=== PATIENT | male | born 1935 | race Caucasian/White ===

== ENCOUNTER → 2016-11-20 | Outpatient (CLI) | payer OTHER, MEDICARE | LOC: MOB LAB 11:53 | DX: E11.9 Type 2 diabetes mellitus without complications (principal); Z79.4 Long term (current) use of insulin; E55.9 Vitamin D deficiency, unspecified | CPT/HCPCS: 36415; 82306; 83036 ==

== ENCOUNTER 2016-12-12 16:05 | Inpatient (IN) | payer OTHER, MEDICARE ==
[2016-12-12] MEDS ORDERED: NORMAL SALINE 10 ML SYRINGE FLUSH IVP PRN ×2 (16:29→20:23)
[2016-12-12] MEDS ORDERED: Pantoprazole Inj 40 MG in Normal Saline Flush 10 ML IVP ONE (16:29)
[2016-12-12] MEDS ORDERED: Sodium Chloride 0.9% 1,000 ML PRIMARY IV ONE (16:29)
[2016-12-12] MEDS ORDERED: MORPHINE SULFATE 2 MG/1 ML IVP ONE ×2 (16:29→19:04)
[2016-12-12] MEDS ORDERED: ONDANSETRON 4 MG/2 ML VIAL IVP ONE (16:29)
[2016-12-12 16:41] LABS: HEMATOCRIT 55.8 % (42.0-52.0); HEMOGLOBIN 18.8 g/dL (14.0-18.0); MEAN CORPUSCULAR HGB CONC 33.7 g/dL (33-37); MEAN CORPUSCULAR VOLUME 86.1 FL (80-90); RED BLOOD COUNT 6.48 10^6/uL (4.70-6.10)
--- NOTE | 2016-12-12 16:50 | PDOC ---
General Adult HPI - General Chief Complaint: Abdomen Pain Stated Complaint: ABD PAIN X24 HOURS Date Seen by Provider: 12/12/16 Time Seen by Provider: 16:30 Source: POSITIVE: Patient Exam Limitations: POSITIVE: No limitations Nurse's Notes Reviewed & Considered: Yes - History of Present Illness Initial Comment: The patient is an 81-year-old male who presents to the emergency department with abdominal pain. He states that for the past 3 or 4 days he has not really had a normal bowel movement. Starting earlier this morning he developed some pain in the epigastric region. He states initially he had taken some ibuprofen and had fairly good pain relief. His pain returned this afternoon and was unimproved after taking another dose of Tylenol. He does not have any associated nausea or vomiting. He denies urinary complaints. He has not had any fevers or chills. He describes the pain is generalized in his abdomen however more intense towards the top of his abdomen. He does have some component of burning pain. He also has some radiation of pain through to his back. He has had previous inguinal hernia repairs however denies any other abdominal surgery. He did have an episode of pancreatitis some years back and was subsequently referred to the handbook writer in [place] and had a stent placed in his bile duct. He has not had any recurrence of that problem since then. He does report he thinks he has some problems with his gallbladder. He states that about once a month he gets pain in the right upper quadrant. He also reports that he had an upper endoscopy at one point that did show an ulcer and he was treated for H. pylori at that time. Have you received a tetanus shot in the past 10 years?: Unknown - Patient Home Medications Home Medications: Home Medications Nifedipine [Nifedipine ER] 30 mg PO DAILY 05/10/14 metFORMIN Tab [Glucophage Tab] 850 mg PO BID 05/10/14 Blood Sugar Diagnostic [Glucose Test Strip] 1 each IN PRN strip 05/12/14 Syring W-Ndl,Disp,Insul,0.5 ml [Insulin Syringe] 1 each MC PRN box 05/12/14 Losartan Potassium 1 tab PO DAILY #90 tab 07/21/14 Metoprolol Tartrate 1 tab PO BID #180 tab 07/21/14 Simvastatin 0.5 tab PO HS #45 tab 07/21/14 Triamcinolone Acetonide 15 gm TP QD #1 tube 07/21/14 Ibuprofen [Advil] 400 mg PO Q4H PRN 12/05/14 Aspirin 1 tab PO DAILY #30 tab 02/24/15 Tamsulosin HCl 1 cap PO QD #30 cap 02/24/15 Cholecalciferol (Vitamin D3) [Vitamin D3] 1 cap PO QD #30 cap 07/05/15 - Patient Allergies Allergies/Adverse Reactions: Allergies Allergy/AdvReac Type Severity Reaction Status Date / Time clopidogrel bisulfate Allergy MUSCLE Verified 12/12/16 16:41 [From Plavix] ACHES Penicillins Allergy HIVES Verified 12/12/16 16:41 Past Medical History - heen HEENT History: Cataracts Cardiovascular History: Hypertension, Previous KS, Hyperlipidemia, Other ( please comment) Additional Cardiovasular History: stent Respiratory History: Denies History Gastrointestinal History: Denies History Genitourinary History: Other (please comment) Additional Genitourinary History: URINARY RETENTION. UTI Endocrine History: Type 2 Diabetes (insulin) Musculoskeletal History: Denies History Prosthesis or Implant: No Neurological History: Denies History Blood Disorders: Denies History Psychiatric History: Denies History History of Sexually Transmitted Diseases: No Cancer History: Denies History History of MDRO: Unknown History of Other Communicable Diseases: No Alcohol Use: None Substance Use Type: None Previous Surgical History: Yes Type / Date of Surgery: CATARACT SX 06/2015. CAROTID ARTERY LT. CARDIAC STENT. KNEE SCOPE 2001. TONSILLECTOMY. MULTIPLE HERNIA REPAIRS Significant Family History: No pertinent family hx Past Medical History Reviewed: Reviewed - No Changes ROS - Limitations ROS Limitations: No Limitations Constitution: DENIES: Chills, Fever Cardiovascular: REPORTS: Denies Cardiac Symptoms. DENIES: Chest Pain Respiratory: REPORTS: Denies Resp Symptoms, Other (He was hypoxic on arrival here with oxygen saturations around 86% on room air. He states that his oxygen levels are always low and they checked them. He does not wear oxygen at home. He does have a history of smoking for 50 years and quit approximately 10 years ago.). DENIES: Shortness Of Breath Neurological: REPORTS: Denies Neuro Symptoms Gastrointestinal: REPORTS: Abdominal Pain, Constipation. DENIES: Nausea, Vomitting, Black Stools, Bloody Stools Endocrine: REPORTS: Denies Symptoms Musculoskeletal: REPORTS: Denies MS Symptoms Genitourinary: REPORTS: Denies Symptoms. DENIES: Dysuria, Difficulty Urinating Eyes: REPORTS: Denies Symptoms ENT: REPORTS: Denies Symptoms Skin: DENIES: Rash General Adult Exam - General Appearance General Appearance: POSITIVE: Alert, Cooperative, No Acute Distress - HEENT HEENT: POSITIVE: Head Inspection Nml, Eyes Inspection Nml, Ears Inspection Nml, Pharynx Inspect. Nml, PERRL, EOMI - Neck Neck: POSITIVE: Normal Inspection. NEGATIVE: Lymphadenopathy - Respiratory Respiratory: POSITIVE: No Respiratory Distress, Breath Sounds Normal - Cardiovascular Cardiovascular: POSITIVE: Regular Rate & Rhythm, No Murmur - Abdomen Abdomen: Soft: (All Quadrants) Additional Abdominal Details: His abdomen is slightly distended, he does have generalized abdominal tenderness although this is more prominent in the upper abdomen, no guarding or rebound tenderness, no palpable mass. - Skin Skin: POSITIVE: Normal Color, No Rash - Extremities Extremity: Normal ROM: (All Extremities), Normal Inspection: (All Extremities) - Neurological / Psychological Neurological: POSITIVE: Oriented X3, Motor Normal, Sensation Normal General Adult Progress - Results Reviewed by me Xrays/CTs/US Reviewed by me: Yes Discussed with Radiologist: Yes Radiology Findings: CT scan of the abdomen and pelvis with IV contrast reveals a cecal mass with associated dilated ileum and decompressed colon consistent with obstruction per radiologist. In addition he has other findings including cholelithiasis, small hypodense lesion in the liver, left adrenal mass, small right lower lung lesion. Lab Results Reviewed: Yes Lab Results:: Laboratory Results 12/12/16 Range/Units 16:30 WBC 14.23 H (4.8-10.8) 10^3/uL RBC 6.48 H (4.70-6.10) 10^6/uL Hgb 18.8 H (14.0-18.0) g/dL Hct 55.8 H (42.0-52.0) % MCV 86.1 (80-90) FL MCH 29.0 (27-31) PG MCHC 33.7 (33-37) g/dL RDW Std Deviation 47.3 (39-50) fL RDW Coeff of Mercedes 14.9 H (11.5-14.5) % Plt Count 230 (140-350) 10*3/uL MPV 10.0 (7.4-12.2) FL Neutrophils % (Manual) 73 (50-80) % Band Neutrophils % 1 (0-10) % Lymphocytes % (Manual) 18 (10-50) % Monocytes % (Manual) 7 (0-12) % Eosinophils % (Manual) 1 (0-8) % Basophils % (Manual) 0 (0-1) % Metamyelocytes % 0 % Myelocytes % 0 % Promyelocytes % 0 % Blast Cells 0 (0-1) % WBC Morphology Comment See comments (NORM) Plt Morphology Comment Normal morphology (NORM) RBC Morph Comment Normal morphology (NORM) Sodium 140 (135-145) meq/L Potassium 4.8 (3.8-5.2) meq/L Chloride 102 (98-112) meq/L Carbon Dioxide 27 (23-33) meq/L Anion Gap 11 (5-20) BUN 25 H (7-22) mg/dL Creatinine 1.2 (0.70-1.50) mg/dL Estimated GFR (>60 ml/min/1.73m(2)) BUN/Creatinine Ratio 20.83 H (6-20) Glucose 189 H (78-110) mg/dL Calculated Osmolality 298.0 H (267-292) mOsm/kg Calcium 9.4 (8.7-10.7) mg/dL Magnesium 1.9 (1.6-2.4) mg/dL Total Bilirubin 1.0 (0.3-1.2) mg/dL AST 41 (21-57) IU/L ALT 29 (21-72) IU/L Alkaline Phosphatase 90 (38-126) IU/L Troponin I < 0.012 (< 0.040) ng/mL C-Reactive Protein 1.0 H (0.0-0.9) mg/dL Total Protein 7.8 (6.1-8.0) g/dL Albumin 4.2 (3.5-4.8) g/dL Globulin 3.6 (2.50-4.10) g/dL Albumin/Globulin Ratio 1.10 L (1.3-2.0) mg/g Amylase 68 (30-110) U/L Lipase < 10 L (23-300) IU/L Serum Alcohol < 10 (0-10) mg/dL - Patient's Progress MDM / ED Course: An IV was established and the patient did receive 2 mg of morphine and 4 mg of Zofran IV as well as Protonix 40 mg IV. He did have pain relief initially. After CT the findings were discussed with the patient. A surgical consultation was obtained from Dr. Nobles. He recommended admission to the hospitalist and will see the patient in consultation. I subsequently discussed patient with Dr. Myers and he has agreed to admit the patient for further evaluation and treatment. He did receive a second dose of morphine 2 mg IV secondary to recurrent pain. He did not have any vomiting here in the emergency department. - Consult Counseled: POSITIVE: Patient, Family, RE: Lab Results, RE: Radiology Results, RE : DX Patient Care Time - Estimated PCT Patient Care Time (In Minutes): 45 Vital Signs - Recent Vital Signs Vital Signs: Vital Signs (Last 8 hours) Temp Pulse Resp BP Pulse Ox 12/12/16 16:15 84 16 91 12/12/16 16:05 96.2 F L 87 16 166/96 85 - VS Reviewed Vital Signs Reviewed: Yes Discharge Clinical Impression: Mass of cecum, Intestinal obstruction Discharge Disposition: Admit to Inpatient Condition: Stable Date Decision to Admit to Inpatient: 12/12/16 Time Decision to Admit to Inpatient: 18:45
--- NOTE | 2016-12-12 16:51 | EKG ---
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
[2016-12-12 16:57] LABS: BLOOD UREA NITROGEN 25 mg/dL (7-22); BUN/CREATININE RATIO 20.83 (6-20); CALCIUM 9.4 mg/dL (8.7-10.7); LIPASE < 10 IU/L (23-300); SERUM ALBUMIN 4.2 g/dL (3.5-4.8)
[2016-12-12 16:58] LABS: MAGNESIUM 1.9 mg/dL (1.6-2.4)
[2016-12-12 17:00] LABS: PLATELET MORPHOLOGY COMMENT NORMAL MORPHOLOGY (NORM); RBC MORPHOLOGY COMMENT NORMAL MORPHOLOGY (NORM)
[2016-12-12 17:01] LABS: BAND NEUTROPHILS % 1 % (0-10); BASOPHILS % (MANUAL) 0 % (0-1); EOSINOPHILS % (MANUAL) 1 % (0-8); LYMPHOCYTES % (MANUAL) 18 % (10-50); METAMYELOCYTES % 0 %; MONOCYTES % (MANUAL) 7 % (0-12); MYELOCYTES % 0 %; NEUTROPHILS % (MANUAL) 73 % (50-80); PROMYELOCYTES % 0 %; WBC MORPHOLOGY COMMENT SEE COMMENTS (NORM)
--- NOTE | 2016-12-12 18:19 | DI ---
CT ABDOMEN SCAN WITH IV CONTRAST, 12/12/2016 4:30 PM : Clinical History: Abdominal pain. Previous Exam: None at this facility. Scans are performed from the lower lung bases through the liver and kidneys with IV contrast. 75 ml o f Isovue 300 was injected IV. No oral or rectal contrast was ordered. 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 There is a sof t tissue mass measuring about 20 mm in diameter between the posteromedial aspect of the right diaphra gm and the right lateral margin of T12 vertebral body. Coronary artery calcifications are present in the right coronary artery distribution. There is a 10 mm low-density lesion along the anterolateral m argin of the right lobe of the liver and the density is indeterminate for representing either a cysti c lesion or a solid lesion. Calcified gallstones are present in the neck of the gallbladder without e vidence of acute cholecystitis. There is no abnormality of the spleen, pancreas, and right adrenal gl and. There is a 14 mm high density, probably enhancing lesion, of the left adrenal gland. Both kidney s are normal in size, shape, position and contour. There is no hydronephrosis or hydroureter. No thao l or ureteral calculi are present. There are no abnormal retrocrural or periaortic nodes. No ascites is present. READIN. 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 2. There is a 10 mm low-density lesion located along the anterolateral margin of the right lower honey er and this is indeterminate as to whether it is a solid or cystic lesion. 3. Cholelithiasis. 4. 14 mm lesion of the left adrenal gland, with possible enhancement. 5. Coronary artery disease with dense calcifications in the right coronary artery distribution. CT PELVIS SCAN WITH IV CONTRAST, 12/12/2016 4:30 PM: Clinical History: See above. Previous Exam: None at this facility. Scans are performed from just superior to the umbilicus to the symphysis pubis with IV contrast. This is the same bolus of contrast used for the CT scans of the abdomen. There is no ascites. The colon is completely decompressed and does contain some gas in minimal amount s of stool and there is the appearance of an enhancing 4-5 cm mass in what should be the region of th e cecum. No periserosal inflammatory changes are identified. The appendix is not visualized. The dist al ileum arising from this mass and extending retrograde to the junction between the jejunum and ileu m is dilated and has air-fluid levels. The jejunum is decompressed. The differential would be between a cecal mass involving the ileocecal valve versus appendicitis with an abscess. This latter possibil ity is felt to be much less likely. There are no hernias. There is marked prostatic hypertrophy. Ther e are no blastic or lytic bony changes noted. READIN. There is evidence of distention of the ileum from the junction near the jejunum although we to wh at should be the terminal ileum with an associated 4-5 cm enhancing lesion in the area of the cecum. 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 If a [facility] definitive procedure is required, consider a repeat CT scan of the abdomen and pelvis with IV con trast and water for rectal contrast, provided there are no signs of peritonitis. 2. Prosthetic hypertrophy. There is no evidence of blastic or lytic bony changes.
[2016-12-12] MEDS ORDERED: LIDOCAINE W/ SODIUM BICARB 0.5 ML SYR SUBD PRN ×2 (20:23→20:39)
[2016-12-12] MEDS ORDERED: Lactated Ringers 1,000 ML PRIMARY IV SCH (20:30)
--- NOTE | 2016-12-12 20:42 | CONSULT ---
Consult Note - Consult Consult Date: 12/12/16 Reason for Consult: PreOp Consulation : General Surgery Requesting Physician: Dr. Quinetro, Dr. Myers. Primary Care Provider: Joe Ma MD - History of Present Illness History of Present Illness: Patient is an 81-year-old male who reports problems started a couple days ago. Yesterday he didn't have much appetite and had some abdominal discomfort. He ate fruit for dinner. This morning he awoke and felt bloated. He drink some coffee and developed severe abdominal pain. He took some Advil with resolution. He then ate beams and ham for lunch and developed severe pain. He presented to the emergency room for the same. He has not had a normal bowel movement since late last week. He has had a decreased appetite. He feels bloated. His abdomen is distended. He has had no nausea or vomiting. He has never had anything like this before. Patient reports he has had a colonoscopy but the last one was at least 12 years ago. He reports his bowel function had been normal until late last week. On presentation his abdomen was bloated with generalized tenderness. His white count was elevated at 14,000. He had a CAT scan of his abdomen and pelvis. He has gallstones in his gallbladder. He has dilation of his terminal ileum with fecalization of the small bowel contents. There is an enhancing lesion in the cecum. The colon is decompressed passed the cecum. The appendix was not clearly seen. There is a lesion in his left adrenal gland. There are several in his liver. There is one between his diaphragm and his 12th thoracic vertebrae. These are indeterminate at this time. I have personally reviewed the CT scans and discussed them with the radiologist. The patient has a bowel obstruction. The proximal bowel is not particularly dilated. I discussed all these findings with the patient and his family. Patient will be admitted to the hospitalist service and tuned up and hydrated overnight. We' ll check his labs in the morning. We'll get an ultrasound of his liver to see if we need to address these lesions at the time of surgery. If they are simple cysts no biopsies will be needed. Proceed with exploratory laparotomy with planned right hemicolectomy with anastomosis with possible cholecystectomy and possible liver biopsy as indicated at the time of surgery. We will plan surgery for approximately noon tomorrow. Review of Systems - Gastrointestinal Gastrointestinal / Abdominal: REPORTS: Abdominal Pain, Poor Appetite, Bloating, See HPI Past Medical History Medical History: COPD. Diabetes. Hypertension. Hyperlipidemia. Coronary artery disease with previous myocardial infarction and coronary stent placement. Cerebrovascular disease. Peripheral vascular disease. Gout. Surgical History: Bilateral inguinal herniorrhaphy. Subsequent right inguinal herniorrhaphy. Final right inguinal herniorrhaphy in 2006. Left carotid endarterectomy. Tonsillectomy and adenoidectomy. Bilateral cataract surgery. Knee arthroscopy. Remote colonoscopy. Tobacco Use: Former Smoker Substance Use Type: None Medication / Allergies Home Medications: Home Medications Medication Instructions Recorded Confirmed Type Nifedipine [Nifedipine ER] 30 mg PO DAILY 05/10/14 12/12/16 History metFORMIN Tab [Glucophage Tab] 850 mg PO BID 05/10/14 12/12/16 History Blood Sugar Diagnostic [Glucose 1 each IN PRN strip 05/12/14 12/12/16 History Test Strip] Syring W-Ndl,Disp,Insul,0.5 ml 1 each MC PRN box 05/12/14 12/12/16 History [Insulin Syringe] Losartan Potassium 1 tab PO DAILY #90 tab 07/21/14 12/12/16 Clinic Metoprolol Tartrate 1 tab PO BID #180 tab 07/21/14 12/12/16 Clinic Simvastatin 0.5 tab PO HS #45 tab 07/21/14 12/12/16 Clinic Triamcinolone Acetonide 15 gm TP QD #1 tube 07/21/14 12/12/16 Clinic Ibuprofen [Advil] 400 mg PO Q4H PRN 12/05/14 12/12/16 History Aspirin 1 tab PO DAILY #30 tab 02/24/15 12/12/16 Clinic Tamsulosin HCl 1 cap PO QD #30 cap 02/24/15 12/12/16 Clinic Cholecalciferol (Vitamin D3) 1 cap PO QD #30 cap 07/05/15 12/12/16 Clinic [Vitamin D3] Allergies/Adverse Reactions: Allergies Allergy/AdvReac Type Severity Reaction Status Date / Time clopidogrel bisulfate Allergy MUSCLE Verified 12/12/16 20:22 [From Plavix] ACHES Penicillins Allergy HIVES Verified 12/12/16 20:22 Exam - Vitals Vital Signs: Vital Signs Weight 76.748 kg - General General Appearance: POSITIVE: No Acute Distress, Cooperative - Respiratory Respiratory Exam: POSITIVE: Clear to Auscultation - Bilaterally, Breathing Non Labored - Cardiovascular Cardiovascular Exam: POSITIVE: RRR, No Murmur - GI/Abdominal GI/Abdominal Exam: POSITIVE: Soft, Hypoactive Bowel Sounds Additional GI/Abdominal Exam Details: Abdomen is distended but soft. Dilated bowel loops can be palpated through his thin abdominal wall. No peritoneal signs. Diffusely tender. No obvious masses. Obstructive bowel tones. 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 Needs surgical correction. Plan right colectomy with planned anastomosis tomorrow. The possibility of an ostomy has been discussed. Possible liver biopsy as well as possible cholecystectomy has also been discussed.The procedure has been discussed with the patient in complete yet simple terms including benefits, risks, and alternatives. All questions have been answered. Informed consent has been obtained. (2) Cecum mass Current Visit: Yes Status: Acute Priority: High Diagnosis Date: 12/12/16 Comment: Causing obstruction as above. Possible liver, lung, and adrenal metastases. (3) Cholelithiasis Current Visit: Yes Status: Chronic Priority: Low Diagnosis Date: 12/12/16 Comment: No obvious symptoms. Does not appear to have acute cholecystitis. Possible cholecystectomy at time of surgery depending on how he is doing.
--- NOTE | 2016-12-12 20:47 | PDOC ---
History and Physical - History of Present Illness Date and Time of Service: 12/12/2016 8:30 PM Chief Complaint: Abdominal pain of one day duration History of Present Illness: This is a 81 years old male with medical history significant for history of diabetes, hypertension, hyperlipidemia, coronary artery disease with previous infarct, peripheral vascular disease who presented to the ER with history of abdominal pain. He said he didn't feel good yesterday with some discomfort but this morning he woke up and felt bloated he had some coffee and then had severe abdominal pain all over he took some Advil and that seemed to help. He ate and then after that the pain started again was severe and the because of that he came into the ER. There was no vomiting, he did say that he is been constipated for the last few days. He is bloated. There is no melena. Because of all the symptoms he came into the ER evaluation in the ER with a CT suggested distention of the ileum from the Jejunum, there is 5 cm enhancing lesion in the area of the cecum. 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 This was discussed with Dr. Nobles who suggested admission to the hospitalist service. He is more comfortable he said now after the morphine that he got in the ER. He is not nauseated. Still bloated. He's not passing gas. He is denying currently shortness of breath or chest pain. Past Medical History Medical History: 1. Coronary artery disease with previous TN and stenting in 2000. 2. Diabetes since 2000. 3. Hypertension. 4. Hyperlipidemia. 5. History of acute pancreatitis in 2001 Surgical History: 1. Status post the carotid endarterectomy 2011. 2. Bilateral inguinal hernia repair in the 80s. 3. Right inguinal hernia repair in 2006. 4. Tonsillectomy. 5. Cataract surgery Pertinent Family History: Sister had colon cancer at age 44, father at age 74 from pancreatic cancer Past Social History: Used to smoke quit more than 10 years ago, occasionally drinks, no drugs. Tobacco Use: Former Smoker Substance Use Type: None Alcohol Use: Occasionally Medication / Allergies Home Medications: Home Medications Medication Instructions Recorded Confirmed Type Nifedipine [Nifedipine ER] 30 mg PO DAILY 05/10/14 12/12/16 History metFORMIN Tab [Glucophage Tab] 850 mg PO BID 05/10/14 12/12/16 History Blood Sugar Diagnostic [Glucose 1 each IN PRN strip 05/12/14 12/12/16 History Test Strip] Syring W-Ndl,Disp,Insul,0.5 ml 1 each MC PRN box 05/12/14 12/12/16 History [Insulin Syringe] Losartan Potassium 1 tab PO DAILY #90 tab 07/21/14 12/12/16 Clinic Metoprolol Tartrate 1 tab PO BID #180 tab 07/21/14 12/12/16 Clinic Simvastatin 0.5 tab PO HS #45 tab 07/21/14 12/12/16 Clinic Triamcinolone Acetonide 15 gm TP QD #1 tube 07/21/14 12/12/16 Clinic Ibuprofen [Advil] 400 mg PO Q4H PRN 12/05/14 12/12/16 History Aspirin 1 tab PO DAILY #30 tab 02/24/15 12/12/16 Clinic Tamsulosin HCl 1 cap PO QD #30 cap 02/24/15 12/12/16 Clinic Cholecalciferol (Vitamin D3) 1 cap PO QD #30 cap 07/05/15 12/12/16 Clinic [Vitamin D3] Allergies/Adverse Reactions: Allergies Allergy/AdvReac Type Severity Reaction Status Date / Time clopidogrel bisulfate Allergy MUSCLE Verified 12/13/16 06:50 [From Plavix] ACHES Penicillins Allergy HIVES Verified 12/13/16 06:50 Review of Systems - Review of Systems All Systems: Reviewed & No Additional Complaints Except as Stated Exam - Vitals Vital Signs: Vital Signs Height 6 ft Weight 169 lb 3.2 oz - General General Appearance: POSITIVE: No Acute Distress - Head Head Exam: POSITIVE: Normal Inspection, Atraumatic - Eye Eye Exam: POSITIVE: Normal Appearance - ENT ENT Exam: POSITIVE: Normal Exam - Neck Neck Exam: POSITIVE: Normal Inspection - Respiratory Respiratory Exam: POSITIVE: Clear to Auscultation - Bilaterally - Cardiovascular Cardiovascular Exam: POSITIVE: RRR - GI/Abdominal GI/Abdominal Exam: POSITIVE: Non Tender, Soft, Distended, No Organomegaly - Rectal Rectal Exam: POSITIVE: Deferred - External Exam: POSITIVE: Deferred - Extremities Extremities Exam: POSITIVE: Normal Inspection - Back Back Exam: POSITIVE: Normal Inspection - Neurological Neurological Exam: POSITIVE: Alert, Oriented x 3, CN II-XII Intact, Speech Intact / Clear, Moves All Extremities Equally - Psychiatric Psychiatric Exam: POSITIVE: Normal Affect - Integumentary Integumentary Exam: POSITIVE: Normal Color Results - Labs CBC and BMP: 12/13/16 04:37 12/13/16 04:37 - EKG Data -: EKG Interpreted by Me Rate: Normal EKG Shows Normal: Sinus Rhythm - EKG Data EKG Interpretation: Other (EKG showed normal sinus rhythm with right axis deviation and right bundle branch block and old inferior TN. This is similar to the EKG that he had back in October 2015) - Imaging Status: Report Reviewed by Me (CT showed of the abdomen showed 2 cm soft tissue mass which is pleural based along the posterior medial margin of the right diaphragm, there is1 cm low-density lesion located along the anterolateral margin of the right lobe of the liver could be solid or cystic, cholelithiasis, 14 mm lesion of the left adrenal gland with possible enhancement, there is evidence of distention of the ileum from the junction near the jejunum there is an associated 4-5 cm enhancing lesion in the area of the cecum this 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 Nobles suggested fluid, pain medications and he'll be taken to surgery tomorrow. Dr. Nobles ordered repeat labs and ordered a ultrasound of the liver. (2) Hypertension Current Visit: Yes Status: Chronic Comment: We'll hold off on the losartan and nifidinpe for now will continue with the beta elvie. (3) History of coronary artery disease Current Visit: Yes Status: Chronic Comment: Continue statin and beta elvie for now. (4) History of BPH Current Visit: Yes Status: Chronic Comment: Same med (5) Diabetes Current Visit: Yes Status: Acute Comment: Hold off on the metformin now because he had contrast Photo / Body Diagrams - Uploaded Photos Uploaded Photos:
[2016-12-12] MEDS: MORPHINE SULFATE 2 MG/1 ML IVP PRN ×2 (20:57→22:47)
[2016-12-12] MEDS: D5-1/2NS + 20mEq KCL 1,000 ML PRIMARY IV SCH (20:58)
[2016-12-12] MEDS: ONDANSETRON 4 MG/2 ML VIAL IVP PRN (21:08)
[2016-12-12] MEDS ORDERED: TAMSULOSIN 0.4 MG CAPSULE PO SCH (21:15)
[2016-12-12] MEDS ORDERED: Simvastatin Tab 40 MG TAB PO SCH (21:30)
[2016-12-12] MEDS: Metoprolol TARTRATE Tab 50 MG TAB PO SCH (22:30)
[2016-12-13] MEDS: MORPHINE SULFATE 2 MG/1 ML IVP PRN ×3 (01:34→10:30)
[2016-12-13 05:08] LABS: BASOPHILS # (AUTO) 0.03 10*3/UL; BASOPHILS % (AUTO) 0.1 % (0-1); EOSINOPHILS # (AUTO) 0 10*3/UL; EOSINOPHILS % (AUTO) 0 % (0-8); HEMATOCRIT 53.3 % (42.0-52.0); HEMOGLOBIN 17.9 g/dL (14.0-18.0); MEAN CORPUSCULAR HEMOGLOBIN 29.4 PG (27-31); MEAN CORPUSCULAR HGB CONC 33.6 g/dL (33-37); MEAN CORPUSCULAR VOLUME 87.7 FL (80-90); MEAN PLATELET VOLUME 10.2 FL (7.4-12.2); MONOCYTES # (AUTO) 2.13 10*3/UL (0.3-0.8); MONOCYTES % (AUTO) 10.5 % (5-15); NEUTROPHILS # (AUTO) 17.14 10*3/UL; NEUTROPHILS % (AUTO) 84.2 % (50-80); RED BLOOD COUNT 6.08 10^6/uL (4.70-6.10)
[2016-12-13] MEDS: D5-1/2NS + 20mEq KCL 1,000 ML PRIMARY IV SCH (05:12)
[2016-12-13 05:26] LABS: PLATELET MORPHOLOGY COMMENT NORMAL MORPHOLOGY (NORM); RBC MORPHOLOGY COMMENT NORMAL MORPHOLOGY (NORM); WBC MORPHOLOGY COMMENT NORMAL MORPHOLOGY (NORM)
[2016-12-13 05:32] LABS: CALCIUM 8.2 mg/dL (8.7-10.7); SERUM ALBUMIN 3.5 g/dL (3.5-4.8)
[2016-12-13] MEDS: ONDANSETRON 4 MG/2 ML VIAL IVP PRN (08:19)
[2016-12-13] MEDS: Metoprolol TARTRATE Tab 50 MG TAB PO SCH (08:39)
[2016-12-13] MEDS ORDERED: TAMSULOSIN 0.4 MG CAPSULE PO SCH (09:00)
[2016-12-13] MEDS: Lactated Ringers 1,000 ML PRIMARY IV SCH ×2 (09:40→18:21)
--- NOTE | 2016-12-13 09:40 | PDOC(PROG) ---
Date and Time of Service: 12/13/2016 9:30 AM Interval History: Started having nausea and vomiting through the night. Has vomited 500 mL. Dry heaves this morning. Still having some pain but no significant change. Feels miserable this morning. He is voiding. No flatus or bowel movement. Objective : Data - Labs CBC and BMP: 12/13/16 04:37 12/13/16 04:37 Labs - Last 24 Hours: Laboratory Results 12/13/16 Range/Units 04:37 WBC 20.36 H (4.8-10.8) 10^3/uL RBC 6.08 (4.70-6.10) 10^6/uL Hgb 17.9 (14.0-18.0) g/dL Hct 53.3 H (42.0-52.0) % MCV 87.7 (80-90) FL MCH 29.4 (27-31) PG MCHC 33.6 (33-37) g/dL RDW Std Deviation 48.4 (39-50) fL RDW Coeff of Mercedes 15.0 H (11.5-14.5) % Plt Count 223 (140-350) 10*3/uL MPV 10.2 (7.4-12.2) FL Immature Gran % (Auto) 0.3 (0-5) % Neut % (Auto) 84.2 H (50-80) % Lymph % (Auto) 4.9 L (10-50) % [place] % (Auto) 10.5 (5-15) % Eos % (Auto) 0 (0-8) % Baso % (Auto) 0.1 (0-1) % Immature Gran # (Auto) 0.06 10*3/UL Neut # (Auto) 17.14 10*3/UL Lymph # (Auto) 1.00 10*3/uL [place] # (Auto) 2.13 H (0.3-0.8) 10*3/UL Eos # (Auto) 0 10*3/UL Baso # (Auto) 0.03 10*3/UL WBC Morphology Comment Normal morphology (NORM) Plt Morphology Comment Normal morphology (NORM) RBC Morph Comment Normal morphology (NORM) Sodium 140 (135-145) meq/L Potassium 5.1 (3.8-5.2) meq/L Chloride 102 (98-112) meq/L Carbon Dioxide 28 (23-33) meq/L Anion Gap 10 (5-20) BUN 23 H (7-22) mg/dL Creatinine 1.0 (0.70-1.50) mg/dL Estimated GFR (>60 ml/min/1.73m(2)) BUN/Creatinine Ratio 23.00 H (6-20) Glucose 211 H (78-110) mg/dL Calculated Osmolality 299.0 H (267-292) mOsm/kg Calcium 8.2 L (8.7-10.7) mg/dL Total Bilirubin 1.1 (0.3-1.2) mg/dL AST 65 H (21-57) IU/L ALT 25 (21-72) IU/L Alkaline Phosphatase 73 (38-126) IU/L Total Protein 6.6 (6.1-8.0) g/dL Albumin 3.5 (3.5-4.8) g/dL Globulin 3.2 (2.50-4.10) g/dL Albumin/Globulin Ratio 1.00 L (1.3-2.0) mg/g - Vital Signs Vital Signs and I&O: Vital Signs - Last Taken Temperature 98.8 F 12/13/16 08:05 Pulse Rate 92 12/13/16 08:05 Respiratory Rate 18 12/13/16 08:05 Blood Pressure 146/82 12/13/16 08:05 Pulse Ox 91 12/13/16 08:05 Intake and Output (24hr x 4 totals) 12/11/16 12/12/16 12/13/16 12/14/16 05:59 05:59 05:59 05:59 Intake Total 1000 Output Total 950 150 Balance 50 -150 Objective : Exam - General General Appearance: Cooperative, Mild Distress - Respiratory Respiratory Exam: Clear to Auscultation - Bilaterally, Breathing Non Labored - Cardiovascular Cardiovascular Exam: RRR, No Murmur - GI/Abdominal GI/Abdominal Exam: Distended Additional GI/Abdominal Exam Details: Abdomen distended but soft. Few bowel tones. Obstructive in nature. Diffuse tenderness. No peritoneal signs. - Neurological Neurological Exam: Alert, Oriented x 3 - Psychiatric Psychiatric Exam: Normal Affect, Normal Mood Assessment and Plan - Patient Problems (1) Bowel obstruction Current Visit: Yes Status: Acute Priority: High Diagnosis Date: 12/12/16 Comment: Plan surgical correction at approximately noon today. Patient is dry. We will increase his IV fluids. Discussed with patient and the family. Ultrasound liver pending at this time. (2) Cecum mass Current Visit: Yes Status: Acute Priority: High Diagnosis Date: 12/12/16 Comment: Plan surgical resection today. (3) Cholelithiasis Current Visit: Yes Status: Chronic Priority: Low Diagnosis Date: 12/12/16 Comment: Evaluated at the time of operation today.
--- NOTE | 2016-12-13 10:57 | DI ---
GALLBLADDER AND LIVER ULTRASOUND, 12/13/2016 7:00 AM: Clinical History: Abnormal CT scan of the abdomen revealed 2 low-density 10 mm lesions of the liver a nd cholelithiasis. Previous Exam: None at this facility. Technique: Scans are performed through the right upper quadrant in multiple projections. The patient was unable to tolerate any position except almost a true left lateral decubitus position for this brigette dy. The gallbladder is well distended and has a normal wall thickness. There are gallstones. There is no Del Toro's sign. The common bile duct and pancreas, right kidney, and aorta were not imaged. The IVC is normal. There is a small amount of ascites. Readin. Scans through the liver were technically difficult because the approach could also be made with t he patient in the decubitus position and through the intercostal spaces. The liver itself appears nor mal. The 2 previous 10 mm low density lesion seen on the CT scan could not be visualized. 2. Cholelithiasis. There is no Del Toro's sign. 3. Small amount of ascites.
[2016-12-13] MEDS ORDERED: Lactated Ringers 1,000 ML PRIMARY IV SCH (11:00)
[2016-12-13] MEDS ORDERED: Albumin Human Soln 25% 200 ML IV ONE (11:23)
[2016-12-13] MEDS ORDERED: Lactated Ringers 1,000 ML PRIMARY IV ONE ×3 (11:27→13:52)
[2016-12-13] MEDS ORDERED: LIDOCAINE W/ SODIUM BICARB 0.5 ML SYR ONE (11:27)
[2016-12-13] MEDS ORDERED: fentaNYL Inj 250 MCG/5 ML VIAL ONE (11:29)
[2016-12-13] MEDS ORDERED: MIDAZOLAM 5 MG/1 ML ONE (11:29)
[2016-12-13] MEDS ORDERED: MORPHINE SULFATE/PF 10 MG/10 ML AMPULE ONE (11:29)
[2016-12-13] MEDS ORDERED: Ertapenem Inj 1 GM in Sodium Chloride 0.9% 100 ML IV SCH (11:30)
[2016-12-13] MEDS ORDERED: Prochlorperazine Edisylate Inj 10mg/2ml vial ONE (11:49)
[2016-12-13] MEDS ORDERED: SUCCINYLCHOLINE CHLORIDE 20 MG/1 ML - 10 ML ONE (12:11)
[2016-12-13] MEDS ORDERED: ROCURONIUM 10 MG/1 ML - 5 ML VIAL IVP ONE (12:11)
[2016-12-13] MEDS ORDERED: ERTAPENEM 1 GM VIAL ONE (12:23)
[2016-12-13] MEDS ORDERED: Sodium Chloride 0.9% 100 ML IV ONE (12:23)
[2016-12-13] MEDS ORDERED: OXYMETAZOLINE 0.05% 15 ML NASAL SPRAY ONE (12:44)
[2016-12-13] MEDS ORDERED: LIDOCAINE MPF 2% - 5 ML (20 MG/1 ML) ONE ×3 (12:47→14:56)
[2016-12-13] MEDS ORDERED: Sodium Chloride 0.9% 250 ML IV ONE (13:07)
[2016-12-13] MEDS ORDERED: PHENYLEPHRINE 10,000 MCG/1 ML VIAL ONE (13:07)
[2016-12-13] MEDS ORDERED: NORMAL SALINE 10 ML SYRINGE FLUSH IVP PRN ×3 (13:27→17:10)
[2016-12-13] MEDS ORDERED: HYDROmorphone 2 MG/1 ML IVP PRN (13:27)
[2016-12-13] MEDS ORDERED: Nalbuphine Inj 20 MG/ML Ampule IVP PRN (13:27)
[2016-12-13] MEDS ORDERED: Prochlorperazine Edisylate Inj 10mg/2ml vial IVP PRN (13:27)
--- NOTE | 2016-12-13 13:27 | CRNA.PROCE ---
Central Neuraxis Block Placemt - - Safety Measures: Time Out Taken - - Type of Block: Epidural Reason for Block: Surgical, Analgesia Positioning: Sitting Skin Prep Used: ChloroPrep Draped: Yes Skin Infiltration - Enter Amount Used in Comment Field: 1% Xylocaine (mL): Yes ( skin wheal) Spinal Needle Used: 18 Hustead 80 mm Local Anesthetic - Enter Amount Used in Comment Field: 1.5 % Xylocaine with Epinephrine 1:200,000 (mL): Yes (5ml) Number of Centimeters Catheter Threaded: 4 (L2L3) Bioclusive Dressing Applied: Yes
[2016-12-13] MEDS ORDERED: SODIUM CHLORIDE 0.9% EPIDURAL SCH ×2 (13:30→18:42)
[2016-12-13] MEDS ORDERED: BUPIVACAINE EPIDURAL SCH ×2 (13:30→18:42)
[2016-12-13] MEDS ORDERED: SUGAMMADEX SODIUM 200 MG/2 ML VIAL IV ONE (13:55)
[2016-12-13] MEDS ORDERED: HALOPERIDOL LACTATE 5 MG/1 ML AMPULE IVP ONE (14:00)
[2016-12-13] MEDS ORDERED: Water, Sterile for Inj 10 ML ONE (14:05)
[2016-12-13] MEDS ORDERED: LIDOCAINE HCL 2 % 10 ML JELLY URO-JECT TOPICAL ONE (14:11)
--- NOTE | 2016-12-13 14:46 | GEN.OPNOTE ---
Operative Note Surgery Date: 12/13/16 Preoperative Diagnosis: Cecal mass. Distal small bowel obstruction secondary to cecal mass. Cholelithiasis. Liver lesions. Postoperative Diagnosis: Same. Colon cancer. Procedure: #1 Right hemicolectomy with ileocolostomy. #2 cholecystectomy. #3 wedge biopsy of liver. Surgeon: Deangelo Nobles MD Woven Wood Shade Assembler: Ishmael Gomez MD Anesthesia Provider: Antonio Hobson CRNA Anesthesia Type: General Estimated Blood Loss (mL): 20 Fluids: 3000 mL of crystalloid. 200 mL of albumin. 1 g of IV Invanz at the start of the procedure. Pathology: Specimens to pathology included the resected colon specimen, the gallbladder, and the liver biopsy. Indications: Patient presented last evening with what appeared to be a high-grade distal small bowel obstruction with an enhancing lesion in his cecum. He was hydrated overnight and taken to the operating room for definitive correction of his bowel obstruction. 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 Chronic cholecystitis. Right lobe liver lesion. No evidence of carcinomatosis. Complications: None. Operative Summary: The patient was taken to the operating suite and placed in the operating table in a supine position. Following the induction of general anesthetic the abdomen was prepped and draped in a sterile fashion. A surgical timeout was done. A transverse incision was made and carried through the subcutaneous tissue with electrocautery. The anterior sheath was transected with electrocautery. The rectus muscle was transected. The posterior sheath and peritoneum were elevated and incised. An Thiago wound retractor was placed. Palpation of the abdomen revealed the liver lesions as described below. There was a mass at the ileocecal valve. There was diverticulosis. No other intra- abdominal pathology. There was a palpable lesion in the right lobe of the liver and the left lobe of the liver. The right lobe was amenable to biopsy. A wedge biopsy was performed with a 15 scalpel blade. The cavity was treated with electrocautery. Hemostasis was assured. The right colonic attachments were taken down with electrocautery. The ileal transection site was chosen. The ileum was cleaned of fatty tissue and transected with a linear stapler. The colon transection site was chosen. This was the proximal transverse colon. The fatty tissues were cleared from the colon and the colon was transected with a linear stapler. The mesocolon was taken down by serially clamping, dividing, and ligating the mesenteric vessels with 0 and 2-0 Vicryl sutures until the specimen could be removed. The specimen was removed from the operative field. I then proceeded with an open cholecystectomy. The cystic duct was isolated. It was clipped twice distally and once proximally and divided. The cystic artery was isolated. It was clipped twice proximally and once distally and divided. The gallbladder was taken from the hepatic bed using electrocautery. Hemostasis was assured. Appropriate irrigation and suctioning were performed. Attention was then turned back to the bowel. The mesenteric defect was closed with running 2-0 Vicryl. The bowel was placed [id number]. The bowel was opened both on the ileal and colonic ends. A linear stapler was placed intraluminally, closed and fired. The defect created from the stapler was closed transversely with a TA 60 stapler. This created a [id number] yet functional end to end anastomosis. The anastomosis was inspected circumferentially and was intact. There was some bleeding from the bowel at the staple lines and this was taken care of with [id number] sutures of 3-0 Vicryl. A stitch was placed in the crotch of the anastomosis for security. The anastomosis was widely patent. At this point the surgeons and quality analyst/technical writer changed gowns and gloves. Extensive irrigation was undertaken. Hemostasis was assured. The intestinal contents were returned to the relative anatomic position and covered with the omentum. Bowel edges were viable at the anastomosis. The posterior sheath and peritoneum were closed with running #1 Vicryl. The anterior sheath was closed with running #1 Vicryl. The wound was irrigated. Hemostasis was assured. The wound was closed with surgical mercedes followed by a sterile dressing. The Whatley was not draining during the procedure. I removed the Whatley catheter which had been placed by the preoperative nurse. A 14 Coude catheter was replaced. There was return of urine. The balloon was inflated and the catheter was placed to gravity drainage. Patient tolerated the procedure well without complication. He was taken to the recovery room in stable condition. All counts were correct. Patient Problems - Patient Problem List (1) Bowel obstruction Current Visit: Yes Status: Acute Diagnosis Date: 12/12/16 Priority: High (2) Cecum mass Current Visit: Yes Status: Acute Diagnosis Date: 12/12/16 Priority: High (3) Cholelithiasis Current Visit: Yes Status: Chronic Diagnosis Date: 12/12/16 Priority: Low
[2016-12-13] MEDS ORDERED: D5-LR + 20mEq KCL 1,000 ML PRIMARY IV SCH (15:24)
[2016-12-13] MEDS ORDERED: ONDANSETRON 4 MG/2 ML VIAL IVP PRN ×3 (15:24→17:10)
--- NOTE | 2016-12-13 15:49 | PDOC(PROG) ---
Interval History: Patient seen in the recovery room still not fully awake yet had 4 bowel movements postop. He underwent hemicolectomy and cholecystectomy and liver biopsy secondary to colon CA Objective : Data - Labs CBC and BMP: 12/13/16 04:37 12/13/16 04:37 Labs - Last 24 Hours: Laboratory Results 12/13/16 Range/Units 04:37 WBC 20.36 H (4.8-10.8) 10^3/uL RBC 6.08 (4.70-6.10) 10^6/uL Hgb 17.9 (14.0-18.0) g/dL Hct 53.3 H (42.0-52.0) % MCV 87.7 (80-90) FL MCH 29.4 (27-31) PG MCHC 33.6 (33-37) g/dL RDW Std Deviation 48.4 (39-50) fL RDW Coeff of Mercedes 15.0 H (11.5-14.5) % Plt Count 223 (140-350) 10*3/uL MPV 10.2 (7.4-12.2) FL Immature Gran % (Auto) 0.3 (0-5) % Neut % (Auto) 84.2 H (50-80) % Lymph % (Auto) 4.9 L (10-50) % [place] % (Auto) 10.5 (5-15) % Eos % (Auto) 0 (0-8) % Baso % (Auto) 0.1 (0-1) % Immature Gran # (Auto) 0.06 10*3/UL Neut # (Auto) 17.14 10*3/UL Lymph # (Auto) 1.00 10*3/uL [place] # (Auto) 2.13 H (0.3-0.8) 10*3/UL Eos # (Auto) 0 10*3/UL Baso # (Auto) 0.03 10*3/UL WBC Morphology Comment Normal morphology (NORM) Plt Morphology Comment Normal morphology (NORM) RBC Morph Comment Normal morphology (NORM) Sodium 140 (135-145) meq/L Potassium 5.1 (3.8-5.2) meq/L Chloride 102 (98-112) meq/L Carbon Dioxide 28 (23-33) meq/L Anion Gap 10 (5-20) BUN 23 H (7-22) mg/dL Creatinine 1.0 (0.70-1.50) mg/dL Estimated GFR (>60 ml/min/1.73m(2)) BUN/Creatinine Ratio 23.00 H (6-20) Glucose 211 H (78-110) mg/dL Calculated Osmolality 299.0 H (267-292) mOsm/kg Calcium 8.2 L (8.7-10.7) mg/dL Total Bilirubin 1.1 (0.3-1.2) mg/dL AST 65 H (21-57) IU/L ALT 25 (21-72) IU/L Alkaline Phosphatase 73 (38-126) IU/L Total Protein 6.6 (6.1-8.0) g/dL Albumin 3.5 (3.5-4.8) g/dL Globulin 3.2 (2.50-4.10) g/dL Albumin/Globulin Ratio 1.00 L (1.3-2.0) mg/g Objective : Exam - Respiratory Respiratory Exam: Clear to Auscultation - Bilaterally, Breathing Non Labored, Normal To Percussion - Cardiovascular Cardiovascular Exam: RRR, No Murmur, No Clicks - GI/Abdominal GI/Abdominal Exam: Non Distended, Soft Assessment and Plan - Patient Problems (1) Bowel obstruction Current Visit: Yes Status: Acute Priority: High Diagnosis Date: 12/12/16 Comment: Status post hemicolectomy and liver biopsy and cholecystectomy discussed with surgery patient is postop had 4 BMs in the recovery room (2) Cecum mass Current Visit: Yes Status: Acute Priority: High Diagnosis Date: 12/12/16 (3) History of coronary artery disease Current Visit: Yes Status: Chronic Comment: We will cut in half his metoprolol to 25 twice a day and monitor patient closely Photo / Body Diagrams - Uploaded Photos Uploaded Photos:
--- NOTE | 2016-12-13 16:05 | CD ---
[facility] Interpretive Statements [email or web address]
--- NOTE | 2016-12-13 16:14 | DI ---
AP CHEST X-RAY, 12/13/2016 3:29 PM : Clinical History: Pulmonary edema. Previous Exam: None at this facility. There is no acute soft tissue or bony abnormality. There is cardiomegaly with perivascular haziness i ndicating interstitial pulmonary edema. There is no acute infiltrate or effusion. There is pulmonary arterial hypertension. There are no pulmonary nodules. Readin. Cardiomegaly with CHF manifested by interstitial pulmonary edema. 2. There is pulmonary arterial hypertension.
[2016-12-13 16:22] LABS: ABG BASE EXCESS -5 MMOL/L (-2-2); ABG PCO2 53 MMHG (34-38); ABG PH 7.23 (7.35-7.45); ABG PO2 70 MMHG (65-75); COLLECTION SITE L RADIAL
[2016-12-13 16:23] LABS: ABG OXYGEN SATURATION 90 % (90-100); ALLEN TEST N
--- NOTE | 2016-12-13 17:24 | EKG ---
[address] [address] Measurements Intervals [place] Rate: 117 P: 50 SD: 140 QRS: 258 QRSD: 149 T: 0 QT: 289 QTc: 359 Interpretive Statements SINUS TACHYCARDIA MARKED RIGHT AXIS DEVIATION RIGHT BUNDLE BRANCH BLOCK NEW ST SEGMENT ELEVATION IN INFERIOR LEADS INFERIOR MYOCARDIAL INFARCTION POSSIBLY ACUTE ACUTE SC Compared to ECG 12/12/2016 16:48:09 Sinus rhythm no longer present Myocardial infarct finding still present Electronically Signed On 12-14-16 12:32:46 MDT by Heriberto Reagan [email or web address]
[2016-12-13] MEDS: D5-LR + 20mEq KCL 1,000 ML PRIMARY IV SCH (18:12)
[2016-12-13] MEDS ORDERED: METOPROLOL TARTRATE 5 MG/5 ML VIAL IVP STA ×3 (18:30→19:40)
[2016-12-13] MEDS ORDERED: METOPROLOL TARTRATE 5 MG/5 ML VIAL IVP ONE ×2 (18:32→18:34)
[2016-12-13] MEDS ORDERED: FUROSEMIDE 10 MG/1 ML - 4 ML IVP ONE (18:33)
[2016-12-13] MEDS ORDERED: Sodium Chloride 0.9% 500 ML PRIMARY IV ONE (19:49)
[2016-12-13] MEDS ORDERED: Sodium Chloride 0.9% 500 ML ONE ×2 (19:56→20:30)
[2016-12-13] MEDS ORDERED: Albumin Human Soln 25% 25 GM in Premix 1 BAG IV ONE (20:24)
[2016-12-13] MEDS ORDERED: Sodium Chloride 0.9% 500 ML IV ONE ×2 (20:48→21:45)
[2016-12-13] MEDS ORDERED: Metoprolol TARTRATE Tab 50 MG TAB PO SCH ×3 (21:00)
[2016-12-13] MEDS: Metoprolol TARTRATE Tab 25 MG TAB PO SCH (21:58)
[2016-12-14] MEDS: D5-LR + 20mEq KCL 1,000 ML PRIMARY IV SCH ×5 (01:38→23:09)
[2016-12-14 04:39] LABS: BASOPHILS # (AUTO) 0.01 10*3/UL; BASOPHILS % (AUTO) 0.1 % (0-1); EOSINOPHILS # (AUTO) 0 10*3/UL; EOSINOPHILS % (AUTO) 0 % (0-8); HEMATOCRIT 48.2 % (42.0-52.0); LYMPHOCYTES # (AUTO) 1.15 10*3/uL; MEAN CORPUSCULAR HEMOGLOBIN 29.8 PG (27-31); MEAN CORPUSCULAR HGB CONC 33.2 g/dL (33-37); MEAN CORPUSCULAR VOLUME 89.8 FL (80-90); MEAN PLATELET VOLUME 10.7 FL (7.4-12.2); MONOCYTES # (AUTO) 1.83 10*3/UL (0.3-0.8); MONOCYTES % (AUTO) 17.9 % (5-15); NEUTROPHILS % (AUTO) 70.4 % (50-80); RED BLOOD COUNT 5.37 10^6/uL (4.70-6.10)
[2016-12-14 04:41] LABS: PLATELET MORPHOLOGY COMMENT NORMAL MORPHOLOGY (NORM); RBC MORPHOLOGY COMMENT NORMAL MORPHOLOGY (NORM); WBC MORPHOLOGY COMMENT NORMAL MORPHOLOGY (NORM)
[2016-12-14 04:51] LABS: CALCIUM 8.3 mg/dL (8.7-10.7); SERUM ALBUMIN 3.1 g/dL (3.5-4.8)
[2016-12-14] MEDS: Metoprolol TARTRATE Tab 25 MG TAB PO SCH (08:20)
[2016-12-14] MEDS ORDERED: Pantoprazole Inj 40 MG in Normal Saline Flush 10 ML IVP SCH ×2 (09:00)
--- NOTE | 2016-12-14 11:55 | PDOC(PROG) ---
Interval History: Patient is doing much better today his blood pressure stabilized as well as his heart rate. He has no complaints he is thirsty no chest pain nausea or vomiting Objective : Data - Labs CBC and BMP: 12/14/16 04:08 12/14/16 04:08 Labs - Last 24 Hours: Laboratory Results 12/13/16 12/13/16 12/14/16 Range/Units 16:08 17:15 00:01 WBC (4.8-10.8) 10^3/uL RBC (4.70-6.10) 10^6/uL Hgb (14.0-18.0) g/dL Hct (42.0-52.0) % MCV (80-90) FL MCH (27-31) PG MCHC (33-37) g/dL RDW Std Deviation (39-50) fL RDW Coeff of Mercedes (11.5-14.5) % Plt Count (140-350) 10*3/uL MPV (7.4-12.2) FL Immature Gran % (Auto) (0-5) % Neut % (Auto) (50-80) % Lymph % (Auto) (10-50) % [place] % (Auto) (5-15) % Eos % (Auto) (0-8) % Baso % (Auto) (0-1) % Immature Gran # (Auto) 10*3/UL Neut # (Auto) 10*3/UL Lymph # (Auto) 10*3/uL [place] # (Auto) (0.3-0.8) 10*3/UL Eos # (Auto) 10*3/UL Baso # (Auto) 10*3/UL WBC Morphology Comment (NORM) Plt Morphology Comment (NORM) RBC Morph Comment (NORM) ABG pH 7.23 L (7.35-7.45) ABG pCO2 53 H (34-38) MMHG ABG pO2 70 (65-75) MMHG ABG HCO3 22 (22-26) ABG Total CO2 24 (23-27) MMOL/L ABG O2 Saturation 90 (90-100) % ABG Base Excess -5 L (-2-2) MMOL/L Calvin Test N FiO2 100% vapo Sodium (135-145) meq/L Potassium (3.8-5.2) meq/L Chloride (98-112) meq/L Carbon Dioxide (23-33) meq/L Anion Gap (5-20) BUN (7-22) mg/dL Creatinine (0.70-1.50) mg/dL Estimated GFR (>60 ml/min/1.73m(2)) BUN/Creatinine Ratio (6-20) Glucose (78-110) mg/dL Calculated Osmolality (267-292) mOsm/kg Calcium (8.7-10.7) mg/dL Total Bilirubin (0.3-1.2) mg/dL AST (21-57) IU/L ALT (21-72) IU/L Alkaline Phosphatase (38-126) IU/L Troponin I < 0.012 0.018 (< 0.040) ng/mL Total Protein (6.1-8.0) g/dL Albumin (3.5-4.8) g/dL Globulin (2.50-4.10) g/dL Albumin/Globulin Ratio (1.3-2.0) mg/g /02/24 Range/Units 04:08 WBC 10.23 (4.8-10.8) 10^3/uL RBC 5.37 (4.70-6.10) 10^6/uL Hgb 16.0 (14.0-18.0) g/dL Hct 48.2 (42.0-52.0) % MCV 89.8 (80-90) FL MCH 29.8 (27-31) PG MCHC 33.2 (33-37) g/dL RDW Std Deviation 49.9 (39-50) fL RDW Coeff of Mercedes 15.2 H (11.5-14.5) % Plt Count 163 (140-350) 10*3/uL MPV 10.7 (7.4-12.2) FL Immature Gran % (Auto) 0.4 (0-5) % Neut % (Auto) 70.4 (50-80) % Lymph % (Auto) 11.2 (10-50) % [place] % (Auto) 17.9 H (5-15) % Eos % (Auto) 0 (0-8) % Baso % (Auto) 0.1 (0-1) % Immature Gran # (Auto) 0.04 10*3/UL Neut # (Auto) 7.20 10*3/UL Lymph # (Auto) 1.15 10*3/uL [place] # (Auto) 1.83 H (0.3-0.8) 10*3/UL Eos # (Auto) 0 10*3/UL Baso # (Auto) 0.01 10*3/UL WBC Morphology Comment Normal morphology (NORM) Plt Morphology Comment Normal morphology (NORM) RBC Morph Comment Normal morphology (NORM) ABG pH (7.35-7.45) ABG pCO2 (34-38) MMHG ABG pO2 (65-75) MMHG ABG HCO3 (22-26) ABG Total CO2 (23-27) MMOL/L ABG O2 Saturation (90-100) % ABG Base Excess (-2-2) MMOL/L Calvin Test FiO2 Sodium 141 (135-145) meq/L Potassium 4.5 (3.8-5.2) meq/L Chloride 106 (98-112) meq/L Carbon Dioxide 25 (23-33) meq/L Anion Gap 10 (5-20) BUN 20 (7-22) mg/dL Creatinine 0.8 (0.70-1.50) mg/dL Estimated GFR (>60 ml/min/1.73m(2)) BUN/Creatinine Ratio 25.00 H (6-20) Glucose 182 H (78-110) mg/dL Calculated Osmolality 299.0 H (267-292) mOsm/kg Calcium 8.3 L (8.7-10.7) mg/dL Total Bilirubin 1.4 H (0.3-1.2) mg/dL AST 54 (21-57) IU/L ALT 48 (21-72) IU/L Alkaline Phosphatase 36 L (38-126) IU/L Troponin I (< 0.040) ng/mL Total Protein 5.4 L (6.1-8.0) g/dL Albumin 3.1 L (3.5-4.8) g/dL Globulin 2.3 L (2.50-4.10) g/dL Albumin/Globulin Ratio 1.30 (1.3-2.0) mg/g Objective : Exam - General General Appearance: Cooperative - Respiratory Respiratory Exam: Clear to Auscultation - Bilaterally, Breathing Non Labored, Normal To Percussion - Cardiovascular Cardiovascular Exam: RRR, No Murmur, No Clicks, No Gallops - GI/Abdominal GI/Abdominal Exam: Normal Bowel Sounds, Non Tender, Soft - Extremities Extremities Exam: No Clubbing Present, No Edema Present - Neurological Neurological Exam: Alert, Oriented x 3, CN II-XII Intact, No Facial Droop, Speech Intact / Clear Assessment and Plan - Patient Problems (1) Bowel obstruction Current Visit: Yes Status: Acute Priority: High Diagnosis Date: 12/12/16 Comment: Status post hemicolectomy, cholecystectomy and liver biopsies patient is doing much better this morning postop his white count is normalized to 10, 000 last night we have some issues with the hypotension he was fluid resuscitated with normal saline and albumin also was given IV beta blockers for his heart rate in the 130s he was restarted his metoprolol at 12.5 by mouth twice a day he still nothing by mouth I will leave this up to the surgeon but he does have bowel sounds I think the patient is stable at present time and will transfer him out of the ICU most likely I believe the the fluids could be stopped at this present patient about positive for 5 L we will discuss the this with Dr. Nobles as well I discussed all this with family members patient and nursing on agreement (2) Cecum mass Current Visit: Yes Status: Acute Priority: High Diagnosis Date: 12/12/16 (3) History of coronary artery disease Current Visit: Yes Status: Chronic Comment: Continue with the beta elvie and EKGs were reviewed patient has a right bundle branch block and negative troponins Photo / Body Diagrams - Uploaded Photos Uploaded Photos:
[2016-12-14] MEDS ORDERED: Ertapenem Inj 1 GM in Sodium Chloride 0.9% 100 ML IV SCH ×2 (12:00)
--- NOTE | 2016-12-14 12:26 | PDOC(PROG) ---
Subjective Post Op Day: 1 Pain Management: Epidural SLEEVE WHEEL MAKER Whatley Catheter: Yes Flatus: No Diet: NPO Ambulating: Yes Date and Time of Service: 12/14/2016 12:15 PM Interval History: Patient had a rough awakening after surgery. Was combative. Took a while to recover from sedation. Was observed in the ICU overnight. Patient did have 4 bowel movements from the operating room to arriving at the floor. No bowel movements or flatus since. Has minimal nausea. Minimal abdominal pain. Decreased abdominal distention. Only complaint is that he is thirsty and that his mouth is dry. Has started up to get in a chair. He is sitting comfortably in a chair at this time. We discussed the surgical findings. The patient's was present. Overall he reports he feels pretty good. Objective : Data - Labs CBC and BMP: 12/14/16 04:08 12/14/16 04:08 Labs - Last 24 Hours: Laboratory Results 12/13/16 12/13/16 12/14/16 Range/Units 16:08 17:15 00:01 WBC (4.8-10.8) 10^3/uL RBC (4.70-6.10) 10^6/uL Hgb (14.0-18.0) g/dL Hct (42.0-52.0) % MCV (80-90) FL MCH (27-31) PG MCHC (33-37) g/dL RDW Std Deviation (39-50) fL RDW Coeff of Mercedes (11.5-14.5) % Plt Count (140-350) 10*3/uL MPV (7.4-12.2) FL Immature Gran % (Auto) (0-5) % Neut % (Auto) (50-80) % Lymph % (Auto) (10-50) % [place] % (Auto) (5-15) % Eos % (Auto) (0-8) % Baso % (Auto) (0-1) % Immature Gran # (Auto) 10*3/UL Neut # (Auto) 10*3/UL Lymph # (Auto) 10*3/uL [place] # (Auto) (0.3-0.8) 10*3/UL Eos # (Auto) 10*3/UL Baso # (Auto) 10*3/UL WBC Morphology Comment (NORM) Plt Morphology Comment (NORM) RBC Morph Comment (NORM) ABG pH 7.23 L (7.35-7.45) ABG pCO2 53 H (34-38) MMHG ABG pO2 70 (65-75) MMHG ABG HCO3 22 (22-26) ABG Total CO2 24 (23-27) MMOL/L ABG O2 Saturation 90 (90-100) % ABG Base Excess -5 L (-2-2) MMOL/L Calvin Test N FiO2 100% vapo Sodium (135-145) meq/L Potassium (3.8-5.2) meq/L Chloride (98-112) meq/L Carbon Dioxide (23-33) meq/L Anion Gap (5-20) BUN (7-22) mg/dL Creatinine (0.70-1.50) mg/dL Estimated GFR (>60 ml/min/1.73m(2)) BUN/Creatinine Ratio (6-20) Glucose (78-110) mg/dL Calculated Osmolality (267-292) mOsm/kg Calcium (8.7-10.7) mg/dL Total Bilirubin (0.3-1.2) mg/dL AST (21-57) IU/L ALT (21-72) IU/L Alkaline Phosphatase (38-126) IU/L Troponin I < 0.012 0.018 (< 0.040) ng/mL Total Protein (6.1-8.0) g/dL Albumin (3.5-4.8) g/dL Globulin (2.50-4.10) g/dL Albumin/Globulin Ratio (1.3-2.0) mg/g 12/14/17 Range/Units 04:08 WBC 10.23 (4.8-10.8) 10^3/uL RBC 5.37 (4.70-6.10) 10^6/uL Hgb 16.0 (14.0-18.0) g/dL Hct 48.2 (42.0-52.0) % MCV 89.8 (80-90) FL MCH 29.8 (27-31) PG MCHC 33.2 (33-37) g/dL RDW Std Deviation 49.9 (39-50) fL RDW Coeff of Mercedes 15.2 H (11.5-14.5) % Plt Count 163 (140-350) 10*3/uL MPV 10.7 (7.4-12.2) FL Immature Gran % (Auto) 0.4 (0-5) % Neut % (Auto) 70.4 (50-80) % Lymph % (Auto) 11.2 (10-50) % [place] % (Auto) 17.9 H (5-15) % Eos % (Auto) 0 (0-8) % Baso % (Auto) 0.1 (0-1) % Immature Gran # (Auto) 0.04 10*3/UL Neut # (Auto) 7.20 10*3/UL Lymph # (Auto) 1.15 10*3/uL [place] # (Auto) 1.83 H (0.3-0.8) 10*3/UL Eos # (Auto) 0 10*3/UL Baso # (Auto) 0.01 10*3/UL WBC Morphology Comment Normal morphology (NORM) Plt Morphology Comment Normal morphology (NORM) RBC Morph Comment Normal morphology (NORM) ABG pH (7.35-7.45) ABG pCO2 (34-38) MMHG ABG pO2 (65-75) MMHG ABG HCO3 (22-26) ABG Total CO2 (23-27) MMOL/L ABG O2 Saturation (90-100) % ABG Base Excess (-2-2) MMOL/L Calvin Test FiO2 Sodium 141 (135-145) meq/L Potassium 4.5 (3.8-5.2) meq/L Chloride 106 (98-112) meq/L Carbon Dioxide 25 (23-33) meq/L Anion Gap 10 (5-20) BUN 20 (7-22) mg/dL Creatinine 0.8 (0.70-1.50) mg/dL Estimated GFR (>60 ml/min/1.73m(2)) BUN/Creatinine Ratio 25.00 H (6-20) Glucose 182 H (78-110) mg/dL Calculated Osmolality 299.0 H (267-292) mOsm/kg Calcium 8.3 L (8.7-10.7) mg/dL Total Bilirubin 1.4 H (0.3-1.2) mg/dL AST 54 (21-57) IU/L ALT 48 (21-72) IU/L Alkaline Phosphatase 36 L (38-126) IU/L Troponin I (< 0.040) ng/mL Total Protein 5.4 L (6.1-8.0) g/dL Albumin 3.1 L (3.5-4.8) g/dL Globulin 2.3 L (2.50-4.10) g/dL Albumin/Globulin Ratio 1.30 (1.3-2.0) mg/g - Vital Signs Vital Signs and I&O: Vital Signs - Last Taken Temperature 98.8 F 12/14/16 09:00 Pulse Rate 84 12/14/16 12:00 Respiratory Rate 22 12/14/16 12:00 Blood Pressure 154/74 12/14/16 12:00 Pulse Ox 95 12/14/16 12:00 Intake and Output (24hr x 4 totals) 12/12/16 12/13/16 12/14/16 12/15/16 05:59 05:59 05:59 05:59 Intake Total 1000 6352 Output Total 950 795 Balance 50 5557 Objective : Exam - General General Appearance: No Acute Distress, Cooperative - Respiratory Respiratory Exam: Breathing Non Labored, Decreased Breath Sounds (At the bases.) - Cardiovascular Cardiovascular Exam: RRR, No Murmur - GI/Abdominal GI/Abdominal Exam: Non Distended, Soft, Hypoactive Bowel Sounds Additional GI/Abdominal Exam Details: Dressing is clean and dry and intact. Minimal incisional tenderness. Abdomen is soft. No peritoneal signs. - Rectal Rectal Exam: Deferred - Neurological Neurological Exam: Alert, Oriented x 3 - Psychiatric Psychiatric Exam: Normal Affect, Normal Mood Assessment and Plan - Patient Problems (1) Bowel obstruction Current Visit: Yes Status: Acute Priority: High Diagnosis Date: 12/12/16 Comment: Resolved postop. (2) Cecum mass Current Visit: Yes Status: Acute Priority: High Diagnosis Date: 12/12/16 Comment: Status post right hemicolectomy with ileocolostomy. Stable postoperative day 1. Status post liver biopsy. Pathology pending. Continue postoperative care. Urine output is improving. Patient can safely be transferred to the medical surgical floor and out of the ICU. Check a.m. labs. Start ambulation. Start small amounts of clear liquids. We will assess epidural and Whatley in the morning. I'm leaning towards leaving it until Sunday. We will discuss with the [facility]ON LINER in the morning. (3) Cholelithiasis Current Visit: Yes Status: Chronic Priority: Low Diagnosis Date: 12/12/16 Comment: Status post cholecystectomy.
[2016-12-14] MEDS ORDERED: SODIUM CHLORIDE 0.9% EPIDURAL SCH (12:41)
[2016-12-14] MEDS ORDERED: BUPIVACAINE EPIDURAL SCH (12:41)
[2016-12-14] MEDS ORDERED: ONDANSETRON 4 MG/2 ML VIAL IVP PRN (12:41)
--- NOTE | 2016-12-14 13:34 | CRNA.PROGR ---
Anesthesia Note Anesthesia Progress Note: Post OP Anesthesia Note Pt is awake alert and oriented, he is sitting up in a chair at the bed side. Pt denies any pain at this moment nor has he had any. The epidural infusion is running well and is still in correct placement. He is tolerating clear fluids at this time and urinary output has been adequate. Will continue to follow through duration of PCEA management. Current VSS. Vital Signs (Last 8 hours) Temp Pulse Pulse Pulse Resp Resp BP 12/14/16 12:00 84 22 154/74 12/14/16 11:00 83 81 21 15 165/82 12/14/16 10:00 85 22 156/76 12/14/16 09:57 12/14/16 09:00 98.8 F 82 21 150/73 12/14/16 08:00 85 16 150/77 12/14/16 07:00 98.8 F 89 84 86 16 18 149/71 12/14/16 06:49 12/14/16 06:00 98.8 F 90 22 150/79 Pulse Ox 12/14/16 12:00 95 12/14/16 11:00 92 12/14/16 10:00 93 12/14/16 09:57 96 12/14/16 09:00 96 12/14/16 08:00 95 12/14/16 07:00 96 12/14/16 06:49 95 12/14/16 06:00 97 Intake and Output (24hr x 4 totals) 12/12/16 12/13/16 12/14/16 12/15/16 05:59 05:59 05:59 05:59 Intake Total 1999 6352 Output Total 950 795 Balance 1050 5557 Weight Obtain Weight Start: 12/12/16 05: 00 Freq: DAILY 0500 Status: Active Document 12/12/16 05:00 [id number] (Rec: 12/12/16 20:53 [id number]) Document 12/13/16 08:04 [id number] (Rec: 12/13/16 08:04 [id number]) Obtain Weight Start: 12/13/16 17: 40 Freq: QAM Status: Inactive Document 12/14/16 07:00 [id number] (Rec: 12/14/16 07:23 [id number])
[2016-12-14] MEDS: Ertapenem Inj 1 GM in Sodium Chloride 0.9% 100 ML IV SCH (15:45)
[2016-12-14] MEDS ORDERED: Metoprolol TARTRATE Tab 25 MG TAB PO SCH (21:00)
[2016-12-15] MEDS: MORPHINE SULFATE 2 MG/1 ML IVP PRN ×4 (03:07→09:12)
[2016-12-15] MEDS: NORMAL SALINE 10 ML SYRINGE FLUSH IVP PRN ×3 (03:08→10:22)
[2016-12-15 05:35] LABS: HEMATOCRIT 46.4 % (42.0-52.0); HEMOGLOBIN 15.1 g/dL (14.0-18.0); MEAN CORPUSCULAR HEMOGLOBIN 29.2 PG (27-31); MEAN CORPUSCULAR HGB CONC 32.5 g/dL (33-37); MEAN CORPUSCULAR VOLUME 89.6 FL (80-90); MEAN PLATELET VOLUME 10.8 FL (7.4-12.2); RED BLOOD COUNT 5.18 10^6/uL (4.70-6.10)
[2016-12-15 05:43] LABS: BUN/CREATININE RATIO 28.57 (6-20); CALCIUM 8.4 mg/dL (8.7-10.7); SERUM ALBUMIN 2.9 g/dL (3.5-4.8)
[2016-12-15] MEDS: D5-LR + 20mEq KCL 1,000 ML PRIMARY IV SCH (06:06)
[2016-12-15 06:23] LABS: PLATELET MORPHOLOGY COMMENT NORMAL MORPHOLOGY (NORM); RBC MORPHOLOGY COMMENT NORMAL MORPHOLOGY (NORM); WBC MORPHOLOGY COMMENT NORMAL MORPHOLOGY (NORM)
[2016-12-15 06:24] LABS: BAND NEUTROPHILS % 0 % (0-10); BASOPHILS % (MANUAL) 0 % (0-1); EOSINOPHILS % (MANUAL) 0 % (0-8); LYMPHOCYTES % (MANUAL) 15 % (10-50); MONOCYTES % (MANUAL) 5 % (0-12); NEUTROPHILS % (MANUAL) 80 % (50-80)
[2016-12-15] MEDS ORDERED: MORPHINE SULFATE 2 MG/1 ML IVP PRN (09:05)
[2016-12-15] MEDS: Metoprolol TARTRATE Tab 25 MG TAB PO SCH ×2 (09:12→20:52)
[2016-12-15] MEDS: Pantoprazole Inj 40 MG in Normal Saline Flush 10 ML IVP SCH (09:12)
[2016-12-15] MEDS: Sodium Chloride 0.9% 1,000 ML IV SCH ×2 (09:26→20:53)
[2016-12-15] MEDS ORDERED: MORPHINE SULFATE 2 MG/1 ML IVP ONE (10:45)
[2016-12-15] MEDS ORDERED: MORPHINE SULFATE/PF PCA 30 MG/30 ML IV PRN ×3 (11:29→13:14)
--- NOTE | 2016-12-15 11:43 | PDOC(PROG) ---
Interval History: Patient had the more BMs last evening he said his pain is a little worse but getting better with the IV morphine otherwise has no complaints no no nausea no vomiting no shortness of breath he is tolerating his 4 ounces of clear liquids Objective : Data - Labs CBC and BMP: 12/15/16 05:26 12/15/16 05:26 Labs - Last 24 Hours: Laboratory Results 12/15/16 Range/Units 05:26 WBC 12.47 H (4.8-10.8) 10^3/uL RBC 5.18 (4.70-6.10) 10^6/uL Hgb 15.1 (14.0-18.0) g/dL Hct 46.4 (42.0-52.0) % MCV 89.6 (80-90) FL MCH 29.2 (27-31) PG MCHC 32.5 L (33-37) g/dL RDW Std Deviation 49.1 (39-50) fL RDW Coeff of Mercedes 15.0 H (11.5-14.5) % Plt Count 151 (140-350) 10*3/uL MPV 10.8 (7.4-12.2) FL Neutrophils % (Manual) 80 (50-80) % Band Neutrophils % 0 (0-10) % Lymphocytes % (Manual) 15 (10-50) % Monocytes % (Manual) 5 (0-12) % Eosinophils % (Manual) 0 (0-8) % Basophils % (Manual) 0 (0-1) % Metamyelocytes % Not Reportable Myelocytes % Not Reportable Promyelocytes % Not Reportable Blast Cells Not Reportable WBC Morphology Comment Normal morphology (NORM) Plt Morphology Comment Normal morphology (NORM) RBC Morph Comment Normal morphology (NORM) Sodium 139 (135-145) meq/L Potassium 4.5 (3.8-5.2) meq/L Chloride 107 (98-112) meq/L Carbon Dioxide 26 (23-33) meq/L Anion Gap 6 (5-20) BUN 20 (7-22) mg/dL Creatinine 0.7 (0.70-1.50) mg/dL Estimated GFR (>60 ml/min/1.73m(2)) BUN/Creatinine Ratio 28.57 H (6-20) Glucose 158 H (78-110) mg/dL Calculated Osmolality 293.0 H (267-292) mOsm/kg Calcium 8.4 L (8.7-10.7) mg/dL Total Bilirubin 0.9 (0.3-1.2) mg/dL AST 39 (21-57) IU/L ALT 49 (21-72) IU/L Alkaline Phosphatase 42 (38-126) IU/L Total Protein 5.4 L (6.1-8.0) g/dL Albumin 2.9 L (3.5-4.8) g/dL Globulin 2.5 (2.50-4.10) g/dL Albumin/Globulin Ratio 1.10 L (1.3-2.0) mg/g Objective : Exam - General General Appearance: Cooperative - Head Head Exam: Normocephalic, Atraumatic - Respiratory Respiratory Exam: Clear to Auscultation - Bilaterally, Breathing Non Labored, Normal To Percussion, Normal to Percussion and Palpation - Cardiovascular Cardiovascular Exam: RRR, No Murmur, No Clicks, No Gallops - GI/Abdominal GI/Abdominal Exam: Soft - Extremities Extremities Exam: No Clubbing Present, No Edema Present - Neurological Neurological Exam: Alert, Oriented x 3, CN II-XII Intact Assessment and Plan - Patient Problems (1) Bowel obstruction Current Visit: Yes Status: Acute Priority: High Diagnosis Date: 12/12/16 Comment: Secondary to possible colon CA postop day #[address] Nobles in regards to diet and pain control (2) Cecum mass Current Visit: Yes Status: Acute Priority: High Diagnosis Date: 12/12/16 (3) History of coronary artery disease Current Visit: Yes Status: Chronic Comment: Stable at present time I will increase his beta elvie to 25 twice a day (4) Diabetes Current Visit: Yes Status: Acute Comment: Stop D5 lactated Ringer's sugars been elevated will transition to normal saline 75 (5) Hypertension Current Visit: Yes Status: Chronic Comment: Adhesive been in the 200 range I will add the lisinopril 40 at this point to his regimen Photo / Body Diagrams - Uploaded Photos Uploaded Photos:
[2016-12-15] MEDS ORDERED: Ertapenem Inj 1 GM in Sodium Chloride 0.9% 100 ML IV SCH (12:00)
--- NOTE | 2016-12-15 12:44 | DI ---
KUB and UPRIGHT ABDOMEN, 12/15/2016 9:33 AM: Clinical History: Post operative abdominal pain. Previous Exam: None at this facility. There is a small right pleural effusion with right middle lobe and right lower lobe atelectasis. Ther e is left lower lobe atelectasis. The patient is status post right colectomy. There are mildly dilate d loops of small bowel, but no significant air-fluid levels are present. Gas is present throughout th e descending colon to the rectum. This pattern is felt to represent a postoperative ileus. There is n o free air or fluid. There are no abnormal radiodensities. A catheter is present in the bladder. Reading: Status post right kidney colectomy. There are dilated loops of small bowel without significant air-fl uid levels and there is gastro-the remainder of the colon. This is felt to represent a postoperative ileus.
[2016-12-15] MEDS ORDERED: NALOXONE 0.4 MG/1 ML VIAL IVP PRN (13:23)
--- NOTE | 2016-12-15 15:03 | PDOC(PROG) ---
Subjective Post Op Day: 2 Pain Management: Peripheral GEOSPATIAL ENGINEER Whatley Catheter: Yes Flatus: Yes Diet: Clear Liquids Ambulating: Yes Date and Time of Service: 12/15/2016 1430 Interval History: The patient had a rough night. He got confusedand combative. He had a bowel movement and tried to get out of bed. Epidural catheter was compromised and needed to be removed. Had some problems initially with pain control with IV morphine. He was switched to a GEOSPATIAL ENGINEER and is much more comfortable now. He denies nausea or vomiting. He is really not hungry. His passed small amounts of gas. He had a bowel movement last night. He has no specific complaints or problems at this time. He has ambulated. Objective : Data - Labs CBC and BMP: 12/15/16 05:26 12/15/16 05:26 Labs - Last 24 Hours: Laboratory Results 12/15/16 Range/Units 05:26 WBC 12.47 H (4.8-10.8) 10^3/uL RBC 5.18 (4.70-6.10) 10^6/uL Hgb 15.1 (14.0-18.0) g/dL Hct 46.4 (42.0-52.0) % MCV 89.6 (80-90) FL MCH 29.2 (27-31) PG MCHC 32.5 L (33-37) g/dL RDW Std Deviation 49.1 (39-50) fL RDW Coeff of Mercedes 15.0 H (11.5-14.5) % Plt Count 151 (140-350) 10*3/uL MPV 10.8 (7.4-12.2) FL Neutrophils % (Manual) 80 (50-80) % Band Neutrophils % 0 (0-10) % Lymphocytes % (Manual) 15 (10-50) % Monocytes % (Manual) 5 (0-12) % Eosinophils % (Manual) 0 (0-8) % Basophils % (Manual) 0 (0-1) % Metamyelocytes % Not Reportable Myelocytes % Not Reportable Promyelocytes % Not Reportable Blast Cells Not Reportable WBC Morphology Comment Normal morphology (NORM) Plt Morphology Comment Normal morphology (NORM) RBC Morph Comment Normal morphology (NORM) Sodium 139 (135-145) meq/L Potassium 4.5 (3.8-5.2) meq/L Chloride 107 (98-112) meq/L Carbon Dioxide 26 (23-33) meq/L Anion Gap 6 (5-20) BUN 20 (7-22) mg/dL Creatinine 0.7 (0.70-1.50) mg/dL Estimated GFR (>60 ml/min/1.73m(2)) BUN/Creatinine Ratio 28.57 H (6-20) Glucose 158 H (78-110) mg/dL Calculated Osmolality 293.0 H (267-292) mOsm/kg Calcium 8.4 L (8.7-10.7) mg/dL Total Bilirubin 0.9 (0.3-1.2) mg/dL AST 39 (21-57) IU/L ALT 49 (21-72) IU/L Alkaline Phosphatase 42 (38-126) IU/L Total Protein 5.4 L (6.1-8.0) g/dL Albumin 2.9 L (3.5-4.8) g/dL Globulin 2.5 (2.50-4.10) g/dL Albumin/Globulin Ratio 1.10 L (1.3-2.0) mg/g - Imaging Imaging Details: Flat and upright abdominal films show atelectasis with a small pleural effusion. He says some dilated small bowel. There is gas throughout the colon in small amounts. No evidence of free air. - Vital Signs Vital Signs and I&O: Vital Signs - Last Taken Temperature 97 F 12/15/16 13:27 Pulse Rate 73 12/15/16 13:27 Respiratory Rate 16 12/15/16 13:27 Blood Pressure 173/98 12/15/16 13:27 Pulse Ox 99 12/15/16 13:27 Intake and Output (24hr x 4 totals) 12/13/16 12/14/16 12/15/16 12/16/16 05:59 05:59 05:59 05:59 Intake Total 1000 6353 2315 Output Total 950 793 650 400 Balance 50 7765 2641 -400 Objective : Exam - General General Appearance: No Acute Distress, Cooperative - Respiratory Respiratory Exam: Decreased Breath Sounds (In the bases.), Coarse Breath Sounds - Cardiovascular Cardiovascular Exam: RRR, No Murmur - GI/Abdominal GI/Abdominal Exam: Soft, Hypoactive Bowel Sounds Additional GI/Abdominal Exam Details: Dressing is clean and dry and intact. Patient has incisional tenderness. Slightly bloated. No acute findings. - Neurological Neurological Exam: Alert, Oriented x 3 - Psychiatric Psychiatric Exam: Normal Affect, Normal Mood Assessment and Plan - Patient Problems (1) Bowel obstruction Current Visit: Yes Status: Acute Priority: High Diagnosis Date: 12/12/16 Comment: Status post right hemicolectomy to remove the blockage. (2) Cecum mass Current Visit: Yes Status: Acute Priority: High Diagnosis Date: 12/12/16 Comment: Status post right colectomy. Await return of GI function. Continue postoperative care. Seems to be doing well. He is fluid long. We will give him some Lasix. We'll start some Reglan to see if we can resolve his mild ileus. He needs more aggressive pulmonary toilet. (3) Cholelithiasis Current Visit: Yes Status: Chronic Priority: Low Diagnosis Date: 12/12/16 Comment: Status post cholecystectomy.
[2016-12-15] MEDS ORDERED: FUROSEMIDE 10 MG/1 ML - 2 ML VIAL IVP ONE (15:10)
[2016-12-15] MEDS: D5-1/2NS + 20mEq KCL 1,000 ML PRIMARY IV SCH (15:37)
[2016-12-15] MEDS: Metoclopramide Inj 10 MG/2 ML VIAL IVP SCH ×2 (15:37→20:52)
[2016-12-15] MEDS: Ertapenem Inj 1 GM in Sodium Chloride 0.9% 100 ML IV SCH (15:38)
[2016-12-16] MEDS: Metoclopramide Inj 10 MG/2 ML VIAL IVP SCH ×4 (04:00→20:32)
[2016-12-16] MEDS: D5-1/2NS + 20mEq KCL 1,000 ML PRIMARY IV SCH ×2 (04:31→16:08)
[2016-12-16 05:51] LABS: BASOPHILS # (AUTO) 0.03 10*3/UL; BASOPHILS % (AUTO) 0.2 % (0-1); EOSINOPHILS # (AUTO) 0.11 10*3/UL; EOSINOPHILS % (AUTO) 0.8 % (0-8); HEMATOCRIT 49.4 % (42.0-52.0); HEMOGLOBIN 16.1 g/dL (14.0-18.0); LYMPHOCYTES # (AUTO) 1.92 10*3/uL; MEAN CORPUSCULAR HGB CONC 32.6 g/dL (33-37); MEAN PLATELET VOLUME 10.8 FL (7.4-12.2); MONOCYTES # (AUTO) 2.06 10*3/UL (0.3-0.8); MONOCYTES % (AUTO) 14.6 % (5-15); NEUTROPHILS # (AUTO) 9.95 10*3/UL; NEUTROPHILS % (AUTO) 70.6 % (50-80); RED BLOOD COUNT 5.55 10^6/uL (4.70-6.10)
[2016-12-16 05:53] LABS: PLATELET MORPHOLOGY COMMENT NORMAL MORPHOLOGY (NORM); RBC MORPHOLOGY COMMENT NORMAL MORPHOLOGY (NORM); WBC MORPHOLOGY COMMENT NORMAL MORPHOLOGY (NORM)
[2016-12-16 06:09] LABS: BUN/CREATININE RATIO 27.14 (6-20); CALCIUM 8.5 mg/dL (8.7-10.7)
[2016-12-16] MEDS ORDERED: LISINOPRIL 20 MG TABLET PO SCH (09:00)
[2016-12-16] MEDS: LISINOPRIL 20 MG TABLET PO SCH ×2 (09:31→10:37)
[2016-12-16] MEDS: Pantoprazole Inj 40 MG in Normal Saline Flush 10 ML IVP SCH (09:32)
[2016-12-16] MEDS: Metoprolol TARTRATE Tab 25 MG TAB PO SCH ×2 (09:32→20:30)
--- NOTE | 2016-12-16 11:42 | PDOC(PROG) ---
Interval History: Patient had a good night sleep feels much better today. He does not want the lisinopril since he gave him bad dreams in the past I told him that was okay we will give him Norvasc 10 mg his pain is controlled on FREIGHT REPRESENTATIVE pump she did take a short walk down the hallway denies chest pain nausea or vomiting Objective : Data - Labs CBC and BMP: 12/16/16 05:46 12/16/16 05:46 Labs - Last 24 Hours: Laboratory Results 12/16/16 Range/Units 05:46 WBC 14.10 H (4.8-10.8) 10^3/uL RBC 5.55 (4.70-6.10) 10^6/uL Hgb 16.1 (14.0-18.0) g/dL Hct 49.4 (42.0-52.0) % MCV 89.0 (80-90) FL MCH 29.0 (27-31) PG MCHC 32.6 L (33-37) g/dL RDW Std Deviation 47.6 (39-50) fL RDW Coeff of Mercedes 14.7 H (11.5-14.5) % Plt Count 181 (140-350) 10*3/uL MPV 10.8 (7.4-12.2) FL Immature Gran % (Auto) 0.2 (0-5) % Neut % (Auto) 70.6 (50-80) % Lymph % (Auto) 13.6 (10-50) % [place] % (Auto) 14.6 (5-15) % Eos % (Auto) 0.8 (0-8) % Baso % (Auto) 0.2 (0-1) % Immature Gran # (Auto) 0.03 10*3/UL Neut # (Auto) 9.95 10*3/UL Lymph # (Auto) 1.92 10*3/uL [place] # (Auto) 2.06 H (0.3-0.8) 10*3/UL Eos # (Auto) 0.11 10*3/UL Baso # (Auto) 0.03 10*3/UL WBC Morphology Comment Normal morphology (NORM) Plt Morphology Comment Normal morphology (NORM) RBC Morph Comment Normal morphology (NORM) Sodium 138 (135-145) meq/L Potassium 4.3 (3.8-5.2) meq/L Chloride 104 (98-112) meq/L Carbon Dioxide 27 (23-33) meq/L Anion Gap 7 (5-20) BUN 19 (7-22) mg/dL Creatinine 0.7 (0.70-1.50) mg/dL Estimated GFR (>60 ml/min/1.73m(2)) BUN/Creatinine Ratio 27.14 H (6-20) Glucose 119 H (78-110) mg/dL Calculated Osmolality 288.0 (267-292) mOsm/kg Calcium 8.5 L (8.7-10.7) mg/dL Objective : Exam - General General Appearance: Cooperative - Respiratory Respiratory Exam: Clear to Auscultation - Bilaterally, Breathing Non Labored, Normal To Percussion - Cardiovascular Cardiovascular Exam: RRR, No Murmur, No Clicks, No Gallops - GI/Abdominal GI/Abdominal Exam: Soft - Extremities Extremities Exam: No Clubbing Present, No Edema Present, No Cyanosis Present - Neurological Neurological Exam: Alert, Oriented x 3 Assessment and Plan - Patient Problems (1) Bowel obstruction Current Visit: Yes Status: Acute Priority: High Diagnosis Date: 12/12/16 Comment: Status post hemicolectomy secondary to the most likely and colon CA pathology is pending. I'm going to stop his normal saline at 75 an hour I had stopped the D5 with potassium since his sugars were climbing. He had both on overnight. The normal saline as stopped now (2) Cecum mass Current Visit: Yes Status: Acute Priority: High Diagnosis Date: 12/12/16 Comment: The status post hemicolectomy deferred. Antibiotics, Fluids and pain management defer to Dr. Nobles (3) History of coronary artery disease Current Visit: Yes Status: Chronic Comment: Continue beta elvie 25 mg by mouth twice a day of metoprolol (4) Diabetes Current Visit: Yes Status: Acute Comment: His last sugar is 133 would recommend treating sugars above 180 and holding metformin check hemoglobin A1c (5) Hypertension Current Visit: Yes Status: Chronic Comment: Patient does not want to take lisinopril I talked to him and I we will start Norvasc 10 mg daily at home patient is on nifedipine ER and losartan. Recent blood pressure 183/91 Photo / Body Diagrams - Uploaded Photos Uploaded Photos:
--- NOTE | 2016-12-16 13:55 | PDOC(PROG) ---
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 Interval History: Had a much better night. Tolerating some clear liquids. No further flatus or bowel movements. He is ambulating. His pain is well controlled. He and his are worried about his blood pressure. I discussed this with Dr. Marquez. He will make some adjustments. Objective : Data - Labs CBC and BMP: 12/16/16 05:46 12/16/16 05:46 Labs - Last 24 Hours: Laboratory Results 12/16/16 Range/Units 05:46 WBC 14.10 H (4.8-10.8) 10^3/uL RBC 5.55 (4.70-6.10) 10^6/uL Hgb 16.1 (14.0-18.0) g/dL Hct 49.4 (42.0-52.0) % MCV 89.0 (80-90) FL MCH 29.0 (27-31) PG MCHC 32.6 L (33-37) g/dL RDW Std Deviation 47.6 (39-50) fL RDW Coeff of Mercedes 14.7 H (11.5-14.5) % Plt Count 181 (140-350) 10*3/uL MPV 10.8 (7.4-12.2) FL Immature Gran % (Auto) 0.2 (0-5) % Neut % (Auto) 70.6 (50-80) % Lymph % (Auto) 13.6 (10-50) % [place] % (Auto) 14.6 (5-15) % Eos % (Auto) 0.8 (0-8) % Baso % (Auto) 0.2 (0-1) % Immature Gran # (Auto) 0.03 10*3/UL Neut # (Auto) 9.95 10*3/UL Lymph # (Auto) 1.92 10*3/uL [place] # (Auto) 2.06 H (0.3-0.8) 10*3/UL Eos # (Auto) 0.11 10*3/UL Baso # (Auto) 0.03 10*3/UL WBC Morphology Comment Normal morphology (NORM) Plt Morphology Comment Normal morphology (NORM) RBC Morph Comment Normal morphology (NORM) Sodium 138 (135-145) meq/L Potassium 4.3 (3.8-5.2) meq/L Chloride 104 (98-112) meq/L Carbon Dioxide 27 (23-33) meq/L Anion Gap 7 (5-20) BUN 19 (7-22) mg/dL Creatinine 0.7 (0.70-1.50) mg/dL Estimated GFR (>60 ml/min/1.73m(2)) BUN/Creatinine Ratio 27.14 H (6-20) Glucose 119 H (78-110) mg/dL Calculated Osmolality 288.0 (267-292) mOsm/kg Calcium 8.5 L (8.7-10.7) mg/dL - Vital Signs Vital Signs and I&O: Vital Signs - Last Taken Temperature 98 F 12/16/16 11:40 Pulse Rate 68 12/16/16 11:40 Respiratory Rate 14 12/16/16 11:40 Blood Pressure 183/91 12/16/16 11:40 Pulse Ox 94 12/16/16 11:40 Intake and Output (24hr x 4 totals) 12/14/16 12/15/16 12/16/16 12/17/16 05:59 05:59 05:59 05:59 Intake Total 6352 2315 3087 90 Output Total 642 487 0016 275 Balance 8229 0417 687 -185 Objective : Exam - General General Appearance: No Acute Distress, Cooperative - Respiratory Respiratory Exam: Clear to Auscultation - Bilaterally, Breathing Non Labored - Cardiovascular Cardiovascular Exam: RRR, No Murmur - GI/Abdominal GI/Abdominal Exam: Soft, Diminished Bowel Sounds Additional GI/Abdominal Exam Details: Bandage was removed. Incision looks good. Abdomen is soft. Has better bowel tones but they are still not normal. Incisional tenderness only. - Neurological Neurological Exam: Alert, Oriented x 3 - Psychiatric Psychiatric Exam: Normal Affect, Normal Mood Assessment and Plan - Patient Problems (1) Bowel obstruction Current Visit: Yes Status: Acute Priority: High Diagnosis Date: 12/12/16 Comment: Surgically corrected. (2) Cecum mass Current Visit: Yes Status: Acute Priority: High Diagnosis Date: 12/12/16 Comment: Status post right hemicolectomy. Fairly typical postoperative course. His bowel function is returning but is not back to normal. Dr. Far's will manage his blood pressure. We will increase him to clear liquids as tolerated. Whatley catheter will be discontinued and his usual medications restarted. Patient will be allowed to shower. We'll stop his antibiotics and check his labs in the morning. (3) Cholelithiasis Current Visit: Yes Status: Chronic Priority: Low Diagnosis Date: 12/12/16 Comment: Status post cholecystectomy.
[2016-12-16] MEDS: FINASTERIDE 5 MG TABLET PO SCH (14:46)
[2016-12-16] MEDS: TAMSULOSIN 0.4 MG CAPSULE PO SCH (14:46)
[2016-12-16] MEDS ORDERED: CloNIDine Tab 0.1 MG TABLET PO ONE (15:36)
[2016-12-16] MEDS: MORPHINE SULFATE/PF PCA 30 MG/30 ML IV SCH (19:26)
[2016-12-16] MEDS: LOSARTAN 50 MG TABLET PO SCH (20:30)
[2016-12-16] MEDS: NORMAL SALINE 10 ML SYRINGE FLUSH IVP PRN (20:32)
[2016-12-17] MEDS: D5-1/2NS + 20mEq KCL 1,000 ML PRIMARY IV SCH ×2 (04:13→14:00)
[2016-12-17] MEDS: Metoclopramide Inj 10 MG/2 ML VIAL IVP SCH ×4 (04:14→20:33)
[2016-12-17 06:10] LABS: BASOPHILS # (AUTO) 0.03 10*3/UL; BASOPHILS % (AUTO) 0.2 % (0-1); EOSINOPHILS # (AUTO) 0.31 10*3/UL; EOSINOPHILS % (AUTO) 2.5 % (0-8); HEMATOCRIT 47.7 % (42.0-52.0); HEMOGLOBIN 15.7 g/dL (14.0-18.0); LYMPHOCYTES # (AUTO) 1.84 10*3/uL; MEAN CORPUSCULAR HEMOGLOBIN 28.9 PG (27-31); MEAN CORPUSCULAR HGB CONC 32.9 g/dL (33-37); MEAN CORPUSCULAR VOLUME 87.7 FL (80-90); MEAN PLATELET VOLUME 10.1 FL (7.4-12.2); MONOCYTES # (AUTO) 1.62 10*3/UL (0.3-0.8); MONOCYTES % (AUTO) 12.9 % (5-15); NEUTROPHILS # (AUTO) 8.69 10*3/UL; NEUTROPHILS % (AUTO) 69.2 % (50-80); RED BLOOD COUNT 5.44 10^6/uL (4.70-6.10)
[2016-12-17 06:12] LABS: PLATELET MORPHOLOGY COMMENT NORMAL MORPHOLOGY (NORM); RBC MORPHOLOGY COMMENT NORMAL MORPHOLOGY (NORM); WBC MORPHOLOGY COMMENT NORMAL MORPHOLOGY (NORM)
[2016-12-17 06:20] LABS: CALCIUM 7.9 mg/dL (8.7-10.7)
[2016-12-17 06:22] LABS: HEMOGLOBIN A1C 7.15 % (4.2-6.0)
[2016-12-17] MEDS: Pantoprazole Inj 40 MG in Normal Saline Flush 10 ML IVP SCH (09:13)
[2016-12-17] MEDS: LOSARTAN 50 MG TABLET PO SCH (09:14)
[2016-12-17] MEDS: Metoprolol TARTRATE Tab 25 MG TAB PO SCH (09:15)
[2016-12-17] MEDS: TAMSULOSIN 0.4 MG CAPSULE PO SCH (09:15)
[2016-12-17] MEDS: FINASTERIDE 5 MG TABLET PO SCH (09:15)
[2016-12-17] MEDS ORDERED: FUROSEMIDE 10 MG/1 ML - 2 ML VIAL IVP ONE (12:10)
--- NOTE | 2016-12-17 12:26 | PDOC(PROG) ---
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 Tolerating clear liquids. No nausea or vomiting. Passed a little gas. No further bowel movements. Pain is well controlled. Has now voided since his catheter has been removed. He is ambulating several times a day. He is working on his incentive spirometer. Objective : Data - Labs CBC and BMP: 12/17/16 06:01 12/17/16 06:01 Labs - Last 24 Hours: Laboratory Results 12/17/16 Range/Units 06:01 WBC 12.55 H (4.8-10.8) 10^3/uL RBC 5.44 (4.70-6.10) 10^6/uL Hgb 15.7 (14.0-18.0) g/dL Hct 47.7 (42.0-52.0) % MCV 87.7 (80-90) FL MCH 28.9 (27-31) PG MCHC 32.9 L (33-37) g/dL RDW Std Deviation 44.9 (39-50) fL RDW Coeff of Mercedes 14.1 (11.5-14.5) % Plt Count 195 (140-350) 10*3/uL MPV 10.1 (7.4-12.2) FL Immature Gran % (Auto) 0.5 (0-5) % Neut % (Auto) 69.2 (50-80) % Lymph % (Auto) 14.7 (10-50) % [place] % (Auto) 12.9 (5-15) % Eos % (Auto) 2.5 (0-8) % Baso % (Auto) 0.2 (0-1) % Immature Gran # (Auto) 0.06 10*3/UL Neut # (Auto) 8.69 10*3/UL Lymph # (Auto) 1.84 10*3/uL [place] # (Auto) 1.62 H (0.3-0.8) 10*3/UL Eos # (Auto) 0.31 10*3/UL Baso # (Auto) 0.03 10*3/UL WBC Morphology Comment Normal morphology (NORM) Plt Morphology Comment Normal morphology (NORM) RBC Morph Comment Normal morphology (NORM) Sodium 134 L (135-145) meq/L Potassium 4.0 (3.8-5.2) meq/L Chloride 99 (98-112) meq/L Carbon Dioxide 30 (23-33) meq/L Anion Gap 5 (5-20) BUN 14 (7-22) mg/dL Creatinine 0.7 (0.70-1.50) mg/dL Estimated GFR (>60 ml/min/1.73m(2)) BUN/Creatinine Ratio 20.00 (6-20) Glucose 140 H (78-110) mg/dL Mean Blood Glucose 152.095 mg/dL Hemoglobin A1c 7.15 H (4.2-6.0) % Calculated Osmolality 280.0 (267-292) mOsm/kg Calcium 7.9 L (8.7-10.7) mg/dL - Imaging Imaging Details: Chest x-ray shows some atelectasis. No pneumonia. Possible small effusion. Abdominal series shows some dilated air-filled small bowel. Some stool and gas can be seen at the anastomosis. The colon is relatively decompressed. Findings consistent with an ileus. - Vital Signs Vital Signs and I&O: Vital Signs - Last Taken Temperature 97.2 F 12/17/16 09:00 Pulse Rate 90 12/17/16 09:00 Respiratory Rate 14 12/17/16 09:00 Blood Pressure 156/69 12/17/16 09:00 Pulse Ox 90 12/17/16 09:00 Intake and Output (24hr x 4 totals) 12/15/16 12/16/16 12/17/16 12/18/16 05:59 05:59 05:59 05:59 Intake Total 2315 3103 3659 490 Output Total 650 2400 3075 650 Balance 1665 703 584 -160 Objective : Exam - General General Appearance: No Acute Distress, Cooperative - Respiratory Respiratory Exam: Breathing Non Labored, Decreased Breath Sounds (Right greater than left.), Rales (In the bases.) - Cardiovascular Cardiovascular Exam: RRR, No Murmur - GI/Abdominal GI/Abdominal Exam: Normal Bowel Sounds (Bowel sounds much more normal.), Soft Additional GI/Abdominal Exam Details: Incision looks good. Abdomen is full. Diffuse mild tenderness predominantly at the incision. No peritoneal signs. Bowel movements much more normal. - Neurological Neurological Exam: Alert, Oriented x 3 - Psychiatric Psychiatric Exam: Normal Affect, Normal Mood Assessment and Plan - Patient Problems (1) Bowel obstruction Current Visit: Yes Status: Acute Priority: High Diagnosis Date: 12/12/16 Comment: Surgically corrected. (2) Cecum mass Current Visit: Yes Status: Acute Priority: High Diagnosis Date: 12/12/16 Comment: Patient is status post right hemicolectomy. I believe his ileus is resolving. I will check an abdominal series today. I would like to advance his diet but will check an x-ray first. He is fluid long and his weight is up. I will check a chest x-ray as well and start gentle diuresis. I will saline lock his maintenance IV. I discussed with the nursing staff the need to be aggressive with his pulmonary toilet. He needs to ambulate frequently. I will also started DuoNeb for his decreased breath sounds and atelectasis. X-ray shows persisting ileus. Not ready to advance his diet at this time. Continue as at present. (3) Cholelithiasis Current Visit: Yes Status: Chronic Priority: Low Diagnosis Date: 12/12/16 Comment: Status post cholecystectomy.
--- NOTE | 2016-12-17 13:22 | PDOC(PROG) ---
Interval History: pain is controlled ,ambulating ,uneventful night, denies chest pain/nausea/ vomiting Objective : Data - Labs CBC and BMP: 12/17/16 06:01 12/17/16 06:01 Labs - Last 24 Hours: Laboratory Results 12/17/16 Range/Units 06:01 WBC 12.55 H (4.8-10.8) 10^3/uL RBC 5.44 (4.70-6.10) 10^6/uL Hgb 15.7 (14.0-18.0) g/dL Hct 47.7 (42.0-52.0) % MCV 87.7 (80-90) FL MCH 28.9 (27-31) PG MCHC 32.9 L (33-37) g/dL RDW Std Deviation 44.9 (39-50) fL RDW Coeff of Mercedes 14.1 (11.5-14.5) % Plt Count 195 (140-350) 10*3/uL MPV 10.1 (7.4-12.2) FL Immature Gran % (Auto) 0.5 (0-5) % Neut % (Auto) 69.2 (50-80) % Lymph % (Auto) 14.7 (10-50) % [place] % (Auto) 12.9 (5-15) % Eos % (Auto) 2.5 (0-8) % Baso % (Auto) 0.2 (0-1) % Immature Gran # (Auto) 0.06 10*3/UL Neut # (Auto) 8.69 10*3/UL Lymph # (Auto) 1.84 10*3/uL [place] # (Auto) 1.62 H (0.3-0.8) 10*3/UL Eos # (Auto) 0.31 10*3/UL Baso # (Auto) 0.03 10*3/UL WBC Morphology Comment Normal morphology (NORM) Plt Morphology Comment Normal morphology (NORM) RBC Morph Comment Normal morphology (NORM) Sodium 134 L (135-145) meq/L Potassium 4.0 (3.8-5.2) meq/L Chloride 99 (98-112) meq/L Carbon Dioxide 30 (23-33) meq/L Anion Gap 5 (5-20) BUN 14 (7-22) mg/dL Creatinine 0.7 (0.70-1.50) mg/dL Estimated GFR (>60 ml/min/1.73m(2)) BUN/Creatinine Ratio 20.00 (6-20) Glucose 140 H (78-110) mg/dL Mean Blood Glucose 152.095 mg/dL Hemoglobin A1c 7.15 H (4.2-6.0) % Calculated Osmolality 280.0 (267-292) mOsm/kg Calcium 7.9 L (8.7-10.7) mg/dL Objective : Exam - General General Appearance: Cooperative - Respiratory Respiratory Exam: Clear to Auscultation - Bilaterally, Breathing Non Labored - Cardiovascular Cardiovascular Exam: RRR, No Murmur, No Clicks, No Gallops - GI/Abdominal GI/Abdominal Exam: Non Tender, Non Distended, Soft Additional GI/Abdominal Exam Details: i did not hear Bowel sounds , but when i discussed case with Dr summers he states that he did hear BS - Extremities Extremities Exam: No Clubbing Present, No Edema Present - Neurological Neurological Exam: Alert Assessment and Plan - Patient Problems (1) Hypertension Current Visit: Yes Status: Chronic Comment: better control resumed arb/BB and CCC full dose. i have substituded nifedipine with norvasc better choice after abd surgery with less side effects. (2) Diabetes Current Visit: Yes Status: Acute Comment: stable sugars have been below 180 hgb a1c around 7 range (3) Bowel obstruction Current Visit: Yes Status: Acute Priority: High Diagnosis Date: 12/12/16 Comment: defer to Gen surgery . post- op fluids , pain control . stevens out making urine on his own. s/p hemicolectomy on clears and reglan abd films and chest x ray ordered .cont incentive spirometry i let nurse know as well as respiratory, agree with TKO fluids chest x-ray report reviewed it called for airspace disease right lung and small bilateral pleural effusions patient is not behaving like a pneumonia there is no left shift white counts improved I will give one-time dose of Lasix (4) Cecum mass Current Visit: Yes Status: Acute Priority: High Diagnosis Date: 12/12/16 (5) History of coronary artery disease Current Visit: Yes Status: Chronic Comment: stable at present all home meds resumed . Photo / Body Diagrams - Uploaded Photos Uploaded Photos:
[2016-12-17] MEDS: IPRATROPIUM/ALBUTEROL SULFATE 3 ML NEB NEB SCH ×2 (13:35→19:22)
--- NOTE | 2016-12-17 13:41 | DI ---
HISTORY: Pulmonary congestion with abdominal distention. Patient is status post right colectomy. COMPARISON: 12/15/2016. FINDINGS: Examination demonstrates right lung base airspace disease with small pleural effusions, bi laterally. Post surgical abdomen. There is evidence of an air-filled large and small bowel which ca n be seen in ileus; improved. IMPRESSION: 1. Right lung base airspace disease with small pleural effusions, bilaterally. 2. Post surgical abdomen. 3. Air-filled large and small bowel which can be seen in ileus; improved. NOTIFICATION: The above findings were phoned to Renaldo Lawson in the ER Department on 12/17/2016 at 03:4 2 PM EST.
[2016-12-17] MEDS ORDERED: FUROSEMIDE 10 MG/1 ML - 4 ML IVP ONE (14:00)
[2016-12-17] MEDS: MORPHINE SULFATE/PF PCA 30 MG/30 ML IV SCH (18:18)
[2016-12-17] MEDS: Metoprolol TARTRATE Tab 50 MG TAB PO SCH (20:00)
[2016-12-17] MEDS: NORMAL SALINE 10 ML SYRINGE FLUSH IVP PRN (20:33)
[2016-12-17] MEDS ORDERED: Metoprolol TARTRATE Tab 50 MG TAB PO SCH (21:00)
[2016-12-18] MEDS: D5-1/2NS + 20mEq KCL 1,000 ML PRIMARY IV SCH (00:33)
[2016-12-18] MEDS: Metoclopramide Inj 10 MG/2 ML VIAL IVP SCH (03:40)
[2016-12-18] MEDS: NORMAL SALINE 10 ML SYRINGE FLUSH IVP PRN (03:41)
[2016-12-18 05:34] LABS: BASOPHILS # (AUTO) 0.06 10*3/UL; BASOPHILS % (AUTO) 0.5 % (0-1); EOSINOPHILS # (AUTO) 0.31 10*3/UL; EOSINOPHILS % (AUTO) 2.6 % (0-8); HEMATOCRIT 47.2 % (42.0-52.0); HEMOGLOBIN 15.9 g/dL (14.0-18.0); LYMPHOCYTES # (AUTO) 1.96 10*3/uL; MEAN CORPUSCULAR HEMOGLOBIN 29.2 PG (27-31); MEAN CORPUSCULAR HGB CONC 33.7 g/dL (33-37); MEAN CORPUSCULAR VOLUME 86.8 FL (80-90); MEAN PLATELET VOLUME 9.9 FL (7.4-12.2); MONOCYTES # (AUTO) 1.95 10*3/UL (0.3-0.8); MONOCYTES % (AUTO) 16.6 % (5-15); NEUTROPHILS # (AUTO) 7.42 10*3/UL; RED BLOOD COUNT 5.44 10^6/uL (4.70-6.10)
[2016-12-18 05:44] LABS: BUN/CREATININE RATIO 14.28 (6-20); CALCIUM 8.3 mg/dL (8.7-10.7); SERUM ALBUMIN 2.8 g/dL (3.5-4.8)
[2016-12-18 06:43] LABS: PLATELET MORPHOLOGY COMMENT NORMAL MORPHOLOGY (NORM); RBC MORPHOLOGY COMMENT NORMAL MORPHOLOGY (NORM); WBC MORPHOLOGY COMMENT NORMAL MORPHOLOGY (NORM)
[2016-12-18] MEDS: IPRATROPIUM/ALBUTEROL SULFATE 3 ML NEB NEB SCH ×4 (06:48→19:00)
[2016-12-18] MEDS: Pantoprazole Inj 40 MG in Normal Saline Flush 10 ML IVP SCH (09:26)
[2016-12-18] MEDS: TAMSULOSIN 0.4 MG CAPSULE PO SCH (09:28)
[2016-12-18] MEDS: Metoprolol TARTRATE Tab 50 MG TAB PO SCH ×2 (09:28→20:04)
[2016-12-18] MEDS: LOSARTAN 50 MG TABLET PO SCH (09:28)
[2016-12-18] MEDS: FINASTERIDE 5 MG TABLET PO SCH (09:28)
--- NOTE | 2016-12-18 10:25 | PDOC(PROG) ---
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 Patient seen at 8:40 AM Interval History: Overall had a good night. He is tolerating clear liquids. No nausea or vomiting. Has not passed gas or had a bowel movement in the last 24 hours. Feels a little bit bloated. Patient is voiding. He is ambulatory. His pain seems well controlled. Most of the pain is under the incision. He has not had any pain medicines since 7 AM. Objective : Data - Labs CBC and BMP: 12/18/16 05:16 12/18/16 05:16 Labs - Last 24 Hours: Laboratory Results 12/18/16 Range/Units 05:16 WBC 11.77 H (4.8-10.8) 10^3/uL RBC 5.44 (4.70-6.10) 10^6/uL Hgb 15.9 (14.0-18.0) g/dL Hct 47.2 (42.0-52.0) % MCV 86.8 (80-90) FL MCH 29.2 (27-31) PG MCHC 33.7 (33-37) g/dL RDW Std Deviation 44.3 (39-50) fL RDW Coeff of Mercedes 13.9 (11.5-14.5) % Plt Count 189 (140-350) 10*3/uL MPV 9.9 (7.4-12.2) FL Immature Gran % (Auto) 0.6 (0-5) % Neut % (Auto) 63.0 (50-80) % Lymph % (Auto) 16.7 (10-50) % [place] % (Auto) 16.6 H (5-15) % Eos % (Auto) 2.6 (0-8) % Baso % (Auto) 0.5 (0-1) % Immature Gran # (Auto) 0.07 10*3/UL Neut # (Auto) 7.42 10*3/UL Lymph # (Auto) 1.96 10*3/uL [place] # (Auto) 1.95 H (0.3-0.8) 10*3/UL Eos # (Auto) 0.31 10*3/UL Baso # (Auto) 0.06 10*3/UL WBC Morphology Comment Normal morphology (NORM) Plt Morphology Comment Normal morphology (NORM) RBC Morph Comment Normal morphology (NORM) Sodium 134 L (135-145) meq/L Potassium 4.0 (3.8-5.2) meq/L Chloride 99 (98-112) meq/L Carbon Dioxide 30 (23-33) meq/L Anion Gap 5 (5-20) BUN 10 (7-22) mg/dL Creatinine 0.7 (0.70-1.50) mg/dL Estimated GFR (>60 ml/min/1.73m(2)) BUN/Creatinine Ratio 14.28 (6-20) Glucose 125 H (78-110) mg/dL Calculated Osmolality 277.0 (267-292) mOsm/kg Calcium 8.3 L (8.7-10.7) mg/dL Total Bilirubin 1.6 H (0.3-1.2) mg/dL AST 50 (21-57) IU/L ALT 53 (21-72) IU/L Alkaline Phosphatase 51 (38-126) IU/L Total Protein 5.4 L (6.1-8.0) g/dL Albumin 2.8 L (3.5-4.8) g/dL Globulin 2.6 (2.50-4.10) g/dL Albumin/Globulin Ratio 1.00 L (1.3-2.0) mg/g - Vital Signs Vital Signs and I&O: Vital Signs - Last Taken Temperature 98 F 12/18/16 06:55 Pulse Rate 74 12/18/16 06:55 Respiratory Rate 16 12/18/16 09:30 Blood Pressure 142/67 12/18/16 06:55 Pulse Ox 92 12/18/16 06:55 Intake and Output (24hr x 4 totals) 12/16/16 12/17/16 12/18/16 12/19/16 05:59 05:59 05:59 05:59 Intake Total 3103 4059 2633 889 Output Total 2400 3075 4150 625 Balance 703 491 -4644 264 Objective : Exam - General General Appearance: No Acute Distress, Cooperative - Respiratory Respiratory Exam: Breathing Non Labored, Decreased Breath Sounds (At the bases.) - Cardiovascular Cardiovascular Exam: RRR, No Murmur - GI/Abdominal GI/Abdominal Exam: Soft Additional GI/Abdominal Exam Details: Incision looks good. No sign of wound infection. Mild bruising. Tenderness under the incision. No peritoneal signs. Bowel tones present but still not normal. - Neurological Neurological Exam: Alert, Oriented x 3 - Psychiatric Psychiatric Exam: Normal Affect, Normal Mood Assessment and Plan - Patient Problems (1) Bowel obstruction Current Visit: Yes Status: Acute Priority: High Diagnosis Date: 12/12/16 Comment: Surgically corrected. (2) Cecum mass Current Visit: Yes Status: Acute Priority: High Diagnosis Date: 12/12/16 Comment: Status post right hemicolectomy with primary anastomosis. Persisting ileus. I reviewed the films from yesterday with the radiologist. There is gas past the anastomosis and some stool in the descending colon. There is stool right at the anastomosis. The proximal small bowel remains dilated. We'll continue postoperative course. We will check a magnesium and phosphorus to make sure they are not out of whack. I will give the patient some oral mineral oil and milk of magnesia to try to get the small bowel stool to move through into the colon. I discussed all the above with the patient and his family. Continue to be patient. (3) Cholelithiasis Current Visit: Yes Status: Chronic Priority: Low Diagnosis Date: 12/12/16 Comment: Status post cholecystectomy.
[2016-12-18] MEDS ORDERED: MAGNESIUM 400 MG/5 ML - 30 ML (MILK OF MAGNESIA) PO ONE (10:30)
[2016-12-18] MEDS ORDERED: Magnesium Sulfate 2gm (Premix) 2 GM in Premix 1 BAG IV ONE ×2 (11:38→23:26)
[2016-12-18] MEDS ORDERED: Potassium Phoshate Inj 20 MMOL in Sodium Chloride 0.9% 100 ML IV ONE (12:15)
[2016-12-18] MEDS ORDERED: SODIUM CHLORIDE 0.9% IV ONE (14:15)
[2016-12-18] MEDS ORDERED: POTASSIUM PHOSHATE IV ONE (14:15)
[2016-12-18] MEDS ORDERED: Sodium Chloride 0.9% 250 ML IV ONE (14:38)
--- NOTE | 2016-12-18 14:45 | PDOC(PROG) ---
Date and Time of Service: 12/18/2016, 1440, patient seen earlier. Interval History: No completes of chest pain or shortness of breath. No nausea or vomiting. Not having stools yet. But is having bowel tones. Has been ambulatory, but is confused according to his . Disoriented from the hospital stay and probably morphine. Objective : Data - Labs CBC and BMP: 12/18/16 05:16 12/18/16 05:16 Labs - Last 24 Hours: Laboratory Results 12/18/16 Range/Units 05:16 WBC 11.77 H (4.8-10.8) 10^3/uL RBC 5.44 (4.70-6.10) 10^6/uL Hgb 15.9 (14.0-18.0) g/dL Hct 47.2 (42.0-52.0) % MCV 86.8 (80-90) FL MCH 29.2 (27-31) PG MCHC 33.7 (33-37) g/dL RDW Std Deviation 44.3 (39-50) fL RDW Coeff of Mercedes 13.9 (11.5-14.5) % Plt Count 189 (140-350) 10*3/uL MPV 9.9 (7.4-12.2) FL Immature Gran % (Auto) 0.6 (0-5) % Neut % (Auto) 63.0 (50-80) % Lymph % (Auto) 16.7 (10-50) % [place] % (Auto) 16.6 H (5-15) % Eos % (Auto) 2.6 (0-8) % Baso % (Auto) 0.5 (0-1) % Immature Gran # (Auto) 0.07 10*3/UL Neut # (Auto) 7.42 10*3/UL Lymph # (Auto) 1.96 10*3/uL [place] # (Auto) 1.95 H (0.3-0.8) 10*3/UL Eos # (Auto) 0.31 10*3/UL Baso # (Auto) 0.06 10*3/UL WBC Morphology Comment Normal morphology (NORM) Plt Morphology Comment Normal morphology (NORM) RBC Morph Comment Normal morphology (NORM) Sodium 134 L (135-145) meq/L Potassium 4.0 (3.8-5.2) meq/L Chloride 99 (98-112) meq/L Carbon Dioxide 30 (23-33) meq/L Anion Gap 5 (5-20) BUN 10 (7-22) mg/dL Creatinine 0.7 (0.70-1.50) mg/dL Estimated GFR (>60 ml/min/1.73m(2)) BUN/Creatinine Ratio 14.28 (6-20) Glucose 125 H (78-110) mg/dL Calculated Osmolality 277.0 (267-292) mOsm/kg Calcium 8.3 L (8.7-10.7) mg/dL Phosphorus 3.2 (2.4-4.3) mg/dl Magnesium 1.7 (1.6-2.4) mg/dL Total Bilirubin 1.6 H (0.3-1.2) mg/dL AST 50 (21-57) IU/L ALT 53 (21-72) IU/L Alkaline Phosphatase 51 (38-126) IU/L Total Protein 5.4 L (6.1-8.0) g/dL Albumin 2.8 L (3.5-4.8) g/dL Globulin 2.6 (2.50-4.10) g/dL Albumin/Globulin Ratio 1.00 L (1.3-2.0) mg/g Objective : Exam - General General Appearance: No Acute Distress, Cooperative Additional General Exam Details: Vital Signs - Last Taken Temperature 98.1 F 12/18/16 10:58 Pulse Rate 73 12/18/16 10:58 Respiratory Rate 20 12/18/16 13:00 Blood Pressure 147/74 12/18/16 10:58 Pulse Ox 92 12/18/16 11:32 He is on 3 L per nasal cannula of oxygen. - Eye Eye Exam: No Scleral Icterus - Respiratory Respiratory Exam: Clear to Auscultation - Bilaterally, Breathing Non Labored - Cardiovascular Cardiovascular Exam: RRR, No Murmur, No Clicks, No Gallops, No Rubs, No JVD - GI/Abdominal GI/Abdominal Exam: Normal Bowel Sounds, Non Distended, Soft Additional GI/Abdominal Exam Details: Mark and incision looked clean, dry, intact. - Extremities Extremities Exam: No Clubbing Present, No Edema Present, No Cyanosis Present - Neurological Neurological Exam: Alert, No Facial Droop, Speech Intact / Clear, Moves All Extremities Equally Additional Neurological Exam Details: The patient is oriented to person, knows he is in the hospital and was quite excited to see his pathology report, but he thought I was his slip seat coverer, and occasionally had some disorientation during my examination of the patient. His states at home that the patient sometimes has severe nightmares that require reorientation to improve from. It is unclear if he had underlying dementia prior to surgery. Assessment and Plan - Patient Problems (1) Postoperative ileus Current Visit: Yes Status: Acute (2) Cecum mass Current Visit: Yes Status: Acute Priority: High Diagnosis Date: 12/12/16 (3) Diabetes Current Visit: Yes Status: Acute Qualifiers: Diabetes mellitus type: type 2 Diabetes mellitus complication status: without complication Diabetes mellitus ginger farmer insulin use: without ginger farmer use Qualified Description: Type 2 diabetes mellitus without complication, without long-term current use of insulin Qualifier Code(s): (E11.9) Type 2 diabetes mellitus without complications (4) Hypertension Current Visit: Yes Status: Chronic Qualifiers: Hypertension type: essential hypertension Qualified Description: Essential hypertension Qualifier Code(s): (I10) Essential (primary) hypertension - Assessment / Plan Additional Assessment/Plan Details: Spoke with Dr. Nobles. We will be as aggressive as we can be with magnesium and phosphorus and potassium replacement. I encouraged the patient to ambulate frequently, and also encouraged him to cut down on any morphine use as this could be causing not only confusion but could also be causing worsened ileus. He is tolerating clear liquids at this point, hopefully be able to convert to by mouth medications. Check labs tonight and tomorrow a.m. Photo / Body Diagrams - Uploaded Photos Uploaded Photos:
[2016-12-18 17:34] LABS: BLOOD UREA NITROGEN 9 mg/dL (7-22); CALCIUM 8.6 mg/dL (8.7-10.7); MAGNESIUM 2.1 mg/dL (1.6-2.4); PHOSPHORUS 4.6 mg/dl (2.4-4.3)
[2016-12-19] MEDS: IPRATROPIUM/ALBUTEROL SULFATE 3 ML NEB NEB SCH ×4 (00:12→18:39)
[2016-12-19] MEDS ORDERED: Magnesium Sulfate 2gm (Premix) 50 ML IV ONE (04:32)
[2016-12-19 04:54] LABS: BLOOD UREA NITROGEN 9 mg/dL (7-22); CALCIUM 8.4 mg/dL (8.7-10.7); MAGNESIUM 1.9 mg/dL (1.6-2.4); PHOSPHORUS 3.8 mg/dl (2.4-4.3)
[2016-12-19] MEDS: D5-1/2NS + 20mEq KCL 1,000 ML PRIMARY IV SCH ×2 (07:51→16:19)
[2016-12-19] MEDS: Pantoprazole Inj 40 MG in Normal Saline Flush 10 ML IVP SCH (08:08)
[2016-12-19] MEDS: TAMSULOSIN 0.4 MG CAPSULE PO SCH (08:09)
[2016-12-19] MEDS: LOSARTAN 50 MG TABLET PO SCH (08:09)
[2016-12-19] MEDS: FINASTERIDE 5 MG TABLET PO SCH (08:09)
[2016-12-19] MEDS: Metoprolol TARTRATE Tab 50 MG TAB PO SCH ×2 (08:09→20:08)
[2016-12-19] MEDS ORDERED: BISACODYL 10 MG SUPPOSITORY RECTAL ONE (09:30)
[2016-12-19] MEDS ORDERED: MAGNESIUM 400 MG/5 ML - 30 ML (MILK OF MAGNESIA) PO ONE ×3 (09:48→10:30)
[2016-12-19] MEDS ORDERED: Magnesium Sulfate 4gm (Premix) 4 GM in Premix 1 BAG IV ONE (11:50)
--- NOTE | 2016-12-19 12:58 | PDOC(PROG) ---
Date and Time of Service: 12/19/2016, 1254 Interval History: No completes of chest pain or shortness breath. Poor sleep overnight and confused. He ambulated well yesterday. No real results with bowel movements. 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 Plant Maintainer Hydroelectric Plant Maintainer BUN/Creatinine Ratio 15.00 15.00 (6-20) Glucose 146 H 143 H (78-110) mg/dL Calculated Osmolality 279.0 284.0 (267-292) mOsm/kg Calcium 8.6 L 8.4 L (8.7-10.7) mg/dL Phosphorus 4.6 H 3.8 (2.4-4.3) mg/dl Magnesium 2.1 1.9 (1.6-2.4) mg/dL Objective : Exam - General General Appearance: No Acute Distress, Cooperative Additional General Exam Details: Vital Signs - Last Taken Temperature 97.7 F 12/19/16 11:19 Pulse Rate 79 12/19/16 11:19 Respiratory Rate 18 12/19/16 11:19 Blood Pressure 136/71 12/19/16 11:19 Pulse Ox 91 12/19/16 11:19 on oxygen at 3 LPM - ENT ENT Exam: Mucous Membranes Moist - Respiratory Respiratory Exam: Clear to Auscultation - Bilaterally, Breathing Non Labored - Cardiovascular Cardiovascular Exam: RRR, No Murmur, No Clicks, No Gallops, No Rubs, No JVD - GI/Abdominal GI/Abdominal Exam: Non Tender, Non Distended, Soft - Extremities Extremities Exam: No Clubbing Present, No Edema Present, No Cyanosis Present - Neurological Neurological Exam: Alert, Normal Gait, No Facial Droop, Speech Intact / Clear, Moves All Extremities Equally Additional Neurological Exam Details: confused, oriented to person, not to place, time, or situation Assessment and Plan - Patient Problems (1) Delirium Current Visit: Yes Status: Acute (2) Postoperative ileus Current Visit: Yes Status: Acute (3) Cecum mass Current Visit: Yes Status: Acute Priority: High Diagnosis Date: 12/12/16 (4) Diabetes Current Visit: Yes Status: Acute Qualifiers: Diabetes mellitus type: type 2 Diabetes mellitus complication status: without complication Diabetes mellitus coal trammer insulin use: without coal trammer use Qualified Description: Type 2 diabetes mellitus without complication, without long-term current use of insulin Qualifier Code(s): (E11.9) Type 2 diabetes mellitus without complications (5) Hypertension Current Visit: Yes Status: Chronic Qualifiers: Hypertension type: essential hypertension Qualified Description: Essential hypertension Qualifier Code(s): (I10) Essential (primary) hypertension - Assessment / Plan Additional Assessment/Plan Details: Patient's delirium is likely toxic/metabolic delirium. Morphine BODY FORMER may be stopped today and that would help. Continue ambulation and frequent reorientation during the day. Seroquel at night. Replace magnesium. Check labs tomorrow. Photo / Body Diagrams - Uploaded Photos Uploaded Photos:
--- NOTE | 2016-12-19 13:18 | PDOC(PROG) ---
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 Intermittent confusion and disorientation. Denies any significant abdominal pain. He is tolerating clear liquids. No flatus or bowel movement. Denies nausea or vomiting. Voiding on his own. Objective : Data - Labs CBC and BMP: 12/18/16 05:16 12/19/16 04:28 Labs - Last 24 Hours: Laboratory Results 12/18/16 12/19/16 Range/Units 17:10 04:28 Sodium 134 L 137 (135-145) meq/L Potassium 4.2 4.0 (3.8-5.2) meq/L Chloride 96 L 99 (98-112) meq/L Carbon Dioxide 29 31 (23-33) meq/L Anion Gap 9 7 (5-20) BUN 9 9 (7-22) mg/dL Creatinine 0.6 L 0.6 L (0.70-1.50) mg/dL Estimated GFR Trim Installer Trim Installer BUN/Creatinine Ratio 15.00 15.00 (6-20) Glucose 146 H 143 H (78-110) mg/dL Calculated Osmolality 279.0 284.0 (267-292) mOsm/kg Calcium 8.6 L 8.4 L (8.7-10.7) mg/dL Phosphorus 4.6 H 3.8 (2.4-4.3) mg/dl Magnesium 2.1 1.9 (1.6-2.4) mg/dL - Vital Signs Vital Signs and I&O: Vital Signs - Last Taken Temperature 97.7 F 12/19/16 11:19 Pulse Rate 79 12/19/16 11:19 Respiratory Rate 18 12/19/16 11:19 Blood Pressure 136/71 12/19/16 11:19 Pulse Ox 91 12/19/16 11:19 Intake and Output (24hr x 4 totals) 12/17/16 12/18/16 12/19/16 12/20/16 05:59 05:59 05:59 05:59 Intake Total 2536 0513 2503 120 Output Total 3076 4150 2050 1000 Balance 584 -1517 453 -880 Objective : Exam - General General Appearance: No Acute Distress, Cooperative - Respiratory Respiratory Exam: Clear to Auscultation - Bilaterally, Breathing Non Labored - Cardiovascular Cardiovascular Exam: RRR, No Murmur - GI/Abdominal GI/Abdominal Exam: Soft Additional GI/Abdominal Exam Details: Incision looks good. No sign of infection. Incisional tenderness only. Abdomen is otherwise soft. Still has abnormal bowel tones consistent with an ileus. - Rectal Rectal Exam: Deferred Assessment and Plan - Patient Problems (1) Cecum mass Current Visit: Yes Status: Acute Priority: High Diagnosis Date: 12/12/16 Comment: Status post right hemicolectomy. Postoperative ileus persists. Discussed again with the patient, his , and Dr. Pina. Patient has gotten more milk of magnesia and mineral oil as well as a Dulcolax suppository. We will resume the Reglan. We will check a flat and upright abdominal x-ray tomorrow. If this has not resolved we will consider oral Gastrografin with a Gastrografin challenge or oral Gastrografin with a CT abdomen and pelvis with IV contrast. If we are unable to advance his diet tomorrow and we'll need to start him on peripheral nutrition and lipids. Check a.m. labs and x-ray.
[2016-12-19] MEDS: HYDROcodone-APAP 5 MG -325 MG TABLET PO PRN (19:22)
[2016-12-19] MEDS ORDERED: QUEtiapine Tab 100 MG TAB PO SCH (21:00)
[2016-12-19] MEDS ORDERED: HALOPERIDOL LACTATE 5 MG/1 ML AMPULE IM ONE (22:51)
[2016-12-20] MEDS ORDERED: HALOPERIDOL LACTATE 5 MG/1 ML AMPULE IM ONE (02:11)
[2016-12-20] MEDS: HYDROcodone-APAP 5 MG -325 MG TABLET PO PRN ×2 (02:27→17:35)
[2016-12-20] MEDS: IPRATROPIUM/ALBUTEROL SULFATE 3 ML NEB NEB SCH ×2 (03:29→07:10)
--- NOTE | 2016-12-20 07:54 | DI ---
KUB and UPRIGHT ABDOMEN, 12/20/2016 7:00 AM: Clinical History: Postoperative ileus. Status post right hemicolectomy for colon cancer. Previous Exam: 12/17/2016. There is no dilatation of small bowel. No significant air-fluid levels are present. There is no free air or fluid. There is minimal atelectasis in the right lower lobe. The left lower lobe atelectasis h as resolved completely. Readin. The bowel gas pattern has reverted to a normal appearance. 2. There has been complete resolution of the left lower lobe atelectasis and almost complete resolut ion of the right lower lobe atelectasis.
[2016-12-20] MEDS: Pantoprazole Inj 40 MG in Normal Saline Flush 10 ML IVP SCH (08:56)
[2016-12-20] MEDS: LOSARTAN 50 MG TABLET PO SCH (08:59)
[2016-12-20] MEDS: TAMSULOSIN 0.4 MG CAPSULE PO SCH (08:59)
[2016-12-20] MEDS: Metoprolol TARTRATE Tab 50 MG TAB PO SCH ×2 (08:59→20:30)
[2016-12-20] MEDS: FINASTERIDE 5 MG TABLET PO SCH (09:00)
[2016-12-20 10:11] LABS: HEMATOCRIT 47.7 % (42.0-52.0); HEMOGLOBIN 16.1 g/dL (14.0-18.0); MEAN CORPUSCULAR HEMOGLOBIN 29.3 PG (27-31); MEAN CORPUSCULAR HGB CONC 33.8 g/dL (33-37); MEAN CORPUSCULAR VOLUME 86.9 FL (80-90); MEAN PLATELET VOLUME 9.7 FL (7.4-12.2); RED BLOOD COUNT 5.49 10^6/uL (4.70-6.10)
--- NOTE | 2016-12-20 10:11 | PDOC(PROG) ---
Subjective Post Op Day: 7 Pain Management: PO Whatley Catheter: No Flatus: Yes Diet: Clear Liquids Ambulating: Yes Date and Time of Service: 12/20/2016 10 AM Interval History: Had another rough night. Combative and confused. Got some Haldol. He is tolerating clear liquids. Denies nausea. Had multiple bowel movements overnight. Denies abdominal pain. He is voiding. He is ambulatory. Objective : Data - Labs CBC and BMP: 12/18/16 05:16 12/19/16 04:28 - Imaging Imaging Details: X-ray is improved. Decreased pulmonary congestion. Stool and gas in the transverse colon. Distal colon decompressed. Decreased distention of the small bowel. - Vital Signs Vital Signs and I&O: Vital Signs - Last Taken Temperature 98.6 F 12/20/16 04:39 Pulse Rate 96 12/20/16 05:00 Respiratory Rate 22 12/20/16 05:00 Blood Pressure 166/70 12/20/16 05:00 Pulse Ox 92 12/20/16 05:00 Intake and Output (24hr x 4 totals) 12/18/16 12/19/16 12/20/16 12/21/16 05:59 05:59 05:59 05:59 Intake Total 2633 2503 1628 490 Output Total 4150 2050 2100 Balance -1517 453 -472 490 Objective : Exam - General General Appearance: No Acute Distress, Cooperative - Respiratory Respiratory Exam: Clear to Auscultation - Bilaterally, Breathing Non Labored - Cardiovascular Cardiovascular Exam: RRR, No Murmur - GI/Abdominal GI/Abdominal Exam: Non Distended, Soft Additional GI/Abdominal Exam Details: Incision looks good. Clean and dry. Mark are intact. Abdomen is soft. Bowel movements much more normal. Abdomen much softer and less distended. Assessment and Plan - Patient Problems (1) Cecum mass Current Visit: Yes Status: Acute Priority: High Diagnosis Date: 12/12/16 Comment: Status post right hemicolectomy. Ileus seems to be resolving. He is now passing gas and stool. We will increase his diet to full liquids.. Expect discharge in roughly 48 hours pending his clinical course and confusion. Question short-term usp placement. Question swing bed.
[2016-12-20 10:28] LABS: NEUTROPHILS % (MANUAL) 84 % (50-80)
[2016-12-20 10:29] LABS: BAND NEUTROPHILS % 0 % (0-10); BASOPHILS % (MANUAL) 0 % (0-1); EOSINOPHILS % (MANUAL) 1 % (0-8); LYMPHOCYTES % (MANUAL) 10 % (10-50); MONOCYTES % (MANUAL) 5 % (0-12); PLATELET MORPHOLOGY COMMENT NORMAL MORPHOLOGY (NORM); RBC MORPHOLOGY COMMENT NORMAL MORPHOLOGY (NORM); WBC MORPHOLOGY COMMENT NORMAL MORPHOLOGY (NORM)
[2016-12-20 10:34] LABS: BUN/CREATININE RATIO 18.57 (6-20); CALCIUM 8.5 mg/dL (8.7-10.7); MAGNESIUM 2.3 mg/dL (1.6-2.4); PHOSPHORUS 3.4 mg/dl (2.4-4.3); SERUM ALBUMIN 3.4 g/dL (3.5-4.8)
--- NOTE | 2016-12-20 11:55 | DI ---
AP CHEST X-RAY, 12/20/2016 11:01 AM : Clinical History: Hypoxia. Leukocytosis. Previous Exam: 12/17/2016. There is no acute soft tissue or bony abnormality. There is mild cardiomegaly without CHF. There is m inimal right lower lobe atelectasis with almost complete resolution of the left lower lobe atelectasi s. The pulmonary arteries are prominent in this patient probably has pulmonary arterial hypertension. There are no pulmonary nodules. There is a curvilinear skinfold in the right posterior thorax. Reading: There is minimal bibasilar atelectasis representing marked improvement from the previous study. There is no acute infiltrate to explain the patient's hypoxia and leukocytosis.
[2016-12-20 13:12] LABS: BILIRUBIN,URINE NEGATIVE (NEG); COLOR,URINE YELLOW; GLUCOSE, URINE (UA) NEGATIVE (NEG); NITRATE,URINE NEGATIVE (NEG); OCCULT BLOOD,URINE Trace-intact (NEG); PROTEIN,URINE NEGATIVE (NEG); UROBILINOGEN,URINE 0.2 EU/dL (0.2)
[2016-12-20 13:22] LABS: CLARITY,URINE CLEAR (CLEAR); SQUAMOUS EPITHELIAL CELL,UR RARE; URINE SAMPLE TYPE CATH SPECIMEN; WBC,URINE 0-1
[2016-12-20] MEDS: Sodium Chloride 0.9% 1,000 ML PRIMARY IV SCH ×2 (13:30→23:38)
[2016-12-20] MEDS: QUEtiapine Tab 100 MG TAB PO SCH (20:31)
[2016-12-21] MEDS: HYDROcodone-APAP 5 MG -325 MG TABLET PO PRN ×3 (01:20→20:11)
[2016-12-21 05:11] LABS: BASOPHILS # (AUTO) 0.02 10*3/UL; BASOPHILS % (AUTO) 0.2 % (0-1); EOSINOPHILS # (AUTO) 0.67 10*3/UL; EOSINOPHILS % (AUTO) 5.8 % (0-8); HEMATOCRIT 49.1 % (42.0-52.0); HEMOGLOBIN 16.3 g/dL (14.0-18.0); LYMPHOCYTES # (AUTO) 2.25 10*3/uL; MEAN CORPUSCULAR HEMOGLOBIN 29.1 PG (27-31); MEAN CORPUSCULAR HGB CONC 33.2 g/dL (33-37); MEAN CORPUSCULAR VOLUME 87.5 FL (80-90); MEAN PLATELET VOLUME 10.3 FL (7.4-12.2); MONOCYTES # (AUTO) 1.99 10*3/UL (0.3-0.8); MONOCYTES % (AUTO) 17.1 % (5-15); NEUTROPHILS # (AUTO) 6.58 10*3/UL; NEUTROPHILS % (AUTO) 56.6 % (50-80); RED BLOOD COUNT 5.61 10^6/uL (4.70-6.10)
[2016-12-21 05:15] LABS: PLATELET MORPHOLOGY COMMENT NORMAL MORPHOLOGY (NORM); RBC MORPHOLOGY COMMENT NORMAL MORPHOLOGY (NORM); WBC MORPHOLOGY COMMENT NORMAL MORPHOLOGY (NORM)
[2016-12-21 05:19] LABS: BLOOD UREA NITROGEN 12 mg/dL (7-22); BUN/CREATININE RATIO 17.14 (6-20); CALCIUM 8.5 mg/dL (8.7-10.7); MAGNESIUM 2.1 mg/dL (1.6-2.4)
[2016-12-21] MEDS: TAMSULOSIN 0.4 MG CAPSULE PO SCH (08:47)
[2016-12-21] MEDS: FINASTERIDE 5 MG TABLET PO SCH (08:47)
[2016-12-21] MEDS: Metoprolol TARTRATE Tab 50 MG TAB PO SCH ×2 (08:48→20:12)
[2016-12-21] MEDS: LOSARTAN 50 MG TABLET PO SCH (08:48)
--- NOTE | 2016-12-21 10:03 | PDOC(PROG) ---
Subjective Post Op Day: 8 Pain Management: PO Whatley Catheter: No Flatus: Yes Diet: full liqui Ambulating: Yes Date and Time of Service: 12/21/2016 9:45 AM Interval History: Had a much better night. Had a hard time getting to sleep but then slept for hours. Tolerating a full liquid diet. Passing gas. No documented bowel movement since yesterday morning. He is ambulatory. Went down to physical therapy today. No nausea or vomiting. Patient knows he is in the hospital. He knows my name is Dr. Nobles. He knows the month and year. Seems much clearer today. and family thinks they could handle him at home. Surgically almost ready for discharge. Objective : Data - Labs CBC and BMP: 12/21/16 04:15 12/21/16 04:15 Labs - Last 24 Hours: Laboratory Results 12/20/16 12/20/16 12/21/16 Range/Units 10:08 13:00 04:15 WBC 12.57 H 11.61 H (4.8-10.8) 10^3/uL RBC 5.49 5.61 (4.70-6.10) 10^6/uL Hgb 16.1 16.3 (14.0-18.0) g/dL Hct 47.7 49.1 (42.0-52.0) % MCV 86.9 87.5 (80-90) FL MCH 29.3 29.1 (27-31) PG MCHC 33.8 33.2 (33-37) g/dL RDW Std Deviation 45.2 46.1 (39-50) fL RDW Coeff of Mercedes 14.2 14.4 (11.5-14.5) % Plt Count 303 336 (140-350) 10*3/uL MPV 9.7 10.3 (7.4-12.2) FL Immature Gran % (Auto) 0.9 (0-5) % Neut % (Auto) 56.6 (50-80) % Lymph % (Auto) 19.4 (10-50) % [place] % (Auto) 17.1 H (5-15) % Eos % (Auto) 5.8 (0-8) % Baso % (Auto) 0.2 (0-1) % Immature Gran # (Auto) 0.10 10*3/UL Neut # (Auto) 6.58 10*3/UL Lymph # (Auto) 2.25 10*3/uL [place] # (Auto) 1.99 H (0.3-0.8) 10*3/UL Eos # (Auto) 0.67 10*3/UL Baso # (Auto) 0.02 10*3/UL Neutrophils % (Manual) 84 H (50-80) % Band Neutrophils % 0 (0-10) % Lymphocytes % (Manual) 10 (10-50) % Monocytes % (Manual) 5 (0-12) % Eosinophils % (Manual) 1 (0-8) % Basophils % (Manual) 0 (0-1) % Metamyelocytes % Not Reportable Myelocytes % Not Reportable Promyelocytes % Not Reportable Blast Cells Not Reportable WBC Morphology Comment Normal morphology Normal morphology (NORM) Plt Morphology Comment Normal morphology Normal morphology (NORM) RBC Morph Comment Normal morphology Normal morphology (NORM) Sodium 136 137 (135-145) meq/L Potassium 4.1 4.7 (3.8-5.2) meq/L Chloride 99 99 (98-112) meq/L Carbon Dioxide 28 29 (23-33) meq/L Anion Gap 9 9 (5-20) BUN 13 12 (7-22) mg/dL Creatinine 0.7 0.7 (0.70-1.50) mg/dL Estimated GFR (>60 ml/min/1.73m(2)) BUN/Creatinine Ratio 18.57 17.14 (6-20) Glucose 127 H 130 H (78-110) mg/dL Calculated Osmolality 283.0 285.0 (267-292) mOsm/kg Lactic Acid < 0.5 L (0.70-2.10) MMOL/L Calcium 8.5 L 8.5 L (8.7-10.7) mg/dL Phosphorus 3.4 (2.4-4.3) mg/dl Magnesium 2.3 2.1 (1.6-2.4) mg/dL Total Bilirubin 1.3 H (0.3-1.2) mg/dL AST 37 (21-57) IU/L ALT 45 (21-72) IU/L Alkaline Phosphatase 64 (38-126) IU/L Total Protein 6.5 (6.1-8.0) g/dL Albumin 3.4 L (3.5-4.8) g/dL Globulin 3.1 (2.50-4.10) g/dL Albumin/Globulin Ratio 1.00 L (1.3-2.0) mg/g Ur Collection Type Cath specimen Urine Color Yellow Urine Clarity Clear (CLEAR) Urine pH 7.0 (5.0-8.5) Ur Specific [place]ley 1.015 (1.005-1.030) Urine Protein Negative (NEG) mg/dl Urine Glucose (UA) Negative (NEG) mg/dL Urine Ketones Negative (NEG) Urine Occult Blood Trace-intact H (NEG) Urine Nitrate Negative (NEG) Urine Bilirubin Negative (NEG) Urine Urobilinogen 0.2 (0.2) EU/dL Ur Leukocyte Esterase Negative (NEG) Urine RBC 1-3 (NONE) /hpf Urine WBC 0-1 (NONE) Ur Squamous Epith Cells Rare (NONE) Ur Renal Epithelial Cell None (NONE) Urine Crystals None Urine Bacteria None (NONE) Urine Casts None (NONE) Urine Mucus Few (NONE) Urine Trichomonas None (NONE) Urine Yeast None (NONE) Ur Culture Indicated? Culture not set - Vital Signs Vital Signs and I&O: Vital Signs - Last Taken Temperature 97.2 F 12/21/16 07:59 Pulse Rate 90 12/21/16 07:59 Respiratory Rate 18 12/21/16 07:59 Blood Pressure 139/43 12/21/16 07:59 Pulse Ox 90 12/21/16 07:59 Intake and Output (24hr x 4 totals) 12/19/16 12/20/16 12/21/16 12/22/16 05:59 05:59 05:59 05:59 Intake Total 2503 1628 1490 120 Output Total 2050 2100 1501 Balance 453 -472 -11 120 Objective : Exam - General General Appearance: No Acute Distress, Cooperative - Respiratory Respiratory Exam: Clear to Auscultation - Bilaterally, Breathing Non Labored - Cardiovascular Cardiovascular Exam: RRR, No Murmur - GI/Abdominal GI/Abdominal Exam: Normal Bowel Sounds, Non Tender (Some incisional tenderness only.), Non Distended, Soft Additional GI/Abdominal Exam Details: Incision looks good. Abdomen is much softer and less distended. Good bowel tones. - Neurological Neurological Exam: Alert, Oriented x 3 Assessment and Plan - Patient Problems (1) Cecum mass Current Visit: Yes Status: Acute Priority: High Diagnosis Date: 12/12/16 Comment: Status post right hemicolectomy. Surgically doing very well. Postoperative ileus has resolved. We'll advance to a soft mechanical diet. If he tolerates that I think he could be discharged home tomorrow from a surgical viewpoint. His confusion seems much improved. We will see what is available for home health services. Discussed at length with the patient and his family. Will discuss with Dr. Pina later today. Also discussed with the program planner.
[2016-12-21] MEDS ORDERED: MAGNESIUM 400 MG/5 ML - 30 ML (MILK OF MAGNESIA) PO ONE (10:05)
--- NOTE | 2016-12-21 10:14 | PTI REPORT ---
Thank you for the referral of Madi Ayala. He was seen on 12/20/16 for an inpatient evaluation secondary to weakness. SUBJECTIVE: The patient is an 81-year-old male who was referred by Dr. Pina and Dr. Nobles due to weakness secondary to an abdominal surgery several days ago. Prior to the surgery the patient was ambulating without assistive devices according to his . The patient lives with his on [address] in a home with three steps going in to the front door and four out the back door. He states that his stomach was hurting for quite some time and he finally decided to do something about it which brought him to the hospital. The patient states his has a walker at home but he denies using any assistive devices prior to this surgery. The patient's is his only caregiver at this time. He does have a supportive family outside the home. PAST MEDICAL HISTORY: Past medical history can be found in the patient's medical record. OBJECTIVE FINDINGS: General observations: The patient was oriented but not very alert. He needed extra time for processing. He had a hard time remembering simple words. As a general rule, he recognized the therapist and knew what day it was. He remembered his address after a couple of minutes. He just seems to struggle for processing but does get there. Range of motion: The patient demonstrates range of motion of both hips that demonstrates -1 or 2 hip flexion contractures. Knees are within functional limits as well as ankles. Upper extremity range of motion is within functional limits. Strength: Lower extremity strength is 3/5. Open chain activities and transfers are monitor and storage bin tender on his stomach. Upper extremity strength is within functional limits and non painful. Bed mobility: The patient needed moderate assist of one to come from supine to sit due to stomach pain. Transfers: The patient needed stand by assist to transfer from sit to stand. Ambulation: The patient ambulated with a walker up to 60 feet. He needed verbal prompting and cueing on directions on which way to go. Balance: Balance is fair to fair minus. A Huff score was hard to assess secondary to his stomach issues. He is probably a MODERATE risk for falling based on our professional judgment. ASSESSMENT: Problem List: Decreased ability to perform transfers Decreased ability to perform ambulation Moderate risk for falling at this time Short-Term Goals: To be met by discharge from inpatient: Patient will be independent with all bed mobility and transfers. Patient will be able to ambulate household distances with least restrictive assistive device. Patient will improve lower extremity strength to 4/5. Long-Term Goals: To be met following discharge from inpatient: Patient will be able to return home, performing all transfers and ADLs at prior level of function. TREATMENT PLAN: Patient will be seen B.I.D during the week and one time per day over the weekend as an inpatient for strengthening of uppers and lowers, transfer training, and overall work on his endurance, balance, and safety. It would be beneficial to have OT work with him on ADLs prior to leaving the hospital. INITIAL TREATMENT: Treatment today consisted of the initial evaluation activities only. COLEMAN
[2016-12-21] MEDS: Sodium Chloride 0.9% 1,000 ML PRIMARY IV SCH (11:51)
--- NOTE | 2016-12-21 15:42 | PDOC(PROG) ---
Date and Time of Service: 12/21/2016, 1635 Interval History: No chest pain and no shortness of breath. Doing much better. More oriented. Abdominal pain control. Passing gas. Having stools. Slept much better last night overall. I spoke with Dr. Nobles and we both think that the patient probably could discharge tomorrow if he keeps this up. Objective : Data - Labs CBC and BMP: 12/21/16 04:15 12/21/16 04:15 Labs - Last 24 Hours: Laboratory Results 12/21/16 Range/Units 04:15 WBC 11.61 H (4.8-10.8) 10^3/uL RBC 5.61 (4.70-6.10) 10^6/uL Hgb 16.3 (14.0-18.0) g/dL Hct 49.1 (42.0-52.0) % MCV 87.5 (80-90) FL MCH 29.1 (27-31) PG MCHC 33.2 (33-37) g/dL RDW Std Deviation 46.1 (39-50) fL RDW Coeff of Mercedes 14.4 (11.5-14.5) % Plt Count 336 (140-350) 10*3/uL MPV 10.3 (7.4-12.2) FL Immature Gran % (Auto) 0.9 (0-5) % Neut % (Auto) 56.6 (50-80) % Lymph % (Auto) 19.4 (10-50) % Rankin % (Auto) 17.1 H (5-15) % Eos % (Auto) 5.8 (0-8) % Baso % (Auto) 0.2 (0-1) % Immature Gran # (Auto) 0.10 10*3/UL Neut # (Auto) 6.58 10*3/UL Lymph # (Auto) 2.25 10*3/uL Rankin # (Auto) 1.99 H (0.3-0.8) 10*3/UL Eos # (Auto) 0.67 10*3/UL Baso # (Auto) 0.02 10*3/UL WBC Morphology Comment Normal morphology (NORM) Plt Morphology Comment Normal morphology (NORM) RBC Morph Comment Normal morphology (NORM) Sodium 137 (135-145) meq/L Potassium 4.7 (3.8-5.2) meq/L Chloride 99 (98-112) meq/L Carbon Dioxide 29 (23-33) meq/L Anion Gap 9 (5-20) BUN 12 (7-22) mg/dL Creatinine 0.7 (0.70-1.50) mg/dL Estimated GFR (>60 ml/min/1.73m(2)) BUN/Creatinine Ratio 17.14 (6-20) Glucose 130 H (78-110) mg/dL Calculated Osmolality 285.0 (267-292) mOsm/kg Lactic Acid < 0.5 L (0.70-2.10) MMOL/L Calcium 8.5 L (8.7-10.7) mg/dL Magnesium 2.1 (1.6-2.4) mg/dL Objective : Exam - General General Appearance: No Acute Distress, Cooperative Additional General Exam Details: Vital Signs - Last Taken Temperature 98.4 F 12/21/16 11:11 Pulse Rate 71 12/21/16 11:11 Respiratory Rate 17 12/21/16 11:11 Blood Pressure 117/49 12/21/16 11:11 Pulse Ox 96 12/21/16 11:11 On about 2-3 L per nasal cannula, - Eye Eye Exam: No Scleral Icterus - Respiratory Respiratory Exam: Clear to Auscultation - Bilaterally, Breathing Non Labored - Cardiovascular Cardiovascular Exam: RRR, No Murmur, No Clicks, No Gallops, No Rubs, No JVD - GI/Abdominal GI/Abdominal Exam: Normal Bowel Sounds, Non Tender, Non Distended, Soft - Extremities Extremities Exam: No Clubbing Present, No Edema Present, No Cyanosis Present - Neurological Neurological Exam: Alert, Oriented x 3 (Today much better), No Facial Droop, Speech Intact / Clear, Moves All Extremities Equally - Psychiatric Psychiatric Exam: Normal Affect, Normal Mood Assessment and Plan - Patient Problems (1) Colon cancer Current Visit: Yes Status: Acute Qualifiers: Colon location: unspecified part of colon Qualified Description: Malignant neoplasm of colon, unspecified part of colon Qualifier Code(s): (C18.9) Malignant neoplasm of colon, unspecified (2) Delirium Current Visit: Yes Status: Resolved (3) Postoperative ileus Current Visit: Yes Status: Resolved (4) Cecum mass Current Visit: Yes Status: Acute Priority: High Diagnosis Date: 12/12/16 (5) Diabetes Current Visit: Yes Status: Acute Qualifiers: Diabetes mellitus type: type 2 Diabetes mellitus complication status: without complication Diabetes mellitus lobsterman insulin use: without lobsterman use Qualified Description: Type 2 diabetes mellitus without complication, without long-term current use of insulin Qualifier Code(s): (E11.9) Type 2 diabetes mellitus without complications (6) Hypertension Current Visit: Yes Status: Chronic Qualifiers: Hypertension type: essential hypertension Qualified Description: Essential hypertension Qualifier Code(s): (I10) Essential (primary) hypertension - Assessment / Plan Additional Assessment/Plan Details: I suspect overall that the patient does have underlying dementia. We will continue PT and OT for the patient on an outpatient basis and have OT do a cognitive evaluation as well. Tylenol for pain when necessary. Continue PT and OT. Fluids stopped. Home health for wound checks, medication management, and vital assessment. I may do Seroquel for 1 week to try and help continue regulation of the sleep cycle and then stop that medication. Photo / Body Diagrams - Uploaded Photos Uploaded Photos:
--- NOTE | 2016-12-21 16:31 | PT.PROG ---
Progress Note Progress Note: S. Patient stated that he would go to the therapy gym this morning. O. Patient ambulated 60 feet to the wheelchair and was wheeled to the therapy gym where he performed seated exercises in the form of; heel toe raises, marches , long arc quads, pillow squeezes all x 10 bilaterally, sit to stands x 5. Patient ambulated 100 feet to the wheelchair and was returned to his room where he was left in his chair with alarm and call light. A. Patient tolerated therapy fair this morning, didn't want to stress abdomen musculature therefore did not do much exercise. patient was able to ambulate with CGA Patient continues to have balance deficits however is making progress with mobility and endurance. Patient would continue to benefit from skilled therapy at this time. P. continue POC.
--- NOTE | 2016-12-21 16:35 | OT.PROG ---
Progress Note Progress Note: S: pt stated that he gets to go home tomorrow. O: pt was seen in his room, as he completed transition from supine to EOB Ind. He completed transfer to restroom Ind and completed hygiene at sink Ind with cues on direction of sink. He completed transfer downstairs for therapy with CGA. While in therapy he completed 2# shoulder flex with BUE x15 and with 2# completed sit to stands which was completed only with CGa for safety. pt was returned to her room and was left upright on EOB with present. Alarm was placed to on. A: pt cognitive ability had decreased and appears to needs some simple cues to complete ADL tasks. P: pt will most likely d/c tomorrow, but until then will continue per plan of care
--- NOTE | 2016-12-21 16:46 | PT.PROG ---
Progress Note Progress Note: S. Patient stated that he is very tired this afternoon however he would go do a little therapy. O. Patient ambulated 175 feet to the therapy gym where he used the nu-step x 6 minutes then worked with OT for more treatment then ambulated 175 feet back to his room where he was left in bed with alarm and call light. A. Patient tolerated ambulation well, he continues to require CGA due to slight balance deficits however is making gains with mobility. Patient would continue to benefit from skilled therapy to increase strength and endurance. P. Continue POC.
[2016-12-21] MEDS: QUEtiapine Tab 100 MG TAB PO SCH (20:12)
[2016-12-22] MEDS: HYDROcodone-APAP 5 MG -325 MG TABLET PO PRN ×2 (06:19→20:40)
[2016-12-22] MEDS: FINASTERIDE 5 MG TABLET PO SCH (09:07)
[2016-12-22] MEDS: Metoprolol TARTRATE Tab 50 MG TAB PO SCH ×2 (09:07→20:32)
[2016-12-22] MEDS: LOSARTAN 50 MG TABLET PO SCH (09:07)
[2016-12-22] MEDS: TAMSULOSIN 0.4 MG CAPSULE PO SCH (09:08)
--- NOTE | 2016-12-22 09:31 | PDOC(PROG) ---
Subjective Post Op Day: 9 Pain Management: PO Whatley Catheter: No Flatus: Yes Diet: Regular Ambulating: Yes Date and Time of Service: 12/22/2016 9:15 AM Interval History: Overall doing much better. Tolerating a regular diet. Much clearer mentally. No nausea or vomiting. Multiple stools. Pain controlled. Last night the nursing staff called and said he was having a lot of diarrhea. That was good as he was clearing out his bowel. The nurse said he also noticed a left inguinal hernia which was uncomfortable. I examined his groins at the time of admission and he did not have any incarcerated hernia at that time. He was not nauseated or vomiting and again was stooling. 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 He thinks the left side is only been fixed once. This morning he was uncomfortable unless he is standing. He has an obviously incarcerated inguinal hernia which I doubt contains bowel. He is going to need to be taken to surgery for surgical correction. I am actually leaving town on vacation. Dr. Gomez has seen the patient and will manage his inguinal herniorrhaphy. Patient will not be ready for discharge until at least tomorrow. Otherwise he was ready to go home today. Objective : Data - Labs CBC and BMP: 12/21/16 04:15 12/21/16 04:15 - Vital Signs Vital Signs and I&O: Vital Signs - Last Taken Temperature 97.6 F 12/22/16 08:25 Pulse Rate 77 12/22/16 08:25 Respiratory Rate 15 12/22/16 08:25 Blood Pressure 135/61 12/22/16 08:25 Pulse Ox 92 12/22/16 08:25 Intake and Output (24hr x 4 totals) 12/20/16 12/21/16 12/22/16 12/23/16 05:59 05:59 05:59 05:59 Intake Total 1628 1490 725 240 Output Total 2100 1501 150 200 Balance -472 -11 575 40 Objective : Exam - General General Appearance: Cooperative, Mild Distress - Respiratory Respiratory Exam: Clear to Auscultation - Bilaterally, Breathing Non Labored - Cardiovascular Cardiovascular Exam: RRR, No Murmur - GI/Abdominal GI/Abdominal Exam: Normal Bowel Sounds, Non Tender, Non Distended, Soft Additional GI/Abdominal Exam Details: Incision looks good. [place] are been removed. Mastisol and Steri-Strips have been applied. Patient has a tender mass in his left groin. This is consistent with an incarcerated inguinal hernia. I tried to reduce it both upright and in the supine position and he is too tender to reduce. - Neurological Neurological Exam: Alert, Oriented x 3 Assessment and Plan - Patient Problems (1) Cecum mass Current Visit: Yes Status: Acute Priority: High Diagnosis Date: 12/12/16 Comment: Status post right hemicolectomy. Bowel function has returned. He is ready to be discharged home except for the fact that he now has an incarcerated left inguinal hernia. (2) Incarcerated left inguinal hernia Current Visit: Yes Status: Acute Priority: High Diagnosis Date: 12/21/16 Comment: Nursing staff states he had a hernia last night. No nausea or vomiting. He was stooling. Unlikely to contain bowel. Today it is tender and not reducible. As I am leaving town Dr. Gomez will assume care. He plans a hernia repair in the near future.
[2016-12-22] MEDS ORDERED: BUPIVACAINE 0.5% W/ EPI - 10 ML VIAL ONE ×2 (09:47→10:27)
[2016-12-22] MEDS ORDERED: Lactated Ringers 1,000 ML PRIMARY IV ONE (09:52)
--- NOTE | 2016-12-22 09:55 | PDOC(PROG) ---
Date and Time of Service: 12/22/2016, 954 Interval History: Discussed with Dr. Nobles this morning. Patient has an incarcerated inguinal hernia that he will be going to the operating room for today with Dr. Gomez is Dr. Nobles is leaving town today. The patient denies any chest pain or shortness of breath. His confusion is significantly better. He had some looser stools but has been on milk of magnesia daily. No nausea and no vomiting. Objective : Data - Labs CBC and BMP: 12/21/16 04:15 12/21/16 04:15 Objective : Exam - General General Appearance: No Acute Distress, Cooperative Additional General Exam Details: Vital Signs - Last Taken Temperature 97.6 F 12/22/16 08:25 Pulse Rate 77 12/22/16 08:25 Respiratory Rate 15 12/22/16 08:25 Blood Pressure 135/61 12/22/16 08:25 Pulse Ox 92 12/22/16 08:25 - Eye Eye Exam: No Scleral Icterus - ENT ENT Exam: Mucous Membranes Moist - Respiratory Respiratory Exam: Clear to Auscultation - Bilaterally, Breathing Non Labored - Cardiovascular Cardiovascular Exam: RRR, No Murmur, No Clicks, No Gallops, No Rubs, No JVD - GI/Abdominal GI/Abdominal Exam: Non Tender, Non Distended, Soft - Extremities Extremities Exam: No Clubbing Present, No Edema Present, No Cyanosis Present - Neurological Neurological Exam: Alert, Normal Gait, No Facial Droop, Speech Intact / Clear, Moves All Extremities Equally Assessment and Plan - Patient Problems (1) Incarcerated left inguinal hernia Current Visit: Yes Status: Acute Priority: High Diagnosis Date: 12/21/16 (2) Colon cancer Current Visit: Yes Status: Acute Qualifiers: Colon location: unspecified part of colon Qualified Description: Malignant neoplasm of colon, unspecified part of colon Qualifier Code(s): (C18.9) Malignant neoplasm of colon, unspecified (3) Cecum mass Current Visit: Yes Status: Acute Priority: High Diagnosis Date: 12/12/16 (4) Diabetes Current Visit: Yes Status: Acute Qualifiers: Diabetes mellitus type: type 2 Diabetes mellitus complication status: without complication Diabetes mellitus intermediate school teacher insulin use: without intermediate school teacher use Qualified Description: Type 2 diabetes mellitus without complication, without long-term current use of insulin Qualifier Code(s): (E11.9) Type 2 diabetes mellitus without complications (5) Hypertension Current Visit: Yes Status: Chronic Qualifiers: Hypertension type: essential hypertension Qualified Description: Essential hypertension Qualifier Code(s): (I10) Essential (primary) hypertension (6) Cognitive impairment Current Visit: Yes Status: Suspected - Assessment / Plan Additional Assessment/Plan Details: 2 OR today for inguinal hernia repair with Dr. Gomez. From my side, continue blood sugar regimen for blood sugar control. PT and OT to continue. We will see how the pain is for the patient tomorrow, given the patient's age and overall medical condition, we may need to watch him another day or so in the hospital beyond that but will see tomorrow how he feels. Check labs tomorrow. From my side, the patient can proceed to the operating room with postoperative risk stratification. Photo / Body Diagrams - Uploaded Photos Uploaded Photos:
[2016-12-22] MEDS ORDERED: ceFAZolin Inj 2gm (Premix) 50 ML IV ONE (09:57)
[2016-12-22] MEDS ORDERED: fentaNYL Inj 250 MCG/5 ML VIAL ONE (10:01)
[2016-12-22] MEDS ORDERED: BUPivacaine Liposome/PF (Exparel) Inj 20ml vial INFIL ONE (10:01)
[2016-12-22] MEDS ORDERED: MIDAZOLAM 5 MG/1 ML ONE (10:01)
--- NOTE | 2016-12-22 10:02 | PDOC(PROG) ---
Date and Time of Service: 12/22/2016 at 9:30 Interval History: Been asked by Dr. Nobles to see Mr. Mckeon. Patient has an incarcerated hernia. Dr. Nobles was unsuccessful in reducing the hernia. Objective : Data - Labs CBC and BMP: 12/21/16 04:15 12/21/16 04:15 - Vital Signs Vital Signs and I&O: Vital Signs - Last Taken Temperature 97.6 F 12/22/16 08:25 Pulse Rate 77 12/22/16 08:25 Respiratory Rate 15 12/22/16 08:25 Blood Pressure 135/61 12/22/16 08:25 Pulse Ox 92 12/22/16 08:25 Intake and Output (24hr x 4 totals) 12/20/16 12/21/16 12/22/16 12/23/16 05:59 05:59 05:59 05:59 Intake Total 1628 1490 725 240 Output Total 2100 1501 150 200 Balance -2 -11 575 40 Objective : Exam - General General Appearance: Cooperative - GI/Abdominal Additional GI/Abdominal Exam Details: Patient has an incarcerated left inguinal hernia. The hernia is actually very tender to touch. Patient's abdomen soft nontender. Patient's been having bowel movements. Assessment and Plan - Assessment / Plan Additional Assessment/Plan Details: The pathophysiology of the inguinal hernia was discussed with the patient. Went over the surgical options with the patient. Went over the potential risks and complications of the surgery. Went over the benefits of surgery. The risk of incarceration and strangulation was discussed with the patient and if this happened he need immediate surgical repair. Otherwise, this be set up at his convenience.
[2016-12-22] MEDS ORDERED: LIDOCAINE W/ SODIUM BICARB 0.5 ML SYR ONE (11:32)
--- NOTE | 2016-12-22 11:32 | GEN.OPNOTE ---
Operative Note Surgery Date: 12/22/16 Preoperative Diagnosis: Incarcerated recurrent left inguinal hernia Postoperative Diagnosis: Incarcerated recurrent left inguinal hernia Procedure: Left inguinal herniorrhaphy with Prolene mesh plug Surgeon: Ishmael Gomez MD Anesthesia Provider: Antonio Hobson CRNA Anesthesia Type: Local, MAC Estimated Blood Loss (mL): 5 Fluids: Lactated Ringer's please see anesthesia notes in EMR. 2 g Ancef Pathology: Hernia sac sent Indications: Patient is acutely incarcerated recurrent left inguinal hernia Findings: Patient had an ischemic hernia sac Complications: None Operative Summary: Patient is brought in operant. Placed supine position. Given IV sedation. Prepped draped sterile fashion. Timeout performed per protocols. I then infiltrated 25 mL of 0.5 Marcaine in a titrated effect for local regional block. I did anesthetize up the ilioinguinal nerve at the edge of the iliac crest. I made a skin incision in the previous skin scar. Hemostased and left cautery dissection to subcutaneous tissue electrocautery I opened up the aponeurosis of the external oblique sharply. Put to him. Then Opened up through the External Ring We Use the Methadone Scissors. A Second the Spermatic Cord off the Floor Ilioinguinal Canal. Patient Had a Bulging Mass Just Medial to This. We Dissected This Free from the Subcutaneous Tissue. I believe this was actually some thickened hernia sac that had what appeared to be smiled ischemia. I opened up this hernia sac. This point became clear was hernia sac and not a loop of bowel. I she follows downtilt became normal in color and there is some fatty tissue coming up the hernia sac but attached to it. I then excised the discolored hernia sac using left cautery. Closed the hernia sac with 2-0 Vicryl contents running suture. Is able to reduce the hernia sac. The patient had a very small defect been most likely a couple millimeters in greatest diameter. Put a mesh plug into the defect and sewed this to the floor ilioinguinal can now using 0 Prolene suture remainder the floor appeared to be intact and no defects. Turned the spermatic cord since anatomical position. Closed the external oblique fascia using 2-0 Vicryl suture. I then infiltrated 20 mL of Exoprel for postoperative pain control the subcutaneous tissue. Closed the skin with 4-0 Monocryl contents running septic restitch. Steri-Strips applied sterile dressing applied. Patient tolerated procedure well is transferred recovery room stable condition. All counts were correct.
[2016-12-22] MEDS: QUEtiapine Tab 100 MG TAB PO SCH (20:32)
[2016-12-23 04:28] LABS: HEMATOCRIT 44.5 % (42.0-52.0); HEMOGLOBIN 15.3 g/dL (14.0-18.0); MEAN CORPUSCULAR HGB CONC 34.4 g/dL (33-37); MEAN CORPUSCULAR VOLUME 87.3 FL (80-90); MEAN PLATELET VOLUME 9.7 FL (7.4-12.2); RED BLOOD COUNT 5.1 10^6/uL (4.70-6.10)
[2016-12-23] MEDS: HYDROcodone-APAP 5 MG -325 MG TABLET PO PRN ×3 (04:31→12:00)
[2016-12-23 04:40] LABS: CALCIUM 8.5 mg/dL (8.7-10.7); SERUM ALBUMIN 3.1 g/dL (3.5-4.8)
[2016-12-23 07:09] VITALS: RESP 18
[2016-12-23] MEDS: LOSARTAN 50 MG TABLET PO SCH (08:32)
[2016-12-23] MEDS: TAMSULOSIN 0.4 MG CAPSULE PO SCH (08:32)
[2016-12-23] MEDS: FINASTERIDE 5 MG TABLET PO SCH (08:32)
[2016-12-23] MEDS: Metoprolol TARTRATE Tab 50 MG TAB PO SCH (08:32)
--- NOTE | 2016-12-23 08:40 | PDOC(PROG) ---
Subjective Pain Management: PO Whatley Catheter: No Flatus: Yes Diet: Regular Date and Time of Service: 12/23/2016 at 940 Interval History: Patient is doing very well. The pain that he had prior to surgery operation is totally resolved. He has no pain is incision now Objective : Data - Labs CBC and BMP: 12/23/16 04:10 12/23/16 04:10 Labs - Last 24 Hours: Laboratory Results 12/23/16 Range/Units 04:10 WBC 12.92 H (4.8-10.8) 10^3/uL RBC 5.10 (4.70-6.10) 10^6/uL Hgb 15.3 (14.0-18.0) g/dL Hct 44.5 (42.0-52.0) % MCV 87.3 (80-90) FL MCH 30.0 (27-31) PG MCHC 34.4 (33-37) g/dL RDW Std Deviation 45.4 (39-50) fL RDW Coeff of Mercedes 14.4 (11.5-14.5) % Plt Count 317 (140-350) 10*3/uL MPV 9.7 (7.4-12.2) FL Sodium 135 (135-145) meq/L Potassium 4.2 (3.8-5.2) meq/L Chloride 100 (98-112) meq/L Carbon Dioxide 28 (23-33) meq/L Anion Gap 7 (5-20) BUN 16 (7-22) mg/dL Creatinine 0.8 (0.70-1.50) mg/dL Estimated GFR (>60 ml/min/1.73m(2)) BUN/Creatinine Ratio 20.00 (6-20) Glucose 126 H (78-110) mg/dL Calculated Osmolality 282.0 (267-292) mOsm/kg Calcium 8.5 L (8.7-10.7) mg/dL Total Bilirubin 1.1 (0.3-1.2) mg/dL AST 46 (21-57) IU/L ALT 38 (21-72) IU/L Alkaline Phosphatase 63 (38-126) IU/L Total Protein 6.1 (6.1-8.0) g/dL Albumin 3.1 L (3.5-4.8) g/dL Globulin 3.0 (2.50-4.10) g/dL Albumin/Globulin Ratio 1.00 L (1.3-2.0) mg/g - Vital Signs Vital Signs and I&O: Vital Signs - Last Taken Temperature 98.2 F 12/23/16 07:09 Pulse Rate 73 12/23/16 07:09 Respiratory Rate 18 12/23/16 07:09 Blood Pressure 139/66 12/23/16 07:09 Pulse Ox 94 12/23/16 07:09 Intake and Output (24hr x 4 totals) 12/21/16 12/22/16 12/23/16 12/24/16 05:59 05:59 05:59 05:59 Intake Total 8048 178 6751 Output Total 5197 269 7840 Balance -11 575 2260 Objective : Exam - General General Appearance: No Acute Distress, Cooperative Assessment and Plan - Patient Problems (1) Incarcerated left inguinal hernia Current Visit: Yes Status: Acute Priority: High Diagnosis Date: 12/21/16 (2) Colon cancer Current Visit: Yes Status: Acute Qualifiers: Colon location: unspecified part of colon Qualified Description: Malignant neoplasm of colon, unspecified part of colon Qualifier Code(s): (C18.9) Malignant neoplasm of colon, unspecified - Assessment / Plan Additional Assessment/Plan Details: Patient is oxygen very well after his hernia repair. He is having no problems. He is stable from his colectomy. I think he can be discharged anytime Dr. Ramírez feels the patient is ready.
[2016-12-23 11:49] VITALS: TEMP 97.6
--- NOTE | 2016-12-23 13:25 | DCSUMMARY ---
Hospitalization Summary Admit Date: 12/12/16 Discharge Date: 12/23/16 Primary Diagnosis:: colon cancer status post bowel resection Secondary Diagnosis:: Bowel obstruction, acute on chronic Incarcerated left inguinal hernia Hospital Course: This very pleasant 81-year-old male who presented with colon obstruction with bowel back up to the small bowel actually. The patient had a colon resection was found to have adenocarcinoma. In addition, the patient ended up developing an incarcerated left inguinal hernia on the day prior to discharge. That was surgically repaired as well. During the hospital stay, the patient's course was complicated by delirium and probable mild dementia that may not be diagnosed yet. Further he had an ileus that took several days to resolve. He required electrolyte replacement for that , pain medications and nausea medicines, but as that improved significantly, he improved in terms of his mental status and physical condition as well. He did not require surgical intervention for the ileus. The patient's incision is healing well, is Steri-Stripped now. He will have home health monitor the wound as well as physical therapy monitoring the wound. No plans for chemotherapy and radiation therapy been made to date, and that can be addressed at his follow-up appointment. He really is not a candidate for such therapies anyway until he heals from a surgical standpoint first. In terms of the delirium, cleared up with some Seroquel and reorientation. The patient's was very instrumental in reorienting the patient frequently during the day. Patient's blood pressure remained stable through the hospital stay. The patient's diabetes was well controlled, and in fact he did not require insulin therapy to maintain his blood sugars below 180 during the hospital stay. At this time, we will actually hold his Lantus at the time of discharge. We reviewed the patient's medications prior to discharge and he does not want to be on simvastatin. Given some issues with dementia, at this time we felt may be a good idea to stop that medicine for now. He can always be resumed at a later date if necessary. Patient is mildly hypoxic, but chest x-ray was negative for significant atelectasis, although he did have atelectasis during the hospital stay. He did not have any evidence of urinary tract infection prior to discharge and his white blood cell count finally started to trend down. All that being said, I think he probably has some mild atelectasis that is causing hypoxia in a patient that is splinting due to abdominal pain. He will go home on 2 L per nasal cannula initially. Today, no completes of chest pain, no shortness breath, he states his pain is well-controlled caused a 5/10. The patient would like to go home. Patient has family members that we'll be assisting in the care including his daughters, and again home health will be arranged on Sunday with physical therapy at home as well. Assessment and Plan: 1. As per discharge assessments noted 2. Disposition: Patient is discharged home. 3. Condition on discharge, stable and improved. 4. Diet: regular diet 5. Activities: resume normal activities, no heavy lifting until cleared by surgery 6. Follow-Up: 1. Dr. Ma on the 2. Dr. Nobles in the next 7-10 days 7. Medications at the Time of Discharge: Home Medications Medication Instructions Recorded Confirmed Type Nifedipine [Nifedipine ER] 30 mg PO DAILY 05/10/14 12/12/16 History metFORMIN Tab [Glucophage Tab] 850 mg PO BID 05/10/14 12/12/16 History Blood Sugar Diagnostic [Glucose 1 each IN PRN strip 05/12/14 12/12/16 History Test Strip] Losartan Potassium 1 tab PO DAILY #90 tab 07/21/14 12/12/16 Clinic Metoprolol Tartrate 1 tab PO BID #180 tab 07/21/14 12/12/16 Clinic Aspirin 1 tab PO DAILY #30 tab 02/24/15 12/12/16 Clinic Tamsulosin HCl 1 cap PO QD #30 cap 02/24/15 12/12/16 Clinic Cholecalciferol (Vitamin D3) 1 cap PO QD #30 cap 07/05/15 12/12/16 Clinic [Vitamin D3] HYDROcodone/APAP 5/325 Tab [Embarrass 1 tab PO Q8H PRN #30 tab 12/23/16 Rx 5/325 Tab] Magnesium Hydroxide Susp [Milk Of 30 ml PO DAILY PRN #1 bottle 12/23/16 Rx Magnesia Susp] 8. Time, care, counseling and coordination of care for this discharge is greater than 30 minutes. Exam - Vitals Vital Signs: Vital Signs Vital Signs - Last Taken Temperature 97.6 F 12/23/16 11:47 Pulse Rate 62 12/23/16 11:47 Respiratory Rate 18 12/23/16 11:47 Blood Pressure 108/55 12/23/16 11:47 Pulse Ox 95 12/23/16 11:47 On 2 L per nasal cannula - General General Appearance: POSITIVE: No Acute Distress, Cooperative - Head Head Exam: POSITIVE: Atraumatic - Eye Eye Exam: POSITIVE: No Scleral Icterus - Respiratory Respiratory Exam: POSITIVE: Clear to Auscultation - Bilaterally, Breathing Non Labored - Cardiovascular Cardiovascular Exam: POSITIVE: RRR, No Murmur, No Clicks, No Gallops, No Rubs, No JVD - GI/Abdominal GI/Abdominal Exam: POSITIVE: Normal Bowel Sounds, Non Tender, Non Distended, Soft Additional GI/Abdominal Exam Details: Incision is clean, dry, intact, Steri-Strips in place Left groin incision is clean, dry, intact with dressing in place - Extremities Extremities Exam: POSITIVE: No Clubbing Present, No Edema Present, No Cyanosis Present - Neurological Neurological Exam: POSITIVE: Alert, Oriented x 3 (Significantly improved through the hospital stay.), Normal Gait, No Facial Droop, Speech Intact / Clear , Moves All Extremities Equally - Psychiatric Psychiatric Exam: POSITIVE: Normal Affect, Normal Mood Data Perinent Studies: Laboratory Results 12/12/16 12/13/16 12/13/16 Range/Units 16:30 04:37 16:08 WBC 14.23 H 20.36 H (4.8-10.8) 10^3/uL RBC 6.48 H 6.08 (4.70-6.10) 10^6/uL Hgb 18.8 H 17.9 (14.0-18.0) g/dL Hct 55.8 H 53.3 H (42.0-52.0) % MCV 86.1 87.7 (80-90) FL MCH 29.0 29.4 (27-31) PG MCHC 33.7 33.6 (33-37) g/dL RDW Std Deviation 47.3 48.4 (39-50) fL RDW Coeff of Mercedes 14.9 H 15.0 H (11.5-14.5) % Plt Count 230 223 (140-350) 10*3/uL MPV 10.0 10.2 (7.4-12.2) FL Immature Gran % (Auto) 0.3 (0-5) % Neut % (Auto) 84.2 H (50-80) % Lymph % (Auto) 4.9 L (10-50) % [place] % (Auto) 10.5 (5-15) % Eos % (Auto) 0 (0-8) % Baso % (Auto) 0.1 (0-1) % Immature Gran # (Auto) 0.06 10*3/UL Neut # (Auto) 17.14 10*3/UL Lymph # (Auto) 1.00 10*3/uL [place] # (Auto) 2.13 H (0.3-0.8) 10*3/UL Eos # (Auto) 0 10*3/UL Baso # (Auto) 0.03 10*3/UL Neutrophils % (Manual) 73 (50-80) % Band Neutrophils % 1 (0-10) % Lymphocytes % (Manual) 18 (10-50) % Monocytes % (Manual) 7 (0-12) % Eosinophils % (Manual) 1 (0-8) % Basophils % (Manual) 0 (0-1) % Metamyelocytes % 0 % Myelocytes % 0 % Promyelocytes % 0 % Blast Cells 0 (0-1) % WBC Morphology Comment See comments Normal morphology (NORM) Plt Morphology Comment Normal morphology Normal morphology (NORM) RBC Morph Comment Normal morphology Normal morphology (NORM) ABG pH 7.23 L (7.35-7.45) ABG pCO2 53 H (34-38) MMHG ABG pO2 70 (65-75) MMHG ABG HCO3 22 (22-26) ABG Total CO2 24 (23-27) MMOL/L ABG O2 Saturation 90 (90-100) % ABG Base Excess -5 L (-2-2) MMOL/L Calvin Test N FiO2 100% vapo Sodium 140 140 (135-145) meq/L Potassium 4.8 5.1 (3.8-5.2) meq/L Chloride 102 102 (98-112) meq/L Carbon Dioxide 27 28 (23-33) meq/L Anion Gap 11 10 (5-20) BUN 25 H 23 H (7-22) mg/dL Creatinine 1.2 1.0 (0.70-1.50) mg/dL Estimated GFR (>60 ml/min/1.73m(2)) BUN/Creatinine Ratio 20.83 H 23.00 H (6-20) Glucose 189 H 211 H (78-110) mg/dL Mean Blood Glucose mg/dL Hemoglobin A1c (4.2-6.0) % Calculated Osmolality 298.0 H 299.0 H (267-292) mOsm/kg Lactic Acid (0.70-2.10) MMOL/L Calcium 9.4 8.2 L (8.7-10.7) mg/dL Phosphorus (2.4-4.3) mg/dl Magnesium 1.9 (1.6-2.4) mg/dL Total Bilirubin 1.0 1.1 (0.3-1.2) mg/dL AST 41 65 H (21-57) IU/L ALT 29 25 (21-72) IU/L Alkaline Phosphatase 90 73 (38-126) IU/L Troponin I < 0.012 (< 0.040) ng/mL C-Reactive Protein 1.0 H (0.0-0.9) mg/dL Total Protein 7.8 6.6 (6.1-8.0) g/dL Albumin 4.2 3.5 (3.5-4.8) g/dL Globulin 3.6 3.2 (2.50-4.10) g/dL Albumin/Globulin Ratio 1.10 L 1.00 L (1.3-2.0) mg/g Amylase 68 (30-110) U/L Lipase < 10 L (23-300) IU/L Ur Collection Type Urine Color Urine Clarity (CLEAR) Urine pH (5.0-8.5) Ur Specific [place] (1.005-1.030) Urine Protein (NEG) mg/dl Urine Glucose (UA) (NEG) mg/dL Urine Ketones (NEG) Urine Occult Blood (NEG) Urine Nitrate (NEG) Urine Bilirubin (NEG) Urine Urobilinogen (0.2) EU/dL Ur Leukocyte Esterase (NEG) Urine RBC (NONE) /hpf Urine WBC (NONE) Ur Squamous Epith Cells (NONE) Ur Renal Epithelial Cell (NONE) Urine Crystals Urine Bacteria (NONE) Urine Casts (NONE) Urine Mucus (NONE) Urine Trichomonas (NONE) Urine Yeast (NONE) Ur Culture Indicated? Serum Alcohol < 10 (0-10) mg/dL 12/13/16 12/14/16 12/14/16 Range/Units 17:15 00:01 04:08 WBC 10.23 (4.8-10.8) 10^3/uL RBC 5.37 (4.70-6.10) 10^6/uL Hgb 16.0 (14.0-18.0) g/dL Hct 48.2 (42.0-52.0) % MCV 89.8 (80-90) FL MCH 29.8 (27-31) PG MCHC 33.2 (33-37) g/dL RDW Std Deviation 49.9 (39-50) fL RDW Coeff of Mercedes 15.2 H (11.5-14.5) % Plt Count 163 (140-350) 10*3/uL MPV 10.7 (7.4-12.2) FL Immature Gran % (Auto) 0.4 (0-5) % Neut % (Auto) 70.4 (50-80) % Lymph % (Auto) 11.2 (10-50) % [place] % (Auto) 17.9 H (5-15) % Eos % (Auto) 0 (0-8) % Baso % (Auto) 0.1 (0-1) % Immature Gran # (Auto) 0.04 10*3/UL Neut # (Auto) 7.20 10*3/UL Lymph # (Auto) 1.15 10*3/uL [place] # (Auto) 1.83 H (0.3-0.8) 10*3/UL Eos # (Auto) 0 10*3/UL Baso # (Auto) 0.01 10*3/UL Neutrophils % (Manual) (50-80) % Band Neutrophils % (0-10) % Lymphocytes % (Manual) (10-50) % Monocytes % (Manual) (0-12) % Eosinophils % (Manual) (0-8) % Basophils % (Manual) (0-1) % Metamyelocytes % % Myelocytes % % Promyelocytes % % Blast Cells (0-1) % WBC Morphology Comment Normal morphology (NORM) Plt Morphology Comment Normal morphology (NORM) RBC Morph Comment Normal morphology (NORM) ABG pH (7.35-7.45) ABG pCO2 (34-38) MMHG ABG pO2 (65-75) MMHG ABG HCO3 (22-26) ABG Total CO2 (23-27) MMOL/L ABG O2 Saturation (90-100) % ABG Base Excess (-2-2) MMOL/L Calvin Test FiO2 Sodium 141 (135-145) meq/L Potassium 4.5 (3.8-5.2) meq/L Chloride 106 (98-112) meq/L Carbon Dioxide 25 (23-33) meq/L Anion Gap 10 (5-20) BUN 20 (7-22) mg/dL Creatinine 0.8 (0.70-1.50) mg/dL Estimated GFR (>60 ml/min/1.73m(2)) BUN/Creatinine Ratio 25.00 H (6-20) Glucose 182 H (78-110) mg/dL Mean Blood Glucose mg/dL Hemoglobin A1c (4.2-6.0) % Calculated Osmolality 299.0 H (267-292) mOsm/kg Lactic Acid (0.70-2.10) MMOL/L Calcium 8.3 L (8.7-10.7) mg/dL Phosphorus (2.4-4.3) mg/dl Magnesium (1.6-2.4) mg/dL Total Bilirubin 1.4 H (0.3-1.2) mg/dL AST 54 (21-57) IU/L ALT 48 (21-72) IU/L Alkaline Phosphatase 36 L (38-126) IU/L Troponin I < 0.012 0.018 (< 0.040) ng/mL C-Reactive Protein (0.0-0.9) mg/dL Total Protein 5.4 L (6.1-8.0) g/dL Albumin 3.1 L (3.5-4.8) g/dL Globulin 2.3 L (2.50-4.10) g/dL Albumin/Globulin Ratio 1.30 (1.3-2.0) mg/g Amylase (30-110) U/L Lipase (23-300) IU/L Ur Collection Type Urine Color Urine Clarity (CLEAR) Urine pH (5.0-8.5) Ur Specific [place] (1.005-1.030) Urine Protein (NEG) mg/dl Urine Glucose (UA) (NEG) mg/dL Urine Ketones (NEG) Urine Occult Blood (NEG) Urine Nitrate (NEG) Urine Bilirubin (NEG) Urine Urobilinogen (0.2) EU/dL Ur Leukocyte Esterase (NEG) Urine RBC (NONE) /hpf Urine WBC (NONE) Ur Squamous Epith Cells (NONE) Ur Renal Epithelial Cell (NONE) Urine Crystals Urine Bacteria (NONE) Urine Casts (NONE) Urine Mucus (NONE) Urine Trichomonas (NONE) Urine Yeast (NONE) Ur Culture Indicated? Serum Alcohol (0-10) mg/dL 12/15/16 12/16/16 12/17/16 Range/Units 05:26 05:46 06:01 WBC 12.47 H 14.10 H 12.55 H (4.8-10.8) 10^3/uL RBC 5.18 5.55 5.44 (4.70-6.10) 10^6/uL Hgb 15.1 16.1 15.7 (14.0-18.0) g/dL Hct 46.4 49.4 47.7 (42.0-52.0) % MCV 89.6 89.0 87.7 (80-90) FL MCH 29.2 29.0 28.9 (27-31) PG MCHC 32.5 L 32.6 L 32.9 L (33-37) g/dL RDW Std Deviation 49.1 47.6 44.9 (39-50) fL RDW Coeff of Mercedes 15.0 H 14.7 H 14.1 (11.5-14.5) % Plt Count 151 181 195 (140-350) 10*3/uL MPV 10.8 10.8 10.1 (7.4-12.2) FL Immature Gran % (Auto) 0.2 0.5 (0-5) % Neut % (Auto) 70.6 69.2 (50-80) % Lymph % (Auto) 13.6 14.7 (10-50) % [place] % (Auto) 14.6 12.9 (5-15) % Eos % (Auto) 0.8 2.5 (0-8) % Baso % (Auto) 0.2 0.2 (0-1) % Immature Gran # (Auto) 0.03 0.06 10*3/UL Neut # (Auto) 9.95 8.69 10*3/UL Lymph # (Auto) 1.92 1.84 10*3/uL [place] # (Auto) 2.06 H 1.62 H (0.3-0.8) 10*3/UL Eos # (Auto) 0.11 0.31 10*3/UL Baso # (Auto) 0.03 0.03 10*3/UL Neutrophils % (Manual) 80 (50-80) % Band Neutrophils % 0 (0-10) % Lymphocytes % (Manual) 15 (10-50) % Monocytes % (Manual) 5 (0-12) % Eosinophils % (Manual) 0 (0-8) % Basophils % (Manual) 0 (0-1) % Metamyelocytes % Not Reportable % Myelocytes % Not Reportable % Promyelocytes % Not Reportable % Blast Cells Not Reportable (0-1) % WBC Morphology Comment Normal morphology Normal morphology Normal morphology (NORM) Plt Morphology Comment Normal morphology Normal morphology Normal morphology (NORM) RBC Morph Comment Normal morphology Normal morphology Normal morphology ( NORM) ABG pH (7.35-7.45) ABG pCO2 (34-38) MMHG ABG pO2 (65-75) MMHG ABG HCO3 (22-26) ABG Total CO2 (23-27) MMOL/L ABG O2 Saturation (90-100) % ABG Base Excess (-2-2) MMOL/L Calvin Test FiO2 Sodium 139 138 134 L (135-145) meq/L Potassium 4.5 4.3 4.0 (3.8-5.2) meq/L Chloride 107 104 99 (98-112) meq/L Carbon Dioxide 26 27 30 (23-33) meq/L Anion Gap 6 7 5 (5-20) BUN 20 19 14 (7-22) mg/dL Creatinine 0.7 0.7 0.7 (0.70-1.50) mg/dL Estimated GFR (>60 ml/min/1.73m(2)) BUN/Creatinine Ratio 28.57 H 27.14 H 20.00 (6-20) Glucose 158 H 119 H 140 H (78-110) mg/dL Mean Blood Glucose 152.095 mg/dL Hemoglobin A1c 7.15 H (4.2-6.0) % Calculated Osmolality 293.0 H 288.0 280.0 (267-292) mOsm/kg Lactic Acid (0.70-2.10) MMOL/L Calcium 8.4 L 8.5 L 7.9 L (8.7-10.7) mg/dL Phosphorus (2.4-4.3) mg/dl Magnesium (1.6-2.4) mg/dL Total Bilirubin 0.9 (0.3-1.2) mg/dL AST 39 (21-57) IU/L ALT 49 (21-72) IU/L Alkaline Phosphatase 42 (38-126) IU/L Troponin I (< 0.040) ng/mL C-Reactive Protein (0.0-0.9) mg/dL Total Protein 5.4 L (6.1-8.0) g/dL Albumin 2.9 L (3.5-4.8) g/dL Globulin 2.5 (2.50-4.10) g/dL Albumin/Globulin Ratio 1.10 L (1.3-2.0) mg/g Amylase (30-110) U/L Lipase (23-300) IU/L Ur Collection Type Urine Color Urine Clarity (CLEAR) Urine pH (5.0-8.5) Ur Specific [place] (1.005-1.030) Urine Protein (NEG) mg/dl Urine Glucose (UA) (NEG) mg/dL Urine Ketones (NEG) Urine Occult Blood (NEG) Urine Nitrate (NEG) Urine Bilirubin (NEG) Urine Urobilinogen (0.2) EU/dL Ur Leukocyte Esterase (NEG) Urine RBC (NONE) /hpf Urine WBC (NONE) Ur Squamous Epith Cells (NONE) Ur Renal Epithelial Cell (NONE) Urine Crystals Urine Bacteria (NONE) Urine Casts (NONE) Urine Mucus (NONE) Urine Trichomonas (NONE) Urine Yeast (NONE) Ur Culture Indicated? Serum Alcohol (0-10) mg/dL 12/18/16 12/18/16 12/19/16 Range/Units 05:16 17:10 04:28 WBC 11.77 H (4.8-10.8) 10^3/uL RBC 5.44 (4.70-6.10) 10^6/uL Hgb 15.9 (14.0-18.0) g/dL Hct 47.2 (42.0-52.0) % MCV 86.8 (80-90) FL MCH 29.2 (27-31) PG MCHC 33.7 (33-37) g/dL RDW Std Deviation 44.3 (39-50) fL RDW Coeff of Mercedes 13.9 (11.5-14.5) % Plt Count 189 (140-350) 10*3/uL MPV 9.9 (7.4-12.2) FL Immature Gran % (Auto) 0.6 (0-5) % Neut % (Auto) 63.0 (50-80) % Lymph % (Auto) 16.7 (10-50) % [place] % (Auto) 16.6 H (5-15) % Eos % (Auto) 2.6 (0-8) % Baso % (Auto) 0.5 (0-1) % Immature Gran # (Auto) 0.07 10*3/UL Neut # (Auto) 7.42 10*3/UL Lymph # (Auto) 1.96 10*3/uL [place] # (Auto) 1.95 H (0.3-0.8) 10*3/UL Eos # (Auto) 0.31 10*3/UL Baso # (Auto) 0.06 10*3/UL Neutrophils % (Manual) (50-80) % Band Neutrophils % (0-10) % Lymphocytes % (Manual) (10-50) % Monocytes % (Manual) (0-12) % Eosinophils % (Manual) (0-8) % Basophils % (Manual) (0-1) % Metamyelocytes % % Myelocytes % % Promyelocytes % % Blast Cells (0-1) % WBC Morphology Comment Normal morphology (NORM) Plt Morphology Comment Normal morphology (NORM) RBC Morph Comment Normal morphology (NORM) ABG pH (7.35-7.45) ABG pCO2 (34-38) MMHG ABG pO2 (65-75) MMHG ABG HCO3 (22-26) ABG Total CO2 (23-27) MMOL/L ABG O2 Saturation (90-100) % ABG Base Excess (-2-2) MMOL/L Calvin Test FiO2 Sodium 134 L 134 L 137 (135-145) meq/L Potassium 4.0 4.2 4.0 (3.8-5.2) meq/L Chloride 99 96 L 99 (98-112) meq/L Carbon Dioxide 30 29 31 (23-33) meq/L Anion Gap 5 9 7 (5-20) BUN 10 9 9 (7-22) mg/dL Creatinine 0.7 0.6 L 0.6 L (0.70-1.50) mg/dL Estimated GFR 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 Operator 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 Operator (>60 ml/min/1.73m(2)) BUN/Creatinine Ratio 14.28 15.00 15.00 (6-20) Glucose 125 H 146 H 143 H (78-110) mg/dL Mean Blood Glucose mg/dL Hemoglobin A1c (4.2-6.0) % Calculated Osmolality 277.0 279.0 284.0 (267-292) mOsm/kg Lactic Acid (0.70-2.10) MMOL/L Calcium 8.3 L 8.6 L 8.4 L (8.7-10.7) mg/dL Phosphorus 3.2 4.6 H 3.8 (2.4-4.3) mg/dl Magnesium 1.7 2.1 1.9 (1.6-2.4) mg/dL Total Bilirubin 1.6 H (0.3-1.2) mg/dL AST 50 (21-57) IU/L ALT 53 (21-72) IU/L Alkaline Phosphatase 51 (38-126) IU/L Troponin I (< 0.040) ng/mL C-Reactive Protein (0.0-0.9) mg/dL Total Protein 5.4 L (6.1-8.0) g/dL Albumin 2.8 L (3.5-4.8) g/dL Globulin 2.6 (2.50-4.10) g/dL Albumin/Globulin Ratio 1.00 L (1.3-2.0) mg/g Amylase (30-110) U/L Lipase (23-300) IU/L Ur Collection Type Urine Color Urine Clarity (CLEAR) Urine pH (5.0-8.5) Ur Specific [place] (1.005-1.030) Urine Protein (NEG) mg/dl Urine Glucose (UA) (NEG) mg/dL Urine Ketones (NEG) Urine Occult Blood (NEG) Urine Nitrate (NEG) Urine Bilirubin (NEG) Urine Urobilinogen (0.2) EU/dL Ur Leukocyte Esterase (NEG) Urine RBC (NONE) /hpf Urine WBC (NONE) Ur Squamous Epith Cells (NONE) Ur Renal Epithelial Cell (NONE) Urine Crystals Urine Bacteria (NONE) Urine Casts (NONE) Urine Mucus (NONE) Urine Trichomonas (NONE) Urine Yeast (NONE) Ur Culture Indicated? Serum Alcohol (0-10) mg/dL 0412/20/16 12/21/16 Range/Units 10:08 13:00 04:15 WBC 12.57 H 11.61 H (4.8-10.8) 10^3/uL RBC 5.49 5.61 (4.70-6.10) 10^6/uL Hgb 16.1 16.3 (14.0-18.0) g/dL Hct 47.7 49.1 (42.0-52.0) % MCV 86.9 87.5 (80-90) FL MCH 29.3 29.1 (27-31) PG MCHC 33.8 33.2 (33-37) g/dL RDW Std Deviation 45.2 46.1 (39-50) fL RDW Coeff of Mercedes 14.2 14.4 (11.5-14.5) % Plt Count 303 336 (140-350) 10*3/uL MPV 9.7 10.3 (7.4-12.2) FL Immature Gran % (Auto) 0.9 (0-5) % Neut % (Auto) 56.6 (50-80) % Lymph % (Auto) 19.4 (10-50) % [place] % (Auto) 17.1 H (5-15) % Eos % (Auto) 5.8 (0-8) % Baso % (Auto) 0.2 (0-1) % Immature Gran # (Auto) 0.10 10*3/UL Neut # (Auto) 6.58 10*3/UL Lymph # (Auto) 2.25 10*3/uL [place] # (Auto) 1.99 H (0.3-0.8) 10*3/UL Eos # (Auto) 0.67 10*3/UL Baso # (Auto) 0.02 10*3/UL Neutrophils % (Manual) 84 H (50-80) % Band Neutrophils % 0 (0-10) % Lymphocytes % (Manual) 10 (10-50) % Monocytes % (Manual) 5 (0-12) % Eosinophils % (Manual) 1 (0-8) % Basophils % (Manual) 0 (0-1) % Metamyelocytes % Not Reportable % Myelocytes % Not Reportable % Promyelocytes % Not Reportable % Blast Cells Not Reportable (0-1) % WBC Morphology Comment Normal morphology Normal morphology (NORM) Plt Morphology Comment Normal morphology Normal morphology (NORM) RBC Morph Comment Normal morphology Normal morphology (NORM) ABG pH (7.35-7.45) ABG pCO2 (34-38) MMHG ABG pO2 (65-75) MMHG ABG HCO3 (22-26) ABG Total CO2 (23-27) MMOL/L ABG O2 Saturation (90-100) % ABG Base Excess (-2-2) MMOL/L Calvin Test FiO2 Sodium 136 137 (135-145) meq/L Potassium 4.1 4.7 (3.8-5.2) meq/L Chloride 99 99 (98-112) meq/L Carbon Dioxide 28 29 (23-33) meq/L Anion Gap 9 9 (5-20) BUN 13 12 (7-22) mg/dL Creatinine 0.7 0.7 (0.70-1.50) mg/dL Estimated GFR (>60 ml/min/1.73m(2)) BUN/Creatinine Ratio 18.57 17.14 (6-20) Glucose 127 H 130 H (78-110) mg/dL Mean Blood Glucose mg/dL Hemoglobin A1c (4.2-6.0) % Calculated Osmolality 283.0 285.0 (267-292) mOsm/kg Lactic Acid < 0.5 L (0.70-2.10) MMOL/L Calcium 8.5 L 8.5 L (8.7-10.7) mg/dL Phosphorus 3.4 (2.4-4.3) mg/dl Magnesium 2.3 2.1 (1.6-2.4) mg/dL Total Bilirubin 1.3 H (0.3-1.2) mg/dL AST 37 (21-57) IU/L ALT 45 (21-72) IU/L Alkaline Phosphatase 64 (38-126) IU/L Troponin I (< 0.040) ng/mL C-Reactive Protein (0.0-0.9) mg/dL Total Protein 6.5 (6.1-8.0) g/dL Albumin 3.4 L (3.5-4.8) g/dL Globulin 3.1 (2.50-4.10) g/dL Albumin/Globulin Ratio 1.00 L (1.3-2.0) mg/g Amylase (30-110) U/L Lipase (23-300) IU/L Ur Collection Type Cath specimen Urine Color Yellow Urine Clarity Clear (CLEAR) Urine pH 7.0 (5.0-8.5) Ur Specific [place] 1.015 (1.005-1.030) Urine Protein Negative (NEG) mg/dl Urine Glucose (UA) Negative (NEG) mg/dL Urine Ketones Negative (NEG) Urine Occult Blood Trace-intact H (NEG) Urine Nitrate Negative (NEG) Urine Bilirubin Negative (NEG) Urine Urobilinogen 0.2 (0.2) EU/dL Ur Leukocyte Esterase Negative (NEG) Urine RBC 1-3 (NONE) /hpf Urine WBC 0-1 (NONE) Ur Squamous Epith Cells Rare (NONE) Ur Renal Epithelial Cell None (NONE) Urine Crystals None Urine Bacteria None (NONE) Urine Casts None (NONE) Urine Mucus Few (NONE) Urine Trichomonas None (NONE) Urine Yeast None (NONE) Ur Culture Indicated? Culture not set Serum Alcohol (0-10) mg/dL 12/23/16 Range/Units 04:10 WBC 12.92 H (4.8-10.8) 10^3/uL RBC 5.10 (4.70-6.10) 10^6/uL Hgb 15.3 (14.0-18.0) g/dL Hct 44.5 (42.0-52.0) % MCV 87.3 (80-90) FL MCH 30.0 (27-31) PG MCHC 34.4 (33-37) g/dL RDW Std Deviation 45.4 (39-50) fL RDW Coeff of Mercedes 14.4 (11.5-14.5) % Plt Count 317 (140-350) 10*3/uL MPV 9.7 (7.4-12.2) FL Immature Gran % (Auto) (0-5) % Neut % (Auto) (50-80) % Lymph % (Auto) (10-50) % [place] % (Auto) (5-15) % Eos % (Auto) (0-8) % Baso % (Auto) (0-1) % Immature Gran # (Auto) 10*3/UL Neut # (Auto) 10*3/UL Lymph # (Auto) 10*3/uL [place] # (Auto) (0.3-0.8) 10*3/UL Eos # (Auto) 10*3/UL Baso # (Auto) 10*3/UL Neutrophils % (Manual) (50-80) % Band Neutrophils % (0-10) % Lymphocytes % (Manual) (10-50) % Monocytes % (Manual) (0-12) % Eosinophils % (Manual) (0-8) % Basophils % (Manual) (0-1) % Metamyelocytes % % Myelocytes % % Promyelocytes % % Blast Cells (0-1) % WBC Morphology Comment (NORM) Plt Morphology Comment (NORM) RBC Morph Comment (NORM) ABG pH (7.35-7.45) ABG pCO2 (34-38) MMHG ABG pO2 (65-75) MMHG ABG HCO3 (22-26) ABG Total CO2 (23-27) MMOL/L ABG O2 Saturation (90-100) % ABG Base Excess (-2-2) MMOL/L Calvin Test FiO2 Sodium 135 (135-145) meq/L Potassium 4.2 (3.8-5.2) meq/L Chloride 100 (98-112) meq/L Carbon Dioxide 28 (23-33) meq/L Anion Gap 7 (5-20) BUN 16 (7-22) mg/dL Creatinine 0.8 (0.70-1.50) mg/dL Estimated GFR (>60 ml/min/1.73m(2)) BUN/Creatinine Ratio 20.00 (6-20) Glucose 126 H (78-110) mg/dL Mean Blood Glucose mg/dL Hemoglobin A1c (4.2-6.0) % Calculated Osmolality 282.0 (267-292) mOsm/kg Lactic Acid (0.70-2.10) MMOL/L Calcium 8.5 L (8.7-10.7) mg/dL Phosphorus (2.4-4.3) mg/dl Magnesium (1.6-2.4) mg/dL Total Bilirubin 1.1 (0.3-1.2) mg/dL AST 46 (21-57) IU/L ALT 38 (21-72) IU/L Alkaline Phosphatase 63 (38-126) IU/L Troponin I (< 0.040) ng/mL C-Reactive Protein (0.0-0.9) mg/dL Total Protein 6.1 (6.1-8.0) g/dL Albumin 3.1 L (3.5-4.8) g/dL Globulin 3.0 (2.50-4.10) g/dL Albumin/Globulin Ratio 1.00 L (1.3-2.0) mg/g Amylase (30-110) U/L Lipase (23-300) IU/L Ur Collection Type Urine Color Urine Clarity (CLEAR) Urine pH (5.0-8.5) Ur Specific [place] (1.005-1.030) Urine Protein (NEG) mg/dl Urine Glucose (UA) (NEG) mg/dL Urine Ketones (NEG) Urine Occult Blood (NEG) Urine Nitrate (NEG) Urine Bilirubin (NEG) Urine Urobilinogen (0.2) EU/dL Ur Leukocyte Esterase (NEG) Urine RBC (NONE) /hpf Urine WBC (NONE) Ur Squamous Epith Cells (NONE) Ur Renal Epithelial Cell (NONE) Urine Crystals Urine Bacteria (NONE) Urine Casts (NONE) Urine Mucus (NONE) Urine Trichomonas (NONE) Urine Yeast (NONE) Ur Culture Indicated? Serum Alcohol (0-10) mg/dL Patient Problems - Patient Problem List (1) Colon cancer Current Visit: Yes Status: Acute Qualifiers: Colon location: unspecified part of colon Qualified Description: Malignant neoplasm of colon, unspecified part of colon Qualifier Code(s): (C18.9) Malignant neoplasm of colon, unspecified (2) Incarcerated left inguinal hernia Current Visit: Yes Status: Acute Diagnosis Date: 12/21/16 Priority: High (3) Cecum mass Current Visit: Yes Status: Acute Diagnosis Date: 12/12/16 Priority: High (4) Diabetes Current Visit: Yes Status: Acute Qualifiers: Diabetes mellitus type: type 2 Diabetes mellitus complication status: without complication Diabetes mellitus assisted insulin use: without termite control servicer use Qualified Description: Type 2 diabetes mellitus without complication, without long-term current use of insulin Qualifier Code(s): (E11.9) Type 2 diabetes mellitus without complications (5) Hypertension Current Visit: Yes Status: Chronic Qualifiers: Hypertension type: essential hypertension Qualified Description: Essential hypertension Qualifier Code(s): (I10) Essential (primary) hypertension (6) Cognitive impairment Current Visit: Yes Status: Suspected
[2016-12-23] MEDS ORDERED: ACETAMINOPHEN 325 MG TABLET PO PRN (14:01)
--- NOTE | 2016-12-23 14:04 | OTI REPORT ---
Thank you for the referral of Madi Ayala. He was seen on 12/21/16 for an occupational therapy inpatient evaluation secondary to weakness following abdominal surgery. SUBJECTIVE: The patient is an 81-year-old male who is being seen secondary to having a pretty intense stomach surgery. The patient had cancer between the small and large intestine and is approximately eight days past his initial admittance date. The patient's family reports that they have noticed some cognitive changes with the patient as well as a definite decrease in physical function; they state he is very weak compared to normal. The patient's and daughter report that typically Madi is very active; he likes to johnson and fish. Prior to admission he was driving and did almost everything and anything without any difficulties. The patient was very independent with ADLs and was able to complete showers and in home mobility without difficulty. PAST MEDICAL HISTORY: Past medical history can be found in the patient's medical record. OBJECTIVE FINDINGS: Objective findings: The patient was sitting in chair upon the therapist's arrival. Pain: The patient reports that he does have pain on both sides of his stomach incision. Range of motion: The patient demonstrated 140 degrees of shoulder flexion, 120 degrees of shoulder abduction, and limited rotations. Strength: Upper extremity strength for shoulder flexion was 4/5, extension was 4 +/5, elbow flexion/extension was 4/5, and wrist flexion/extension was 4/5. Transfers: The patient was able to transfer from sit to stand with contact guard assist for balance. Activities of daily living: The patient was able to dress lower extremities with min assist. The patient was able to dress upper extremities independently after set up. The patient is able to feed himself. Cognition: The patient did confuse himself with some of the questions today. He was alert and oriented x2. Balance: The patient required min assist in the bathroom secondary to balance difficulties. He is having difficulty coordinating how to use a walker. We did do this without any assistive device; however, the patient does fatigue quite easily. ASSESSMENT: Problem List: Decreased balance Decreased strength Decreased cognitive abilities Decreased abilities to complete activities of daily living Short-Term Goals: To be met by discharge from inpatient: Patient will be able to dress self independently including set up. Patient will be able to complete a shower independently while sitting on a chair. Patient will improve upper extremity strength to 4+/5 throughout. Patient will be able to complete toilet transfer independently and safely. Patient will improve activity tolerance in order to complete functional activities and exercise for a minimum of 20 minutes before fatiguing. Long-Term Goals: To be met following discharge from inpatient: Patient will be safe and independent to return home, demonstrating independence with all activities of daily living and functional transfers. TREATMENT PLAN: Patient will be seen B.I.D during the week and one time per day over the weekend as an inpatient to address the above goals and objectives. INITIAL TREATMENT: Treatment today consisted of the initial evaluation followed by the patient working on dressing skills; he needed min assist for lower extremities and he was independent after set up with upper extremities. He stood at the sink and performed hygiene activities with min assist for balance. Downstairs in therapy we worked on strengthening that did not strain that abdominal region including biceps curls followed by wrist pronation/supination and wrist flexion/ extension x1 minute each bilaterally. COLEMAN
== END 2016-12-23 15:05 | disposition home or self-care (01) | DRG 330 ==
LOC: ER 16:05 → MED/SURG 18:55 → OPS 12-13 10:54 → MED/SURG 12-13 15:22 → ICU 12-13 16:22 → MED/SURG 12-14 11:44 → OPS 12-22 10:07 → MED/SURG 12-22 12:03
PROVIDERS: ADMIT Internal Medicine; ATTEND Internal Medicine
PROC: 0FT40ZZ Resection of Gallbladder, Open Approach (ICD-10-PCS; 2016-12-13)
PROC: 0FB10ZX Excision of Right Lobe Liver, Open Approach, Diagnostic (ICD-10-PCS; 2016-12-13)
PROC: 0D1B0ZH Bypass Ileum to Cecum, Open Approach (ICD-10-PCS; 2016-12-13)
PROC: 0DTF0ZZ Resection of Right Large Intestine, Open Approach (ICD-10-PCS; principal; 2016-12-13 12:00)
PROC: 0YU60JZ Supplement Left Inguinal Region with Synthetic Substitute, Open Approach (ICD-10-PCS; 2016-12-22)
DX: K56.69 Other intestinal obstruction (principal); K63.89 Other specified diseases of intestine; C18.0 Malignant neoplasm of cecum; K91.3 Postprocedural intestinal obstruction; K80.20 Calculus of gallbladder without cholecystitis without obstruction; K76.9 Liver disease, unspecified; K40.91 Unilateral inguinal hernia, without obstruction or gangrene, recurrent; E11.9 Type 2 diabetes mellitus without complications; I10 Essential (primary) hypertension; G31.84 Mild cognitive impairment of uncertain or unknown etiology
CPT/HCPCS: 36415; 36600; 71010; 74020; 74022; 74177; 76705; 80048; 80053; 80320; 81001; 81003; 82150; 82803; 82948; 83036; 83605; 83690; 83735; 84100; 84484; 85007; 85025; 85027; 86140; 93005; 93010; 93701; 94150; 94640; 94660; 94761; 96361; 96374; 96375; 97110; 97161; 97166; 97530; 99285; A4216; J0330; J0690; J0780; J1335; J1630; J1940; J2001; J2250; J2270; J2370; J2405; J2765; J3010; J3475; J3490; J7030; J7040; J7050; J7120; J7620

== ENCOUNTER → 2017-01-01 | Outpatient (CLI) | payer OTHER, MEDICARE | LOC: MMPC 11:11 | DX: E11.9 Type 2 diabetes mellitus without complications (principal); N40.0 Benign prostatic hyperplasia without lower urinary tract symptoms; I10 Essential (primary) hypertension; I25.10 Atherosclerotic heart disease of native coronary artery without angina pectoris; E55.9 Vitamin D deficiency, unspecified | CPT/HCPCS: 99213 ==

== ENCOUNTER → 2017-01-04 | Outpatient (CLI) | payer OTHER, MEDICARE | LOC: MMPC 11:11 | PROVIDERS: ATTEND Surgery | DX: C18.2 Malignant neoplasm of ascending colon (principal); K40.90 Unilateral inguinal hernia, without obstruction or gangrene, not specified as recurrent; Z90.49 Acquired absence of other specified parts of digestive tract ==

== ENCOUNTER → 2017-01-22 | Outpatient (CLI) | payer OTHER, MEDICARE | LOC: MMPC 11:11 | DX: I25.10 Atherosclerotic heart disease of native coronary artery without angina pectoris (principal); C18.2 Malignant neoplasm of ascending colon; I10 Essential (primary) hypertension; I63.9 Cerebral infarction, unspecified; N40.0 Benign prostatic hyperplasia without lower urinary tract symptoms; L40.9 Psoriasis, unspecified; E55.9 Vitamin D deficiency, unspecified; E11.9 Type 2 diabetes mellitus without complications; Z79.4 Long term (current) use of insulin | CPT/HCPCS: 99213; G0463 ==

== ENCOUNTER → 2017-01-23 | Outpatient (CLI) | payer OTHER, MEDICARE | LOC: MMPC 11:11 | PROVIDERS: ATTEND Surgery | DX: C18.2 Malignant neoplasm of ascending colon (principal); K40.90 Unilateral inguinal hernia, without obstruction or gangrene, not specified as recurrent ==

== ENCOUNTER → 2017-01-31 | Outpatient (CLI) | payer OTHER, MEDICARE ==
[2017-01-31 11:44] LABS: BUN/CREATININE RATIO 21.11 (6-20); CALCIUM 9.4 mg/dL (8.7-10.7); SERUM ALBUMIN 4.2 g/dL (3.5-4.8)
[2017-01-31 11:56] LABS: BASOPHILS # (AUTO) 0.05 10*3/UL; BASOPHILS % (AUTO) 0.5 % (0-1); EOSINOPHILS # (AUTO) 0.14 10*3/UL; EOSINOPHILS % (AUTO) 1.4 % (0-8); HEMATOCRIT 44.7 % (42.0-52.0); HEMOGLOBIN 15.2 g/dL (14.0-18.0); LYMPHOCYTES # (AUTO) 2.77 10*3/uL; MEAN CORPUSCULAR HEMOGLOBIN 29.1 PG (27-31); MEAN CORPUSCULAR VOLUME 85.5 FL (80-90); MEAN PLATELET VOLUME 9.9 FL (7.4-12.2); MONOCYTES # (AUTO) 1.08 10*3/UL (0.3-0.8); MONOCYTES % (AUTO) 10.8 % (5-15); NEUTROPHILS # (AUTO) 5.88 10*3/UL; NEUTROPHILS % (AUTO) 59.1 % (50-80); RED BLOOD COUNT 5.23 10^6/uL (4.70-6.10)
[2017-01-31 12:03] LABS: PLATELET MORPHOLOGY COMMENT NORMAL MORPHOLOGY (NORM); RBC MORPHOLOGY COMMENT NORMAL MORPHOLOGY (NORM); WBC MORPHOLOGY COMMENT NORMAL MORPHOLOGY (NORM)
== END ==
LOC: MOB LAB 09:44
PROVIDERS: ATTEND Internal Medicine Medical Oncology
DX: C18.2 Malignant neoplasm of ascending colon (principal); I10 Essential (primary) hypertension
CPT/HCPCS: 36415; 80053; 82378; 84443; 85025

== ENCOUNTER → 2017-02-19 | Outpatient (CLI) | payer OTHER, MEDICARE ==
[2017-02-19 09:26] LABS: BUN/CREATININE RATIO 21.25 (6-20); CALCIUM 9.2 mg/dL (8.7-10.7); SERUM ALBUMIN 4.1 g/dL (3.5-4.8)
[2017-02-19 09:30] LABS: BASOPHILS # (AUTO) 0.04 10*3/UL; BASOPHILS % (AUTO) 0.5 % (0-1); EOSINOPHILS % (AUTO) 1.3 % (0-8); HEMATOCRIT 43.5 % (42.0-52.0); HEMOGLOBIN 14.5 g/dL (14.0-18.0); LYMPHOCYTES # (AUTO) 2.59 10*3/uL; MEAN CORPUSCULAR HEMOGLOBIN 28.8 PG (27-31); MEAN CORPUSCULAR HGB CONC 33.3 g/dL (33-37); MEAN CORPUSCULAR VOLUME 86.3 FL (80-90); MEAN PLATELET VOLUME 9.9 FL (7.4-12.2); MONOCYTES # (AUTO) 0.82 10*3/UL (0.3-0.8); MONOCYTES % (AUTO) 10.4 % (5-15); NEUTROPHILS # (AUTO) 4.29 10*3/UL; NEUTROPHILS % (AUTO) 54.7 % (50-80); RED BLOOD COUNT 5.04 10^6/uL (4.70-6.10)
[2017-02-19 09:31] LABS: PLATELET MORPHOLOGY COMMENT NORMAL MORPHOLOGY (NORM); RBC MORPHOLOGY COMMENT NORMAL MORPHOLOGY (NORM); WBC MORPHOLOGY COMMENT NORMAL MORPHOLOGY (NORM)
== END ==
LOC: LAB 08:53
PROVIDERS: ATTEND Internal Medicine Medical Oncology
DX: C18.9 Malignant neoplasm of colon, unspecified (principal)
CPT/HCPCS: 36415; 80053; 82378; 85025

== ENCOUNTER → 2017-02-20 | Outpatient (CLI) | payer OTHER, MEDICARE | LOC: MMPC 11:11 | DX: C18.2 Malignant neoplasm of ascending colon (principal); I25.10 Atherosclerotic heart disease of native coronary artery without angina pectoris; I67.9 Cerebrovascular disease, unspecified; I10 Essential (primary) hypertension; N40.0 Benign prostatic hyperplasia without lower urinary tract symptoms; L40.9 Psoriasis, unspecified; E55.9 Vitamin D deficiency, unspecified; L57.0 Actinic keratosis; E11.9 Type 2 diabetes mellitus without complications | CPT/HCPCS: 99213; G0463 ==

== ENCOUNTER → 2017-03-02 | Outpatient (CLI) | payer OTHER, MEDICARE ==
[2017-03-02 13:28] LABS: BASOPHILS # (AUTO) 0.03 10*3/UL; BASOPHILS % (AUTO) 0.3 % (0-1); EOSINOPHILS # (AUTO) 0.11 10*3/UL; EOSINOPHILS % (AUTO) 1.2 % (0-8); HEMATOCRIT 41.7 % (42.0-52.0); HEMOGLOBIN 13.9 g/dL (14.0-18.0); LYMPHOCYTES # (AUTO) 2.18 10*3/uL; MEAN CORPUSCULAR HEMOGLOBIN 29.1 PG (27-31); MEAN CORPUSCULAR HGB CONC 33.3 g/dL (33-37); MEAN CORPUSCULAR VOLUME 87.4 FL (80-90); MEAN PLATELET VOLUME 9.8 FL (7.4-12.2); MONOCYTES # (AUTO) 0.93 10*3/UL (0.3-0.8); MONOCYTES % (AUTO) 10.5 % (5-15); NEUTROPHILS # (AUTO) 5.57 10*3/UL; NEUTROPHILS % (AUTO) 63.1 % (50-80); RED BLOOD COUNT 4.77 10^6/uL (4.70-6.10)
[2017-03-02 13:30] LABS: PLATELET MORPHOLOGY COMMENT NORMAL MORPHOLOGY (NORM); RBC MORPHOLOGY COMMENT NORMAL MORPHOLOGY (NORM); WBC MORPHOLOGY COMMENT NORMAL MORPHOLOGY (NORM)
[2017-03-02 13:36] LABS: BUN/CREATININE RATIO 16.66 (6-20); CALCIUM 9.1 mg/dL (8.7-10.7); SERUM ALBUMIN 4.4 g/dL (3.5-4.8)
== END ==
LOC: LAB 13:02
PROVIDERS: ATTEND Dermatology
DX: C18.9 Malignant neoplasm of colon, unspecified (principal)
CPT/HCPCS: 36415; 80053; 82378; 85025

== ENCOUNTER → 2017-03-20 | Outpatient (CLI) | payer OTHER, MEDICARE | LOC: LAB 13:41 | PROVIDERS: ATTEND Urology | DX: N40.1 Benign prostatic hyperplasia with lower urinary tract symptoms (principal) | CPT/HCPCS: 36415; 84153 ==

== ENCOUNTER → 2017-04-19 | Outpatient (CLI) | payer OTHER, MEDICARE ==
--- NOTE | 2017-04-19 08:36 | EKG ---
[address] [address] Measurements Intervals Broad Top Rate: 69 P: 78 AZ: 174 QRS: 269 QRSD: 170 T: -10 QT: 424 QTc: 442 Interpretive Statements SINUS RHYTHM MARKED RIGHT AXIS DEVIATION [QRS AXIS > 100] RIGHT BUNDLE BRANCH BLOCK [120+ ms QRS DURATION, UPRIGHT V1, 40+ ms S IN I/aVL/V4/V5/V6] Borderline POSSIBLE SEPTAL MYOCARDIAL INFARCTION [30 ms Q WAVE IN V1/V2], PROBABLY OLD Compared to ECG 12/13/2016 17:20:29 Sinus tachycardia no longer present ST (T wave) deviation no longer present Myocardial infarct finding still present but nubbin R waves inferiorly make the old inferior SC reading less certain Electronically Signed On 04-19-17 13:26:31 MDT by Joe Tripp MD [email or web address]
== END ==
LOC: MOB EKG 08:11
DX: R42 Dizziness and giddiness (principal); I45.10 Unspecified right bundle-branch block
CPT/HCPCS: 93005; 93010

== ENCOUNTER 2018-05-05 11:57 | Observation (INO) ==
[2018-05-05] MEDS ORDERED: ONDANSETRON 4 MG/2 ML VIAL IVP ONE (12:37)
[2018-05-05] MEDS ORDERED: Sodium Chloride 0.9% 1,000 ML PRIMARY IV ONE ×2 (12:37→13:59)
[2018-05-05 13:07] LABS: BASOPHILS # (AUTO) 0.03 10*3/UL; BASOPHILS % (AUTO) 0.2 % (0-1); EOSINOPHILS # (AUTO) 0.03 10*3/UL; EOSINOPHILS % (AUTO) 0.2 % (0-8); Hematocrit [HCT] 41.2 % (42.0-52.0); Hemoglobin [HGB] 13.6 g/dL (14.0-18.0); LYMPHOCYTES # (AUTO) 1.11 10*3/uL; MEAN CORPUSCULAR HEMOGLOBIN 29.8 PG (27-31); MEAN CORPUSCULAR VOLUME 90.2 FL (80-90); MONOCYTES # (AUTO) 2.87 10*3/UL (0.3-0.8); MONOCYTES % (AUTO) 16.7 % (5-15); NEUTROPHILS # (AUTO) 13.12 10*3/UL; NEUTROPHILS % (AUTO) 76.2 % (50-80); RED BLOOD COUNT 4.57 10^6/uL (4.70-6.10)
[2018-05-05 13:20] LABS: BLOOD UREA NITROGEN 19 mg/dL (7-22); BUN/CREATININE RATIO 23.75 (6-20); SERUM ALBUMIN 3.6 g/dL (3.5-4.8)
[2018-05-05 13:26] LABS: PLATELET MORPHOLOGY COMMENT NORMAL MORPHOLOGY (NORM); RBC MORPHOLOGY COMMENT NORMAL MORPHOLOGY (NORM); WBC MORPHOLOGY COMMENT SEE COMMENTS (NORM)
[2018-05-05 13:56] LABS: BILIRUBIN,URINE NEGATIVE (NEG); CLARITY,URINE CLEAR (CLEAR); COLOR,URINE YELLOW (Y); GLUCOSE, URINE (UA) 500 mg/dL (NEG); OCCULT BLOOD,URINE Trace-lysed (NEG); PH,URINE 5.5 (5.0-8.5); PROTEIN,URINE TRACE mg/dl (NEG); UROBILINOGEN,URINE 0.2 EU/dL (0.2)
[2018-05-05 14:08] LABS: RENAL EPITHELIAL CELLS,URINE RARE; URINE SAMPLE TYPE CLEAN CATCH URINE
--- NOTE | 2018-05-05 15:14 | DI ---
EXAM: XR Chest, 2 Views CLINICAL HISTORY: ITS.REASON leucocytosis; metastatic colon cancer Physician Notes: Tech Comments: TECHNIQUE: Frontal and lateral views of the chest. COMPARISON: No relevant prior studies available. FINDINGS: Lungs: Scattered pulmonary nodules. Pulmonary emphysema. Mild atelectasis/pneumonitis in the left lung base. Pleural space: Unremarkable. No pneumothorax. Heart: Unremarkable. No cardiomegaly. Mediastinum: Unremarkable. Bones/joints: No acute fracture. Tubes, lines and devices: Sabrina cath. IMPRESSION: Scattered pulmonary nodules. Mild atelectasis/pneumonitis in the left lung base.
--- NOTE | 2018-05-05 17:56 | PDOC ---
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 He is feeling better at present time after 1 L of the normal saline. I was called the in the ER to admit the patient for possible pneumonia. Denies chest pain or dizziness right now laying down no headaches no double vision no urinary tract infection symptoms. Past Medical History Medical History: 1. Coronary artery disease with previous [place] and stenting in 2000. 2. Diabetes since 2000. 3. Hypertension. 4. Hyperlipidemia. 5. History of acute pancreatitis in 2001 Surgical History: 1. Status post the carotid endarterectomy 2011. 2. Bilateral inguinal hernia repair in the s. 3. Right inguinal hernia repair in 2006. 4. Tonsillectomy. 5. Cataract surgery Pertinent Family History: Sister had colon cancer at age 44, father at age 74 from pancreatic cancer Past Social History: Used to smoke quit more than 10 years ago, occasionally drinks, no drugs. Tobacco Use: Never Smoker In the Past 12 Months, Have Used or Abuse Any of the Following Substance: None Medication / Allergies Home Medications: Home Medications 3 Medication Instructions Recorded Confirmed Type cholecalciferol (vitamin D3) 1,000 1,000 unit PO QDAY cap 06/20/17 05/05/18 History unit capsule finasteride 5 mg tablet 5 mg PO QDAY #90 tab 06/20/17 05/05/18 Rx losartan 100 mg tablet 50 mg PO QDAY #90 tab 06/20/17 05/05/18 History tamsulosin 0.4 mg capsule 0.4 mg PO QDAY #30 cap 06/20/17 05/05/18 History cetuximab 100 mg/50 mL intravenous 100 mg IV WEEKLY ml 09/04/17 05/05/18 History solution magnesium oxide 400 mg tablet 400 mg PO QDAY #90 tab 09/19/17 05/05/18 Rx albuterol sulfate HFA 90 1 inh INH QID PRN #18 g 11/21/17 05/05/18 Rx mcg/actuation aerosol inhaler aspirin 81 mg tablet,delayed 81 mg PO QDAY tab 12/19/17 05/05/18 History release blood sugar diagnostic strips 1 strip MISCELLANEOUS QDAY strip 12/19/17 History sitagliptin 50 mg tablet 50 mg PO QDAY tab 12/19/17 05/05/18 History ertugliflozin 5 mg tablet 5 mg PO DAILY #3 Samples 03/20/18 05/05/18 Sample sitagliptin 50 mg-metformin ER 1 tab PO DAILY #4 Samples 03/29/18 05/05/18 Sample 1,000 mg tablet,extended release 24h mp fentaNYL Patch 50mcg [Duragesic 1 ea TRANSDERM Q72H #10 patch 04/25/18 05/05/18 Rx Patch 50mcg] hydrocodone 10 mg-acetaminophen 1 tab PO Q6H PRN #60 tab 04/26/18 05/05/18 Rx 325 mg tablet Prochlorperazine Maleate 10 mg PO PRN PRN 05/05/18 05/05/18 History [Compazine] Allergies/Adverse Reactions: Allergies 3 Allergy/AdvReac Type Severity Reaction Status Date / Time clopidogrel bisulfate Allergy MUSCLE Verified 04/25/18 07:27 [From Plavix] ACHES Penicillins Allergy HIVES Verified 04/25/18 07:27 morphine AdvReac Severe VOMITING Verified 04/25/18 07:27 lorazepam [From Ativan] AdvReac NOT Verified 04/25/18 07:27 APPLICABLE Review of Systems - Review of Systems All Systems: Reviewed & No Additional Complaints Except as Stated - Respiratory Respiratory: DENIES: Negative System Review, Cough, Sputum, Dyspnea At Rest, Dyspnea with Exertion, Pleuritic Pain, Hemoptysis, Wheezing, Other, See HPI - Cardiovascular Cardiovascular: DENIES: Negative System Review, Chest Pain, Edema, Syncope, Palpitations, Orthopnea, Paroxysmal Nocturnal Dyspnea, Other, See HPI - Gastrointestinal Gastrointestinal / Abdominal: REPORTS: Nausea, Vomiting. DENIES: Diarrhea - Neurological Neurologic: REPORTS: Dizziness Exam - Vitals Vital Signs: Vital Signs Temperature 97.5 F Temperature Source Temporal Artery Scan Pulse Rate [Pulse Oximeter] 100 Respiratory Rate 18 Blood Pressure [Left Arm] 152/81 Pulse Ox 95 Oxygen Delivery Method Nasal Cannula Height 6 ft Weight 133 lb - General General Appearance: No Acute Distress, Cooperative - Eye Eye Exam: POSITIVE: Normal Appearance, PERRL, EOMI, No Scleral Icterus - Neck Neck Exam: Normal Inspection, Full ROM, No Tenderness, No Lymphadenopathy, No Thyromegaly, JVP is not Raised - Respiratory Respiratory Exam: POSITIVE: Clear to Auscultation - Bilaterally, Breathing Non Labored, Normal To Percussion, Normal to Percussion and Palpation - Cardiovascular Cardiovascular Exam: POSITIVE: RRR, No Murmur, No Clicks, No Gallops, No Rubs, PMI Non-Displaced - GI/Abdominal GI/Abdominal Exam: POSITIVE: Normal Bowel Sounds, Non Tender, Non Distended, Soft, No Masses, No Hepatomegaly, No Splenomegaly, No Organomegaly - Extremities Extremities Exam: POSITIVE: Normal Inspection, Normal Capillary Refill, No Clubbing Present, No Edema Present, No Cyanosis Present - Neurological Neurological Exam: POSITIVE: Alert, No Facial Droop, Speech Intact / Clear, Moves All Extremities Equally Results - Labs CBC and BMP: 05/05/18 12:55 05/05/18 12:55 Assessment and Plan - Patient Problems (1) Metastatic disease Current Visit: No Status: Acute Code(s): C79.9 - Secondary malignant neoplasm of unspecified site (2) Dizziness Current Visit: Yes Status: Acute Code(s): R42 - Dizziness and giddiness (3) Cancer associated pain Current Visit: No Status: Acute Code(s): G89.3 - Neoplasm related pain ( acute) (chronic) (4) Pericardial effusion Current Visit: No Status: Acute Code(s): I31.3 - Pericardial effusion ( noninflammatory) (5) Benign paroxysmal positional vertigo Current Visit: No Status: Chronic Onset Date: 05/08/17 Code(s): H81.10 - Benign paroxysmal vertigo, unspecified ear (6) Metastatic colon cancer to liver Current Visit: No Status: Chronic Code(s): C18.9 - Malignant neoplasm of colon, unspecified; C78.7 - Secondary malignant neoplasm of liver and intrahepatic bile duct (7) Type 2 diabetes mellitus without complication, with long-term current use of insulin Current Visit: No Status: Chronic Onset Date: 2000 Code(s): E11.9 - Type 2 diabetes mellitus without complications; 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 Manuel. Comes in with dizziness shortness of breath nausea and vomiting and elevated white count this could all be secondary to the cancer CT scan of his chest is pending. He is on a diabetic medication that causes orthostatic hypotension which I will hold the present time we will start sliding scale also many of the side effects from the chemotherapy can also be causing the what the patient is experiencing I will be admitting him for hydration and observation status and most likely discharge in a.m. I find no other abnormality on his labs electrolytes are within normal limits I's discussed the case with his and the patient himself.
[2018-05-05] MEDS ORDERED: fentaNYL 50 MCG/ HR PATCH TRANSDERM SCH (18:30)
[2018-05-05] MEDS ORDERED: DEXTROSE 31 GM GEL PO PRN (18:34)
[2018-05-05] MEDS ORDERED: LIDOCAINE W/ SODIUM BICARB 0.5 ML SYR SUBD PRN (18:34)
[2018-05-05] MEDS ORDERED: Prochlorperazine Tab 10 MG TAB PO PRN (18:34)
[2018-05-05] MEDS ORDERED: HYDROcodone-APAP 10 MG-325 MG TABLET PO PRN (18:34)
[2018-05-05] MEDS ORDERED: Insulin Sliding Scale Protocol SUBCUT PRN (18:34)
[2018-05-05] MEDS ORDERED: DEXTROSE 50%-WATER SYRINGE 50 ML SYRINGE IVP PRN (18:34)
[2018-05-05] MEDS ORDERED: CALCIUM CARBONATE 500 MG (TUMS) CHEWABLE TABLET PO PRN (18:34)
[2018-05-05] MEDS ORDERED: ACETAMINOPHEN 325 MG TABLET PO PRN (18:34)
[2018-05-05] MEDS ORDERED: Glucagon Inj Vial 1 MG/ML VIAL IM PRN (18:34)
[2018-05-05] MEDS ORDERED: DOCUSATE 100 MG CAPSULE PO PRN (18:34)
[2018-05-05] MEDS ORDERED: ALBUTEROL SULFATE 8.5 GM HFA INHALER INH PRN (18:34)
--- NOTE | 2018-05-05 19:12 | DI ---
EXAM: CT Angiography Chest With Intravenous Contrast, With Intrathecal Contrast CLINICAL HISTORY: ITS.REASON DR MOCK REQUEST FOR ABNORMAL CXR Physician Notes: Tech Comments: TECHNIQUE: Axial computed tomographic angiography images of the chest with intravenous contrast, with intrathecal contrast using pulmonary embolism protocol. MIP reconstructed images were created and reviewed. COMPARISON: 04/21/18 FINDINGS: There is no pulmonary embolism. Redemonstrated pulmonary arterial enlargement suggesting hypertension. Aortic atherosclerosis. No dissection or other acute aortic syndrome. Once again, there are numerous pulmonary nodules consistent with known metastatic disease. The largest right lung nodule in the posterior lower lobe that had measured 1.5 cm now measures 1.3 cm. The largest left lung nodule in the medial lower lobe is stable at 1.5 cm. Redemonstrated paraseptal emphysema, most pronounced in the upper lobes. Small pericardial effusion has decreased in size. Extensive coronary atherosclerosis. Mediastinal nodes are not well assessed due to streak artifact from contrast bolus in the superior vena cava, but may be smaller than previously. Stable 2 cm left adrenal nodule and roughly 5 cm right lobe hepatic mass, also suggesting metastatic disease. Redemonstrated infusion port in a right subclavian approach. Sclerotic left seventh rib lesion again noted, consistent with metastasis. No pathologic fracture in the interval. A superior endplate deformity of the T12 vertebral body is unchanged. No retropulsion. Stable sclerosis in the upper sternum. IMPRESSION: No PE or aortic dissection. Redemonstrated pulmonary metastases. The largest right lung nodule has slightly decreased in size in the interval. Largest left lung nodule is stable. Stable upper abdominal and osseous metastases. Small pericardial effusion has decreased in the interval.
[2018-05-05] MEDS: ONDANSETRON 4 MG/2 ML VIAL IVP PRN (19:24)
[2018-05-05] MEDS: Lactated Ringers 1,000 ML PRIMARY IV SCH (19:24)
[2018-05-05] MEDS: Insulin Lispro Flexpen 300 UNIT/3 ML INSULN.PEN SUBCUT SCH ×2 (19:25→23:22)
[2018-05-05] MEDS: ENOXAPARIN SODIUM 30 MG/0.3 ML SYRINGE SUBCUT SCH (19:27)
[2018-05-06] MEDS: Lactated Ringers 1,000 ML PRIMARY IV SCH (04:23)
[2018-05-06] MEDS: ONDANSETRON 4 MG/2 ML VIAL IVP PRN (04:35)
[2018-05-06 04:56] LABS: BASOPHILS # (AUTO) 0.03 10*3/UL; BASOPHILS % (AUTO) 0.2 % (0-1); EOSINOPHILS # (AUTO) 0.14 10*3/UL; EOSINOPHILS % (AUTO) 1.1 % (0-8); Hematocrit [HCT] 40.4 % (42.0-52.0); Hemoglobin [HGB] 13.3 g/dL (14.0-18.0); MEAN CORPUSCULAR HEMOGLOBIN 29.6 PG (27-31); MEAN CORPUSCULAR HGB CONC 32.9 g/dL (33-37); MEAN CORPUSCULAR VOLUME 89.8 FL (80-90); MEAN PLATELET VOLUME 10.4 FL (7.4-12.2); MONOCYTES # (AUTO) 2.09 10*3/UL (0.3-0.8); MONOCYTES % (AUTO) 16.5 % (5-15); NEUTROPHILS # (AUTO) 7.76 10*3/UL; NEUTROPHILS % (AUTO) 61.4 % (50-80)
[2018-05-06 05:05] LABS: BLOOD UREA NITROGEN 17 mg/dL (7-22); BUN/CREATININE RATIO 24.28 (6-20); SERUM ALBUMIN 3.4 g/dL (3.5-4.8)
[2018-05-06 05:26] LABS: PLATELET MORPHOLOGY COMMENT NORMAL MORPHOLOGY (NORM); RBC MORPHOLOGY COMMENT NORMAL MORPHOLOGY (NORM); WBC MORPHOLOGY COMMENT NORMAL MORPHOLOGY (NORM)
[2018-05-06] MEDS ORDERED: LORazepam 2 MG/1 ML VIAL IVP PRN (06:10)
--- NOTE | 2018-05-06 06:21 | PDOC ---
General Adult HPI - General Chief Complaint: General Medical Stated Complaint: NOT FEELING WELL/UPSET STOMACH/ON CHEMO Date Seen by Provider: 05/05/18 Time Seen by Provider: 12:15 Source: POSITIVE: Patient, Spouse, RN/MD, Old records Exam Limitations: POSITIVE: No limitations Nurse's Notes Reviewed & Considered: Yes EMS Report Reviewed & Considered: Verbal - History of Present Illness Initial Comment: The patient is an 82-year-old male who presents to the emergency room by ambulance. Patient has a history of metastatic colon cancer, which is reportedly supported really spread to his liver, lungs and ribs. He is being treated for this condition by Dr. Manuel, oncologist in [place]. Patient is undergoing chemotherapy and his last chemotherapy treatment was 3 days ago. Patient has been on 2 or 3 different chemotherapeutic regimens in the past. Patient had a colectomy December 25. Patient states that he had some vomiting last night and has been having "dry heaves "today. His states that the patient became "very agitated and shaky "earlier today and she became very concerned and did not think she could handle him at home, so she called the ambulance to bring the patient to the emergency room. Paramedics gave the patient Zofran ODT which seemed to help his nausea. He has a Port-A-Cath. He also has a fentanyl patch and he took some hydrocodone for pain last night. He has some problem with constipation and he took a suppositories last night and he has had a couple small bowel movements since. Patient complains of "no appetite" and weight loss. He is on home oxygen. Have you received a tetanus shot in the past 10 years?: No Body Location Affected: REPORTS: Abdomen (Nausea and vomiting), Other (As above) Timing: REPORTS: Constant Duration: <24 hours Severity: Moderate Quality: REPORTS: "Pain" (Patient has a history of chronic pain "all over" especially on his left lateral thorax; he does have a metastatic lesion to one of his left ribs) Context: REPORTS: Other (As above) Modifying Factors: improves with: Vomiting Associated Symptoms: As above Similar Symptoms Previously: Yes Recent Care Received: REPORTS: Recently Seen, Treated by MD (As above) Any Prior Injuries Related to Current Complaint?: No - Patient Home Medications Home Medications: Home Medications cholecalciferol (vitamin D3) 1,000 unit capsule 1,000 unit PO QDAY cap finasteride 5 mg tablet 5 mg PO QDAY #90 tab 06/20/17 losartan 100 mg tablet 50 mg PO QDAY #90 tab 06/20/17 tamsulosin 0.4 mg capsule 0.4 mg PO QDAY #30 cap 06/20/17 cetuximab 100 mg/50 mL intravenous solution 100 mg IV WEEKLY ml 09/04/17 magnesium oxide 400 mg tablet 400 mg PO QDAY #90 tab 09/19/17 albuterol sulfate HFA 90 mcg/actuation aerosol inhaler 1 inh INH QID PRN #18 g 11/21/17 aspirin 81 mg tablet,delayed release 81 mg PO QDAY tab 12/19/17 blood sugar diagnostic strips 1 strip MISCELLANEOUS QDAY strip 12/19/17 sitagliptin 50 mg tablet 50 mg PO QDAY tab 12/19/17 fentaNYL Patch 50mcg [Duragesic Patch 50mcg] 1 ea TRANSDERM Q72H #10 patch 04/25 hydrocodone 10 mg-acetaminophen 325 mg tablet 1 tab PO Q6H PRN #60 tab 04/26/18 Prochlorperazine Maleate [Compazine] 10 mg PO PRN PRN 05/05/18 - Patient Allergies Allergies/Adverse Reactions: Allergies 3 Allergy/AdvReac Type Severity Reaction Status Date / Time clopidogrel bisulfate Allergy MUSCLE Verified 05/06/18 06:22 [From Plavix] ACHES Penicillins Allergy HIVES Verified 05/06/18 06:22 morphine AdvReac Severe VOMITING Verified 05/06/18 06:22 lorazepam [From Ativan] AdvReac NOT Verified 05/06/18 06:22 APPLICABLE Past Medical History - heen HEENT History: Dentures/Partials Additional HEENT History: Permanant bridge on bottom Cardiovascular History: Hypertension, Previous MD, CAD, Hyperlipidemia, Other ( please comment) Additional Cardiovasular History: CORONARY STENT Respiratory History: Home Oxygen Use Additional Respiratory History: 3lpm nc at night Gastrointestinal History: Pancreatitis, Other (please comment) Additional Gastrointestinal History: POST OPERATIVE ILEUS. BOWEL OBSTRUCTION Genitourinary History: Denies History Additional Genitourinary History: Cancer mets to liver Endocrine History: Type 2 Diabetes (insulin) Musculoskeletal History: Arthritis, Gout, Other (please comment) Prosthesis or Implant: Yes (mesh/PORT/CATARACTS) Additional Musculoskeletal History: SEPTIC ARTHRITIS. HX OF GOUT Neurological History: Denies History Additional Neurological History: BENIGN PAROXYSMAL POSITIONAL VERTIGO FOR A YEAR NOW GONE. DELIRIUM-WHILE DREAMING D/T SIMVISTATON Blood Disorders: Other (please comment) Additional Blood Disorders History: VITAMIN D DEFICIENCY Psychiatric History: Denies History History of Sexually Transmitted Diseases: No Male Reproductive History: Denies History Cancer History: Colon Cancer Treatment / Date(s) of Treatment: new chemo tx. 2nd dose on 05/02/18 In Past Year Been Physically Harmed or Verbally Threatened: No History of MDRO: No History of Other Communicable Diseases: Yes (Shingles) Tobacco Use: Never Smoker Alcohol Use: None In the Past 12 Months, Have Used or Abuse Any Substance: None Previous Surgical History: Yes Type / Date of Surgery: Bilat CATARACT EXTRACTION 06/2015,. Right COLECTOMY/ LEFT CAROTID ENDARTERECTOMY SOLOMON/ CARDIAC STENT/ KNEE SCOPE 2001/ TONSILLECTOMY/ BILATERAL INGUINAL HERNIA REPAIR Anesthesia Reactions: No Malignant Hyperthermia: No Significant Family History: Cancer, Diabetes, Other (please comment) Additional Family History: RENAL FAILURE. DEMENTIA Past Medical History Reviewed: Reviewed - No Changes ROS - Limitations ROS Limitations: No Limitations Constitution: REPORTS: Weakness Cardiovascular: REPORTS: Denies Cardiac Symptoms Respiratory: REPORTS: Denies Resp Symptoms Neurological: REPORTS: Dizziness, Weakness Gastrointestinal: REPORTS: Nausea, Vomitting, Constipation, Other (Anorexia) Endocrine: REPORTS: Denies Symptoms Musculoskeletal: REPORTS: Denies MS Symptoms Genitourinary: REPORTS: Denies Symptoms Eyes: REPORTS: Denies Symptoms ENT: REPORTS: Denies Symptoms Skin: REPORTS: Denies Skin Symptoms Lympathic: REPORTS: Denies Lympathic Symptoms Immunologic: POSITIVE: Denies Symptoms Psychiatric: POSITIVE: Anxiety General Adult Exam - General Appearance General Appearance: POSITIVE: Alert, Cooperative, No Acute Distress, No Evidence of Trauma, Anxious - HEENT HEENT: POSITIVE: Head Inspection Nml, Eyes Inspection Nml, Ears Inspection Nml, Nose Inspection Nml, Oral/Dental Inspect. Nml, Pharynx Inspect. Nml, PERRL, EOMI - Pupils Pupil Size: 4 mm: Bilateral (PERRLA) - Neck Neck: POSITIVE: Normal Inspection, Thyroid Normal - Respiratory Respiratory: POSITIVE: No Respiratory Distress, Breath Sounds Normal, Chest Non- Tender, Rhonchi (Course rhonchi both lung bases) - Cardiovascular Cardiovascular: POSITIVE: Regular Rate & Rhythm, No Murmur, No Gallop, PMI Normal Peripheral Pulses: Radial (R): 2+, Radial (L): 2+ - Abdomen Abdomen: Soft: (All Quadrants), Normal Bowel Sounds: (All Quadrants), Denies Tenderness: (All Quadrants), No Splenomegaly: (All Quadrants), No Hepatomegaly: (All Quadrants), No Guarding: (All Quadrants), No Rebound: (All Quadrants), No Palpable Pulse: (All Quadrants), No Palpabale Mass: (All Quadrants), No Distention: (All Quadrants), No Rigidity: (All Quadrants) - Back Back: POSITIVE: Normal Inspection - Skin Skin: POSITIVE: Normal Color, Warm, Dry, No Rash - Extremities Extremity: Non-Tender: (All Extremities), Normal ROM: (All Extremities), Normal Inspection: (All Extremities) - Neurological / Psychological Neurological: POSITIVE: Affect Apporpriate, Oriented X3, frame cleaner Normal As Tested, Motor Normal, Sensation Normal General Adult Progress - Results Reviewed by me Xrays/CTs/US Reviewed by me: Yes Discussed with Radiologist: Yes Radiology Findings: CT scan chest done 04/21/2018 shows pulmonary nodules both lower lobes compatible with metastatic disease to the lung. He also has a metastatic lesion in the left lateral seventh rib. Chest x-ray done 04/25/2018 showed "interval development of left lower lobe infiltrate compatible with atelectasis or early pneumonia. Chest x-ray today also shows possible infiltrate left lower lung. Lab Results Reviewed by Me: Yes (White blood cell count 17,210) Lab Results:: Laboratory Results 3 05/05/18 05/05/18 05/05/18 12:55 12:55 12:55 WBC 17.21 H RBC 4.57 L Hgb 13.6 L Hct 41.2 L MCV 90.2 H MCH 29.8 MCHC 33.0 RDW Std Deviation 46.4 RDW Coeff of Mercedes 14.4 Plt Count 268 MPV 10.0 Immature Gran % (Auto) 0.3 Neut % (Auto) 76.2 Lymph % (Auto) 6.4 L Hall % (Auto) 16.7 H Eos % (Auto) 0.2 Baso % (Auto) 0.2 Immature Gran # (Auto) 0.05 Neut # (Auto) 13.12 Lymph # (Auto) 1.11 Hall # (Auto) 2.87 H Eos # (Auto) 0.03 Baso # (Auto) 0.03 WBC Morphology Comment See comments Plt Morphology Comment Normal morphology RBC Morph Comment Normal morphology Sodium 135 Potassium 5.0 Chloride 99 Carbon Dioxide 30 Anion Gap 6 BUN 19 Creatinine 0.8 BUN/Creatinine Ratio 23.75 H Glucose 146 H Calculated Osmolality 284.0 Lactic Acid Calcium 9.2 Magnesium 2.2 Total Bilirubin 1.0 AST 36 ALT 38 Alkaline Phosphatase 284 H Total Protein 6.2 Albumin 3.6 Globulin 2.6 Albumin/Globulin Ratio 1.30 Ur Collection Type Urine Color Urine Clarity Urine pH Ur Specific [place] Urine Protein Urine Glucose (UA) Urine Ketones Urine Occult Blood Urine Nitrate Urine Bilirubin Urine Urobilinogen Ur Leukocyte Esterase Urine RBC Urine WBC Ur Squamous Epith Cells Ur Renal Epithelial Cell Urine Crystals Urine Bacteria Urine Casts Urine Mucus Urine Trichomonas Urine Yeast Ur Culture Indicated? 3 05/05/18 05/05/18 13:50 14:20 WBC RBC Hgb Hct MCV MCH MCHC RDW Std Deviation RDW Coeff of [place] Plt Count MPV Immature Gran % (Auto) Neut % (Auto) Lymph % (Auto) Hall % (Auto) Eos % (Auto) Baso % (Auto) Immature Gran # (Auto) Neut # (Auto) Lymph # (Auto) Hall # (Auto) Eos # (Auto) Baso # (Auto) WBC Morphology Comment Plt Morphology Comment RBC Morph Comment Sodium Potassium Chloride Carbon Dioxide Anion Gap BUN Creatinine BUN/Creatinine Ratio Glucose Calculated Osmolality Lactic Acid 0.9 Calcium Magnesium Total Bilirubin AST ALT Alkaline Phosphatase Total Protein Albumin Globulin Albumin/Globulin Ratio Ur Collection Type Clean catch urine Urine Color Yellow Urine Clarity Clear Urine pH 5.5 Ur Specific [place] 1.010 Urine Protein Trace Urine Glucose (UA) 500 Urine Ketones 15 Urine Occult Blood Trace-lysed H Urine Nitrate Negative Urine Bilirubin Negative Urine Urobilinogen 0.2 Ur Leukocyte Esterase Negative Urine RBC 1-3 Urine WBC None Ur Squamous Epith Cells None Ur Renal Epithelial Cell Rare Urine Crystals None Urine Bacteria None Urine Casts None Urine Mucus Moderate Urine Trichomonas None Urine Yeast None Ur Culture Indicated? Culture not set CBC and BMP: 05/06/18 04:27 05/06/18 04:27 - Patient's Progress Pain Medication Addressed: POSITIVE: Not Applicable School/Work Release Addressed: POSITIVE: Not Applicable Re-Examine Time: 15:15 Re-Examine Comment: Patient states he feels much better after hydration and Zofran. I discussed the patient with his oncologist, ,, states he is not sure if the patient received any Neulasta, or other medications to elevate his white blood cell count. Patient his are adamant that they did not receive this medication. Blood cultures were drawn. Case was discussed with Dr. Johnson, hospitalist, and patient is admitted for further evaluation and treatment. Status: POSITIVE: Improved, Re-Examined Antibiotics Given: No - Consult Consult (If Yes, Name of Consulting MD & Time Called): Yes (Kaleb, oncology at [facility] [place]: Dr. Johnson hospitalist [id number]) Consulting MD will see pt:: POSITIVE: In ED, [facility] [place] Admit Counseled: POSITIVE: Patient, Family, RE: Lab Results, RE: Radiology Results, RE : DX, RE: Need for F/U Patient Care Time - Estimated PCT Patient Care Time (In Minutes): 60 Vital Signs - Recent Vital Signs Vital Signs: Vital Signs (Last 8 hours) Temp Pulse Pulse Resp BP Pulse Ox 05/06/18 04:40 97.2 F 65 18 147/66 97 05/06/18 04:31 91 05/06/18 03:00 56 L 97 05/06/18 01:00 97.7 F 77 18 163/64 98 05/05/18 23:00 59 L 99 - VS Reviewed Vital Signs Reviewed: Yes Discharge Clinical Impression: Colon cancer metastasized to multiple sites, Leukocytosis, Nausea and vomiting Condition: Fair Date Decision to Admit to Inpatient: 05/05/18 Time Decision to Admit to Inpatient: 15:30
[2018-05-06 06:35] VITALS: BP 150/54; RESP 17; TEMP 98; O2SAT 95
[2018-05-06] MEDS: Insulin Lispro Flexpen 300 UNIT/3 ML INSULN.PEN SUBCUT SCH (06:43)
[2018-05-06] MEDS ORDERED: Insulin Lispro Flexpen 300 UNIT/3 ML INSULN.PEN SUBCUT SCH (07:00)
[2018-05-06] MEDS ORDERED: ASPIRIN EC 81 MG TABLET PO SCH (09:00)
[2018-05-06] MEDS ORDERED: FINASTERIDE 5 MG TABLET PO SCH (09:00)
[2018-05-06] MEDS ORDERED: CHOLECALCIFEROL 1000 IU TABLET PO SCH (09:00)
[2018-05-06] MEDS ORDERED: TAMSULOSIN 0.4 MG CAPSULE PO SCH (09:00)
[2018-05-06] MEDS ORDERED: MAGNESIUM OXIDE 400 MG TABLET PO SCH (09:00)
[2018-05-06] MEDS: ENOXAPARIN SODIUM 30 MG/0.3 ML SYRINGE SUBCUT SCH (09:01)
--- NOTE | 2018-05-06 11:05 | DCSUMMARY ---
Hospitalization Summary Hospital Course: Final Discharge Diagnosis: Current Visit Problems Problem Status Onset Code Dizziness Acute R42 Colon cancer metastasized to multiple sites Acute C18.9 Leukocytosis Acute D72.829 Nausea and vomiting Acute R11.2 Diagnostic Data, Laboratory Data, and Procedures of Signifigance: Laboratory Results 05/05/18 05/05/18 05/05/18 Range/Units 12:55 12:55 12:55 WBC 17.21 H (4.8-10.8) 10^3/uL RBC 4.57 L (4.70-6.10) 10^6/uL Hgb 13.6 L (14.0-18.0) g/dL Hct 41.2 L (42.0-52.0) % MCV 90.2 H (80-90) FL MCH 29.8 (27-31) PG MCHC 33.0 (33-37) g/dL RDW Std Deviation 46.4 (39-50) fL RDW Coeff of Mercedes 14.4 (11.5-14.5) % Plt Count 268 (140-350) 10*3/uL MPV 10.0 (7.4-12.2) FL Immature Gran % (Auto) 0.3 (0-5) % Neut % (Auto) 76.2 (50-80) % Lymph % (Auto) 6.4 L (10-50) % Weber % (Auto) 16.7 H (5-15) % Eos % (Auto) 0.2 (0-8) % Baso % (Auto) 0.2 (0-1) % Immature Gran # (Auto) 0.05 10*3/UL Neut # (Auto) 13.12 10*3/UL Lymph # (Auto) 1.11 10*3/uL Weber # (Auto) 2.87 H (0.3-0.8) 10*3/UL Eos # (Auto) 0.03 10*3/UL Baso # (Auto) 0.03 10*3/UL WBC Morphology Comment See comments (NORM) Plt Morphology Comment Normal morphology (NORM) RBC Morph Comment Normal morphology (NORM) Sodium 135 (135-145) meq/L Potassium 5.0 (3.8-5.2) meq/L Chloride 99 (98-112) meq/L Carbon Dioxide 30 (23-33) meq/L Anion Gap 6 (5-20) BUN 19 (7-22) mg/dL Creatinine 0.8 (0.70-1.50) mg/dL BUN/Creatinine Ratio 23.75 H (6-20) Glucose 146 H (78-110) mg/dL Calculated Osmolality 284.0 (267-292) mOsm/kg Lactic Acid (0.70-2.10) MMOL/L Calcium 9.2 (8.7-10.7) mg/dL Magnesium 2.2 (1.6-2.4) mg/dL Total Bilirubin 1.0 (0.3-1.2) mg/dL AST 36 (21-57) IU/L ALT 38 (21-72) IU/L Alkaline Phosphatase 284 H (38-126) IU/L Total Protein 6.2 (6.1-8.0) g/dL Albumin 3.6 (3.5-4.8) g/dL Globulin 2.6 (2.50-4.10) g/dL Albumin/Globulin Ratio 1.30 (1.3-2.0) mg/g Ur Collection Type Urine Color (Y) Urine Clarity (CLEAR) Urine pH (5.0-8.5) Ur Specific [place] (1.005-1.030) Urine Protein (NEG) mg/dl Urine Glucose (UA) (NEG) mg/dL Urine Ketones (NEG) Urine Occult Blood (NEG) Urine Nitrate (NEG) Urine Bilirubin (NEG) Urine Urobilinogen (0.2) EU/dL Ur Leukocyte Esterase (NEG) Urine RBC (NONE) /hpf Urine WBC (NONE) Ur Squamous Epith Cells (NONE) Ur Renal Epithelial Cell (NONE) Urine Crystals Urine Bacteria (NONE) Urine Casts (NONE) Urine Mucus (NONE) Urine Trichomonas (NONE) Urine Yeast (NONE) Ur Culture Indicated? 05/05/18 05/05/18 05/06/18 Range/Units 13:50 14:20 04:27 WBC 12.65 H (4.8-10.8) 10^3/uL RBC 4.50 L (4.70-6.10) 10^6/uL Hgb 13.3 L (14.0-18.0) g/dL Hct 40.4 L (42.0-52.0) % MCV 89.8 (80-90) FL MCH 29.6 (27-31) PG MCHC 32.9 L (33-37) g/dL RDW Std Deviation 45.1 (39-50) fL RDW Coeff of Mercedes 14.0 (11.5-14.5) % Plt Count 256 (140-350) 10*3/uL MPV 10.4 (7.4-12.2) FL Immature Gran % (Auto) 0.2 (0-5) % Neut % (Auto) 61.4 (50-80) % Lymph % (Auto) 20.6 (10-50) % Weber % (Auto) 16.5 H (5-15) % Eos % (Auto) 1.1 (0-8) % Baso % (Auto) 0.2 (0-1) % Immature Gran # (Auto) 0.03 10*3/UL Neut # (Auto) 7.76 10*3/UL Lymph # (Auto) 2.60 10*3/uL Weber # (Auto) 2.09 H (0.3-0.8) 10*3/UL Eos # (Auto) 0.14 10*3/UL Baso # (Auto) 0.03 10*3/UL WBC Morphology Comment Normal morphology (NORM) Plt Morphology Comment Normal morphology (NORM) RBC Morph Comment Normal morphology (NORM) Sodium (135-145) meq/L Potassium (3.8-5.2) meq/L Chloride (98-112) meq/L Carbon Dioxide (23-33) meq/L Anion Gap (5-20) BUN (7-22) mg/dL Creatinine (0.70-1.50) mg/dL BUN/Creatinine Ratio (6-20) Glucose (78-110) mg/dL Calculated Osmolality (267-292) mOsm/kg Lactic Acid 0.9 (0.70-2.10) MMOL/L Calcium (8.7-10.7) mg/dL Magnesium (1.6-2.4) mg/dL Total Bilirubin (0.3-1.2) mg/dL AST (21-57) IU/L ALT (21-72) IU/L Alkaline Phosphatase (38-126) IU/L Total Protein (6.1-8.0) g/dL Albumin (3.5-4.8) g/dL Globulin (2.50-4.10) g/dL Albumin/Globulin Ratio (1.3-2.0) mg/g Ur Collection Type Clean catch urine Urine Color Yellow (Y) Urine Clarity Clear (CLEAR) Urine pH 5.5 (5.0-8.5) Ur Specific [place] 1.010 (1.005-1.030) Urine Protein Trace (NEG) mg/dl Urine Glucose (UA) 500 (NEG) mg/dL Urine Ketones 15 (NEG) Urine Occult Blood Trace-lysed H (NEG) Urine Nitrate Negative (NEG) Urine Bilirubin Negative (NEG) Urine Urobilinogen 0.2 (0.2) EU/dL Ur Leukocyte Esterase Negative (NEG) Urine RBC 1-3 (NONE) /hpf Urine WBC None (NONE) Ur Squamous Epith Cells None (NONE) Ur Renal Epithelial Cell Rare (NONE) Urine Crystals None Urine Bacteria None (NONE) Urine Casts None (NONE) Urine Mucus Moderate (NONE) Urine Trichomonas None (NONE) Urine Yeast None (NONE) Ur Culture Indicated? Culture not set 05/06/18 Range/Units 04:27 WBC (4.8-10.8) 10^3/uL RBC (4.70-6.10) 10^6/uL Hgb (14.0-18.0) g/dL Hct (42.0-52.0) % MCV (80-90) FL MCH (27-31) PG MCHC (33-37) g/dL RDW Std Deviation (39-50) fL RDW Coeff of Mercedes (11.5-14.5) % Plt Count (140-350) 10*3/uL MPV (7.4-12.2) FL Immature Gran % (Auto) (0-5) % Neut % (Auto) (50-80) % Lymph % (Auto) (10-50) % Weber % (Auto) (5-15) % Eos % (Auto) (0-8) % Baso % (Auto) (0-1) % Immature Gran # (Auto) 10*3/UL Neut # (Auto) 10*3/UL Lymph # (Auto) 10*3/uL Weber # (Auto) (0.3-0.8) 10*3/UL Eos # (Auto) 10*3/UL Baso # (Auto) 10*3/UL WBC Morphology Comment (NORM) Plt Morphology Comment (NORM) RBC Morph Comment (NORM) Sodium 136 (135-145) meq/L Potassium 4.7 (3.8-5.2) meq/L Chloride 103 (98-112) meq/L Carbon Dioxide 27 (23-33) meq/L Anion Gap 6 (5-20) BUN 17 (7-22) mg/dL Creatinine 0.7 (0.70-1.50) mg/dL BUN/Creatinine Ratio 24.28 H (6-20) Glucose 100 (78-110) mg/dL Calculated Osmolality 283.0 (267-292) mOsm/kg Lactic Acid (0.70-2.10) MMOL/L Calcium 9.1 (8.7-10.7) mg/dL Magnesium (1.6-2.4) mg/dL Total Bilirubin 0.7 (0.3-1.2) mg/dL AST 39 (21-57) IU/L ALT 34 (21-72) IU/L Alkaline Phosphatase 251 H (38-126) IU/L Total Protein 6.2 (6.1-8.0) g/dL Albumin 3.4 L (3.5-4.8) g/dL Globulin 2.8 (2.50-4.10) g/dL Albumin/Globulin Ratio 1.20 L (1.3-2.0) mg/g Ur Collection Type Urine Color (Y) Urine Clarity (CLEAR) Urine pH (5.0-8.5) Ur Specific [place] (1.005-1.030) Urine Protein (NEG) mg/dl Urine Glucose (UA) (NEG) mg/dL Urine Ketones (NEG) Urine Occult Blood (NEG) Urine Nitrate (NEG) Urine Bilirubin (NEG) Urine Urobilinogen (0.2) EU/dL Ur Leukocyte Esterase (NEG) Urine RBC (NONE) /hpf Urine WBC (NONE) Ur Squamous Epith Cells (NONE) Ur Renal Epithelial Cell (NONE) Urine Crystals Urine Bacteria (NONE) Urine Casts (NONE) Urine Mucus (NONE) Urine Trichomonas (NONE) Urine Yeast (NONE) Ur Culture Indicated? History and Physical pertinent to Admission: Course of Hospitalization: Is a very nice 82-year-old gentleman who has a history of colon cancer with metastasis to lungs and liver possible adrenal gland and left seventh rib comes into the hospital because of some dizziness dehydration and shortness of breath. CT scan revealed no PE no pneumonia patient was rehydrated his white count has decreased and he feels much better today he has walked around the hallway. He is not sure about his chemotherapy or aware to head from this point on they will be visiting with her kids and having a meeting with Dr. Manuel to discuss further options about treatment. I thought that was a good idea. At this point and they wished to be discharged home. I did hold one of the diabetes medications the wheelchair causes are static hypotension and the the patient has been complaining that when he first gets up he really has to wait a little bit before he does not feel dizzy this has improved here in the hospital. He will continue his metformin and [id number] On the date of discharge, the patient was examined: Gen.: [No acute distress, alert, nontoxic] Heart: [Regular rate and rhythm, no murmurs, clicks, gallops, or rubs] Lungs: [Clear to auscultation bilaterally, breathing is nonlabored] Abdomen/GI: [Normal tones on auscultation, soft, nontender, nondistended] Musculoskeletal/extremities: [No clubbing, cyanosis, or edema] Vitals reviewed and are listed below Vital Signs (24 hrs) Temp Pulse Pulse Resp BP BP BP 05/06/18 08:00 58 L 05/06/18 06:52 60 05/06/18 06:34 98 F 58 L 17 150/54 05/06/18 06:32 05/06/18 04:40 97.2 F 65 18 147/66 05/06/18 04:31 05/06/18 03:00 56 L 05/06/18 01:00 97.7 F 77 18 163/64 05/05/18 23:00 59 L 05/05/18 21:00 97.9 F 71 16 156/64 05/05/18 19:00 76 05/05/18 18:35 18 05/05/18 18:30 97.9 F 80 18 138/87 05/05/18 12:13 05/05/18 12:02 97.5 F 100 18 152/81 Pulse Ox 05/06/18 08:00 05/06/18 06:52 05/06/18 06:34 95 05/06/18 06:32 93 05/06/18 04:40 97 05/06/18 04:31 91 05/06/18 03:00 97 05/06/18 01:00 98 05/05/18 23:00 99 05/05/18 21:00 98 05/05/18 19:00 97 05/05/18 18:35 05/05/18 18:30 96 05/05/18 12:13 95 05/05/18 12:02 85 Assessment and Plan: 1. As per discharge assessments above 2. Disposition: Home 3. Condition on discharge, stable and improved. 4. Diet: regular diet 5. Activities: resume normal activities 6. Follow-Up: 1. [PCP] 2. Follow-up with Dr. Manuel next week he does have an appointment 7. Medications at the Time of Discharge: Home Medications 3 Medication Instructions Recorded Confirmed Type cholecalciferol (vitamin D3) 1,000 1,000 unit PO QDAY cap 06/20/17 05/05/18 History unit capsule finasteride 5 mg tablet 5 mg PO QDAY #90 tab 06/20/17 05/05/18 Rx losartan 100 mg tablet 50 mg PO QDAY #90 tab 06/20/17 05/05/18 History tamsulosin 0.4 mg capsule 0.4 mg PO QDAY #30 cap 06/20/17 05/05/18 History cetuximab 100 mg/50 mL intravenous 100 mg IV WEEKLY ml 09/04/17 05/05/18 History solution magnesium oxide 400 mg tablet 400 mg PO QDAY #90 tab 09/19/17 05/05/18 Rx albuterol sulfate HFA 90 1 inh INH QID PRN #18 g 11/21/17 05/05/18 Rx mcg/actuation aerosol inhaler aspirin 81 mg tablet,delayed 81 mg PO QDAY tab 12/19/17 05/05/18 History release blood sugar diagnostic strips 1 strip MISCELLANEOUS QDAY strip 12/19/17 History sitagliptin 50 mg tablet 50 mg PO QDAY tab 12/19/17 05/05/18 History sitagliptin 50 mg-metformin ER 1 tab PO DAILY #4 Samples 03/29/18 05/05/18 Sample 1,000 mg tablet,extended release 24h mp fentaNYL Patch 50mcg [Duragesic 1 ea TRANSDERM Q72H #10 patch 04/25/18 05/05/18 Rx Patch 50mcg] hydrocodone 10 mg-acetaminophen 1 tab PO Q6H PRN #60 tab 04/26/18 05/05/18 Rx 325 mg tablet Prochlorperazine Maleate 10 mg PO PRN PRN 05/05/18 05/05/18 History [Compazine] Calcium Carbonate [Tums] 1 - 2 tab PO Q6H PRN tab.chew 05/06/18 Rx 8. Time, care, counseling and coordination of care for this discharge is greater than 30 minutes. Exam - Vitals Vital Signs: Vital Signs Temperature 98 F Temperature Source Temporal Artery Scan Pulse Rate [Pulse Oximeter] 58 Pulse Rate 60 Respiratory Rate 17 Blood Pressure [Right Arm] 150/54 Blood Pressure [Left Arm] 152/81 Blood Pressure 138/87 Pulse Ox 95 Oxygen Flow Rate 1.5 Oxygen Delivery Method Nasal Cannula Height 6 ft Weight 138 lb Patient Problems - Patient Problem List (1) Metastatic disease Current Visit: No Status: Acute Code(s): C79.9 - Secondary malignant neoplasm of unspecified site Category: Medical (2) Dizziness Current Visit: Yes Status: Acute Code(s): R42 - Dizziness and giddiness Category: Medical (3) Cancer associated pain Current Visit: No Status: Acute Code(s): G89.3 - Neoplasm related pain ( acute) (chronic) Category: Medical (4) Pericardial effusion Current Visit: No Status: Acute Code(s): I31.3 - Pericardial effusion ( noninflammatory) Category: Medical (5) Benign paroxysmal positional vertigo Current Visit: No Status: Chronic Onset Date: 05/08/17 Code(s): H81.10 - Benign paroxysmal vertigo, unspecified ear Category: Medical (6) Metastatic colon cancer to liver Current Visit: No Status: Chronic Code(s): C18.9 - Malignant neoplasm of colon, unspecified; C78.7 - Secondary malignant neoplasm of liver and intrahepatic bile duct Category: Medical (7) Type 2 diabetes mellitus without complication, with long-term current use of insulin Current Visit: No Status: Chronic Onset Date: 2000 Code(s): E11.9 - Type 2 diabetes mellitus without complications; 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
[2018-05-06] MEDS ORDERED: fentaNYL 50 MCG/ HR PATCH TRANSDERM SCH (18:30)
== END 2018-05-06 11:28 | disposition home or self-care (01) ==
LOC: MED/SURG 11:57 → ER 11:57
PROVIDERS: ADMIT Internal Medicine; ATTEND Internal Medicine